=== PATIENT | male | born 1970 | race Caucasian/White ===

== ENCOUNTER → 2016-11-19 | Outpatient (CLI) | payer MEDICARE, OTHER ==
--- NOTE | 2016-11-19 19:43 | PN ---
46-year-old gentleman who has been followed in the sleep center for treatment of severe obstructive sleep apnea-hypopnea syndrome. I discussed results of the sleep studies with patient in detail. She has extremely severe obstructive sleep apnea. Apnea-hypopnea index 94.9, oxygen desaturation to 61.4%, presently he is on treatment with CPAP at 10 cm of water. I checked his CPAP unit. Usage is 30 out of 30 nights for more than 4 hours, average usage 8.3 hours. Patient feels significantly better after he started to use CPAP equipment during the sleep and during the day. [place] Sleepiness Scale is 6. Patient experiencing sometimes too much water condensating in his nasal mask. Level of the machine is about the same as level of his head during this sleep. MEDICATIONS: 1. ( ). 2. Fluoxetine. 3. Lyrica. 4. Atorvastatin. 5. Loratadine. 6. Duloxetine. 7. Carvedilol. 8. Omeprazole. 9. Aspirin. 10. Humulin. 11. ( ). During physical exam, the patient in no distress. VITAL SIGNS: BP 141/72, HR 104, RR 16. Weight 360. Temperature 97.9. Oxygen saturation at room air 94%. HEENT: PERRLA, EOMI. LUNGS: Clear. HEART: S1, S2 regular. ABDOMEN: Obese, soft, nontender. EXTREMITIES: No edema. IMPRESSION: 1. An extremely severe obstructive sleep apnea-hypopnea syndrome. Apnea-hypopnea index 94.9 with oxygen desaturation to severely low at 61.4%, mostly on control on CPAP with a pressure of 10 cm of water. Patient demonstrated great compliance with treatment, benefiting from treatment. 2. Obesity. 3. No significant periodic limb movements. 4. Hypertension. 5. Diabetes mellitus. 6. Peripheral neuropathy secondary to diabetes. 7. Hyperlipidemia. 8. Seasonal allergies. 9. Anxiety. PLAN: 1. Continue treatment with CPAP every night for the whole night. 2. Patient will change position although CPAP unit comparing to his ( ) done about one feet. 3. Sleeve for the tube, if necessary, we will use ( ) in the future. 4. Consider to change nasal mask to nasal pillows mask. 5. No driving if feeling any sleepiness. 6. Losing weight. Thank you very much for allowing me to participate in the management of your patient.
== END | disposition home or self-care (01) ==
LOC: SLEEP 15:05
PROVIDERS: ATTEND Internal Medicine
DX: G47.33 Obstructive sleep apnea (adult) (pediatric) (principal); E66.9 Obesity, unspecified; I10 Essential (primary) hypertension; E11.9 Type 2 diabetes mellitus without complications; G62.9 Polyneuropathy, unspecified; E78.5 Hyperlipidemia, unspecified; F41.9 Anxiety disorder, unspecified; T78.49XA Other allergy, initial encounter; Z79.4 Long term (current) use of insulin; Z79.82 Long term (current) use of aspirin; Z79.899 Other long term (current) drug therapy

== ENCOUNTER → 2017-11-04 | Outpatient (CLI) | payer MEDICARE, OTHER ==
--- NOTE | 2017-11-04 12:20 | PN ---
PROGRESS NOTE FOLLOW-UP VISIT DATE OF SERVICE: 11/04/2017 A 47-year-old gentleman has been followed in sleep center for treatment of obstructive sleep apnea-hypopnea syndrome. Patient continued to use his CPAP equipment every night for the whole night without significant problems. Previously he had problem with condensation of water in the tube after our recommendations he is fine now, no condensation and he may have a little bit discomfort with his mask. Otherwise, everything works well for him. I checked his CPAP unit. CPAP pressure 10 cm of water. The usage is 100% of the time more than 4 hours. Average usage is 8.7 hours per night. Apnea-hypopnea index only 2.4. No any significant leak from the machine. [place] Sleepiness Scale 11. MEDICATIONS: Fluoxetine, Lyrica, atorvastatin, loratadine, carvedilol, omeprazole, aspirin, Humulin. PHYSICAL EXAM: During physical exam, patient in no distress. VITAL SIGNS: BP 126/67, HR 104, RR 16, height 6 feet and 2 inches, weight 357, BMI 45.8. The patient has lost 3 pounds comparing with the previous visit. Temperature 97.6, oxygen saturation room air 93%. HEENT: PERRLA, EOMI. Extremely low position of soft palate, Mallampati 4. NECK: Supple, no JVD. Thyroid is not palpable. LUNGS: Clear to percussion and to auscultation. Good air exchange. No wheezing or rhonchi. HEART: S1, S2 regular. No murmurs, gallops, or rubs. ABDOMEN: Soft and nontender. Bowel sounds are present. No organomegaly appreciated. EXTREMITIES: Status post amputation of toes on the left forefoot and some sore on the left foot. [employer]ITION[employer]HT[employer]: Awake, alert, and oriented X3. Cranial nerves 2 to 7 intact. There is no fasciculation or atrophy. noted. No focal deficits observed. IMPRESSION: 1. Obstructive sleep apnea-hypopnea syndrome on full control with CPAP at 10 cm of water. Patient demonstrated 100% compliance with treatment benefitting from treatment. 2. Hypertension. 3. Diabetes mellitus. 4. Peripheral neuropathy secondary to diabetes. 5. Status post toe amputation on the left foot. 6. Some sore on the left foot, patient under evaluation for possible surgical treatment. 7. Hyperlipidemia. 8. Seasonal allergy. 9. Anxiety. 10.Obesity. PLAN: 1. Continue treatment with CPAP every night. 2. Losing weight. 3. Sleep hygiene with regular time in bed for 7-1/2 hours. 4. No driving if feeling sleepiness. 5. Prescription for all necessary supplies including mask, tube, filters. We fit patient with the new style of the mask AirFit N 10 standard and patient likes this mask very much. I will send prescription for that. Thank you very much for allowing me to participate in management of your patient. Follow-up visit in one year or earlier if patient has any problems. Sincerely, Herbert Lynn MD, PhD, FAASM Diplomat of [employer] [place] [employer] [place] [employer] Hematology Oncology Consultant of [facility] [place] MMODL / IJN: [id number] /
== END | disposition home or self-care (01) ==
LOC: SLEEP 10:53
PROVIDERS: ATTEND Internal Medicine
DX: G47.33 Obstructive sleep apnea (adult) (pediatric) (principal); E66.9 Obesity, unspecified; F41.9 Anxiety disorder, unspecified; J30.2 Other seasonal allergic rhinitis; E78.5 Hyperlipidemia, unspecified; E11.42 Type 2 diabetes mellitus with diabetic polyneuropathy; I10 Essential (primary) hypertension; Z99.89 Dependence on other enabling machines and devices; Z79.899 Other long term (current) drug therapy; Z79.82 Long term (current) use of aspirin; Z79.4 Long term (current) use of insulin; Z89.422 Acquired absence of other left toe(s)

== ENCOUNTER → 2019-02-15 | Outpatient (CLI) | payer MEDICARE, OTHER ==
[2019-02-15 13:49] VITALS: BP 145/79; PULSE 98; TEMP 98.5; BMI 43.7
--- NOTE | 2019-02-15 14:07 | P.HPBAR ---
Bariatric H&P - History & Physicial H&P Date: 02/15/19 History & Physicial: Visit/CC: consultation for RnY Patient initial contact: Initial weight: 154.63 kg Initial weight in pounds: 340.90 Height: 6 ft 3.75 in Initial BMI: 41.8 Last weight: Current weight: 161.932 kg Current weight in pounds: 357.00 Current BMI: 43.7 [place] body weight (based on NIH guidelines): 90.945 kg Excess body weight loss: The patient is a 48 year-old M who presents for Bariatric Assessment. HPI: He comes in with multiple wound debridements of his foot where he has diabetic foot ulcers. He has partial foot amputations. His blood sugars are now improved from over 9 to less than 7 and is seeing an bark fitter. He is looking into the gastric bypass for weight loss. ABDOMEN: Unremarkable MS: Partial amputation of both feet. Has foot boots ASSESSMENT: 1. Morbid obesity PLAN: 1. Bariatric labs 2. Cardiac risk assessment 3. Completion of Psych and dietary education Past Medical History Past Medical History: Diabetes Mellitus, Deep Vein Thrombosis (DVT), GERD/Reflux, Hypertension, Neurologic Disorder Additional Past Medical History / Comment(s): Type 2 DM, neuropathy in all four extremities which has led to removal of all ten of his toes, DVT hx in left leg, DVT right shoulder secondary to PICC, stress test showed "Mini heart attack", 02/15/19: currently has open wound on right foot being treated by Dr. Luke Garcia [address] [place] [address] History of Any Multi-Drug Resistant Organisms: None Reported, MRSA Year Discovered:: 2011 MDRO Source:: Left foot Past Surgical History: Orthopedic Surgery Additional Past Surgical History / Comment(s): bilateral feet all digits amputated, Staph infection in left thigh secondary to abcess removed surgically , multiple debridments and skin graft surgeries to bilateral feet Past Anesthesia/Blood Transfusion Reactions: No Reported Reaction Additional Past Anesthesia/Blood Transfusion Reaction / Comm: No blood transfusion to date Past Psychological History: Anxiety, Depression Additional Psychological History / Comment(s): Takes prozac, xanax, lyrica, and cymbalta Smoking Status: Former smoker Past Alcohol Use History: Occasional Additional Past Alcohol Use History / Comment(s): quit smoking cigarettes in 2003, Past Drug Use History: Marijuana Additional Drug Use History / Comment(s): 02/15/19: Currently uses marijuana. - Past Family History Father Family Medical History: Congestive Heart Failure (CHF), CVA/TIA Additional Family Medical History / Comment(s): at age 79 Mother Family Medical History: Cancer, COPD Additional Family Medical History / Comment(s): leukemia, at age 80 Surgical - Exam Vital Signs Temp Pulse BP 98.5 F 98 145/79 02/15/19 13:16 02/15/19 13:16 02/15/19 13:16 Bariatric Checklist Checklist: Plan: Checklist: EGD: 1. Hiatal hernia: 2. H. Pylori: HgbA1c: Vitamin D: Smoking: Former smoker Primary care physician referral: Willard Goss) Psychiatry clearance: Cardiology clearance: Sleep study: Diet journal: VTE risk score: VTE risk level: Rehab needs at discharge:
[2019-02-15 16:01] LABS: HCT 38.6 % (39.0-53.0); HGB 12.8 gm/dL (13.0-17.5); MCH 29.9 pg (25.0-35.0); MCHC 33.1 g/dL (31.0-37.0); MCV 90.2 fL (80.0-100.0); Mean Platelet Volume 7.8; Platelet Count 221 k/uL (150-450); RBC 4.28 m/uL (4.30-5.90); RDW 14.4 % (11.5-15.5); WBC 5.8 k/uL (3.8-10.6)
[2019-02-15 16:03] LABS: Partial Thromboplastin Time 24.2 sec (22.0-30.0); Prothrombin Time 10.3 sec (9.0-12.0)
[2019-02-16 00:26] LABS: Iron Saturation 23.2 (15.00-50.00)
[2019-02-16 00:30] LABS: Albumin 4.5 g/dL (3.80-4.90); Albumin/Globulin Ratio 1.45 (1.60-3.17); Calcium 9.7 mg/dL (8.7-10.3); Globulin 3.1 g/dL (1.6-3.3); LDL Cholesterol,Calculated 42.4 mg/dL (0.0-131.0); Magnesium 1.6 mg/dL (1.5-2.4); Phosphorus 2.6 mg/dL (2.4-5.1); Potassium 3.9 mmol/L (3.5-5.5); Total Bilirubin 0.5 mg/dL (0.3-1.2); Total Protein 7.6 g/dL (6.2-8.2); VLDL Calculation 54.6 mg/dL (5.00-40.00)
[2019-02-16 00:51] LABS: Vitamin D 25 Hydroxy 9.8 ng/mL (30.0-100.0)
[2019-02-16 00:57] LABS: Parathyroid Hormone Intact 32.9 pg/mL (14.0-72.0)
[2019-02-16 13:59] LABS: Zinc, Serum 68 ug/dL (60-130)
[2019-02-17 06:24] LABS: Vitamin A 74 ug/dL (38-106)
[2019-02-18 10:36] LABS: Vit B1(Thiamine) 41 ug/L (38-122)
== END ==
LOC: BARWHC3 13:04
PROVIDERS: ATTEND Surgery Plastic and Reconstructive Surgery
DX: E66.01 Morbid (severe) obesity due to excess calories (principal); E11.621 Type 2 diabetes mellitus with foot ulcer; L97.509 Non-pressure chronic ulcer of other part of unspecified foot with unspecified severity; I10 Essential (primary) hypertension; F12.90 Cannabis use, unspecified, uncomplicated; E11.40 Type 2 diabetes mellitus with diabetic neuropathy, unspecified; Z98.890 Other specified postprocedural states; Z87.891 Personal history of nicotine dependence; Z86.718 Personal history of other venous thrombosis and embolism; Z68.41 Body mass index [BMI] 40.0-44.9, adult
CPT/HCPCS: 84255; 84134; 84425; 80061; 80053; 82607; 82728; 82525; 82746; 83540; 83550; 83735; 84100; 84443; 84590; 84630; 85027; 85610; 85730; 82306; 83970; 83036; 93005; 36415; G0463; 99211

== ENCOUNTER → 2019-11-01 | Outpatient (CLI) | payer MEDICARE, OTHER ==
[2019-11-01 13:56] VITALS: BP 155/77; PULSE 99; RESP 16; TEMP 97.9; BMI 45.3
--- NOTE | 2019-11-01 15:54 | P.PN ---
Subjective Progress Note Date: 11/01/19 DATE OF SERVICE: 11/01/2019 CHIEF COMPLAINT: Morbid obesity HISTORY OF PRESENT ILLNESS: Yunier Luciano is a 48-year-old male who comes with lifelong morbid obesity. He comes in with partial foot amputations from complications from his diabetes. He is looking into the gastric bypass for weight loss. As a result of his morbid obesity, he comes in with insulin dependent diabetes type 2, obstructive sleep apnea, coronary artery disease, and multiple DVTs. He comes in with problems related to his morbid obesity. He has chronic foot ulcers. He is pending healing of his foot and sees a entry specialists. At height of 6 feet 3.75 inches, his ideal body weight is 199 pounds. He comes in 364 pounds from 356 pounds, 8 months ago. He has gained 8 pounds in 8 months. His body mass index is up to 44.7 from 43.7. He is 165 pounds overweight. PAST MEDICAL HISTORY: 1. Morbid obesity due to excess calories 2. Body mass index of 44.7 3. Diabetes type 2, insulin dependent 4. Diabetic neuropathy 5. Deep venous thrombosis leg 6. Gastroesophageal reflux disease 7. Hypertensive heart disease 8. Ischemic cardiomyopathy 9. Chronic right foot wound 10. MRSA infection 11. Anxiety 12. Depressive disorder 13. Seasonal allergies 14. Hyperlipidemia 15. Obstructive sleep apnea. PAST SURGICAL HISTORY: 1. Multiple toe amputations 2. Partial right foot amputation 3. PICC line placement, right shoulder 4. Upper endoscopy HOME MEDICATIONS: Home Medications Medication Instructions Recorded Confirmed Aspirin [Adult Low Dose Aspirin EC] 81 mg PO DAILY 05/28/16 02/15/19 Atorvastatin Calcium [Lipitor] 10 mg PO HS 05/28/16 02/15/19 FLUoxetine HCL [PROzac] 20 mg PO DAILY 05/28/16 02/15/19 Pregabalin [Lyrica] 150 mg PO BID 05/28/16 02/15/19 Carvedilol [Coreg] 25 mg PO BID 06/29/16 02/15/19 DULoxetine HCL [Cymbalta] 60 mg PO HS 06/29/16 02/15/19 Omeprazole [PriLOSEC] 20 mg PO AC-BRKFST 06/29/16 02/15/19 Multivitamin [Children's 1 tab PO DAILY 07/22/16 02/15/19 Multivitamins] ALPRAZolam [Xanax] 1 mg PO BID PRN 02/15/19 02/15/19 Exenatide Microspheres [Bydureon 2 mg SQ WEEKLY 02/15/19 02/15/19 Pen] Fenofibrate [Lofibra] 200 mg PO DAILY 02/15/19 02/15/19 Fexofenadine HCl [Latanya Allergy] 180 mg PO DAILY 02/15/19 02/15/19 Fluticasone Nasal [place] [Flonase 1 spray EA NOSTRIL DAILY 02/15/19 02/15/19 Nasal [place]] Glimepiride [Amaryl] 8 mg PO AC-BRKFST 02/15/19 02/15/19 Icosapent Ethyl [Vascepa] 1 gm PO BID 02/15/19 02/15/19 Insulin Aspart (For Pump) [NovoLOG 0.01 unit SQ-PUMP CONTINUOUS 02/15/19 02/15/19 (For Pump)] Olmesartan/Amlodipin/Hcthiazid 1 each PO DAILY 02/15/19 02/15/19 [Tribenzor 40-10-25 mg Tablet] Pioglitazone HCl 45 mg PO DAILY 02/15/19 02/15/19 metFORMIN HCL 1,000 mg PO BID 02/15/19 02/15/19 ALLERGIES: Allergies Allergy/AdvReac Type Severity Reaction Status Date / Time adhesive tape Allergy Rash/Hives Verified 02/15/19 13:31 SOCIAL HISTORY: Past tobacco use. FAMILY HISTORY: No family history of ulcerative colitis disease or Crohn's disease. Family history of morbid obesity including heart disease and diabetes. No lupus in the family. No reports of stomach or esophageal cancer. REVIEW OF ORGAN SYSTEMS: CONSTITUTIONAL: At height of 6 feet 3.75 inches, his ideal body weight is 199 pounds. Highest 364 pounds. His body mass index is 44.7. He is 165 pounds overweight. HEENT: Denies any active troubles with hearing. Has troubles with vision. ENDOCRINE: Has diabetes. No hypothyroidism. CARDIOVASCULAR: Past reports of palpitations, heart attacks, and chest pain. RESPIRATORY: Has daytime somnolence. Has obstructive sleep apnea. GASTROINTESTINAL: Denies any bright red blood per rectum. No diarrhea. No constipation. MUSCULOSKELETAL: Has lower back pain and joint pain. Has osteoarthritis of the knees. History of bilateral lower extremity edema. History of chronic wound infection. Has bilateral partial foot amputations. NEURO: No headaches. No seizure disorders. PSYCH: Has depression. No suicidal ideation. Has anxiety. RHEUMATOLOGIC: No lupus. No rheumatoid arthritis. HEMATOLOGIC: Denies any abnormal bleeding or bruising. Personal history of DVTs. SKIN: No skin cancer. MRSA of the foot. PHYSICAL EXAM: VITAL SIGNS: Height 6 foot 3.75 inches, weight 364 pounds. BMI 44.7 Vital Signs Temp 97.9 F 11/01/19 13:51 Pulse 99 11/01/19 13:51 Resp 16 11/01/19 13:51 BP 155/77 11/01/19 13:51 Pulse Ox GENERAL: Well-developed in no acute distress. HEENT: No scleral icterus. Extraocular movements grossly intact. Hears conversational speech. No nasal drainage. NECK: Supple without lymphadenopathy. CHEST: Nonlabored respirations with equal bilateral excursions. CARDIOVASCULAR: Regular rate and regular rhythm. Distal 2+ pulses. ABDOMEN: Obese, soft, nontender, nondistended. MUSCULOSKELETAL: No clubbing, cyanosis. Venous stasis disease lower extremities. Partial amputation of both feet. Has foot boots. NEURO: No focal or lateralizing signs. Cranial nerves 2 through 12 grossly within normal limits. PSYCH: Appropriate affect. Alert and oriented to person, place and time. SKIN: Good skin turgor. Well perfused. LABS: Vitamin D is low, Hgb A1c of 7%, Hgb low, HDL is low EKG shows normal sinus rhythm ASSESSMENT: 1. Morbid obesity due to excess calories 2. Body mass index of 45.3 3. Diabetes type 2, insulin dependent 4. Diabetic neuropathy 5. Deep venous thrombosis leg 6. Gastroesophageal reflux disease 7. Hypertensive heart disease 8. Ischemic cardiomyopathy 9. Chronic right foot wound 10. MRSA infection 11. Anxiety 12. Depressive disorder 13. Seasonal allergies 14. Hyperlipidemia 15. Obstructive sleep apnea. 16. Vitamin D deficiency 17. Iron deficiency anemia PLAN: 1. He is looking into the gastric bypass, and at baseline is high surgical risk with his severe diabetes type 2, severe diabetic neuropathy with partial foot amputations. 2. Recommend upper scope for risk of diabetic gastroparesis. 3. Will need bariatric labs. 4. He has completed stress test in March 2019. 5. Follow up upon completion of his upper endoscopy. Objective - Vital Signs Vital signs: Vital Signs Temp 97.9 F 11/01/19 13:51 Pulse 99 11/01/19 13:51 Resp 16 11/01/19 13:51 BP 155/77 11/01/19 13:51 Pulse Ox Intake & Output 10/31/19 11/01/19 11/01/19 18:59 06:59 18:59 Weight 165.561 kg
== END | disposition home or self-care (01) ==
LOC: BARWHC3 13:08
PROVIDERS: ATTEND Surgery Plastic and Reconstructive Surgery
DX: E66.01 Morbid (severe) obesity due to excess calories (principal); Z68.42 Body mass index [BMI] 45.0-49.9, adult; E11.9 Type 2 diabetes mellitus without complications; I82.409 Acute embolism and thrombosis of unspecified deep veins of unspecified lower extremity; K21.9 Gastro-esophageal reflux disease without esophagitis; I11.9 Hypertensive heart disease without heart failure; I25.5 Ischemic cardiomyopathy; A49.02 Methicillin resistant Staphylococcus aureus infection, unspecified site; F41.9 Anxiety disorder, unspecified; F32.9 Major depressive disorder, single episode, unspecified; J30.2 Other seasonal allergic rhinitis; E78.5 Hyperlipidemia, unspecified; G47.33 Obstructive sleep apnea (adult) (pediatric); E55.9 Vitamin D deficiency, unspecified; D50.9 Iron deficiency anemia, unspecified; S91.301A Unspecified open wound, right foot, initial encounter; E11.40 Type 2 diabetes mellitus with diabetic neuropathy, unspecified; E11.621 Type 2 diabetes mellitus with foot ulcer; Z87.891 Personal history of nicotine dependence; Z79.84 Long term (current) use of oral hypoglycemic drugs; Z79.4 Long term (current) use of insulin; Z79.82 Long term (current) use of aspirin; Z79.899 Other long term (current) drug therapy; Z91.09 Other allergy status, other than to drugs and biological substances
CPT/HCPCS: 99211

== ENCOUNTER → 2019-11-13 | Outpatient (CLI) | payer MEDICARE, OTHER ==
[2019-11-13 11:12] VITALS: BMI 45.8
== END | disposition home or self-care (01) ==
LOC: BARWHC3 08:34
PROVIDERS: ATTEND Surgery Plastic and Reconstructive Surgery
DX: E66.01 Morbid (severe) obesity due to excess calories (principal); E11.65 Type 2 diabetes mellitus with hyperglycemia; Z68.42 Body mass index [BMI] 45.0-49.9, adult
CPT/HCPCS: 97804

== ENCOUNTER 2019-11-20 06:17 | Day surgery (SDC) | payer MEDICARE, OTHER ==
[2019-11-16 11:33] VITALS: BMI 45.0
--- NOTE | 2019-11-20 03:42 | P.GSHP ---
History of Present Illness H&P Date: 11/20/19 CHIEF COMPLAINT: GERD HISTORY OF PRESENT ILLNESS: The patient is a 49-year-old male who presents reports gastroesophageal reflux disease. Upper endoscopy was offered for further evaluation and management. PAST MEDICAL HISTORY: Please see list. PAST SURGICAL HISTORY: Please see list. MEDICATIONS: Please see list. ALLERGIES: Please see list. SOCIAL HISTORY: No illicit drug use FAMILY HISTORY: No reports of Crohn disease or ulcerative colitis. REVIEW OF ORGAN SYSTEMS: CONSTITUTIONAL: No reports of fevers or chills. GI: Denies any blood in stools or constipation. PHYSICAL EXAM: VITAL SIGNS: Stable GENERAL: Well-developed and pleasant in no acute distress. HEENT: No scleral icterus. Extraocular movements grossly intact. Moist buccal mucosa. NECK: Supple without lymphadenopathy. CHEST: Unlabored respirations. Equal bilateral excursions. CARDIOVASCULAR: Regular rate and rhythm. Distal 2+ pulses. ABDOMEN: Soft, nondistended. MUSCULOSKELETAL: No clubbing, cyanosis, or edema. ASSESSMENT: 1. Gastroesophageal reflux disease PLAN: 1. Recommend proceeding with an upper endoscopy Past Medical History Past Medical History: CVA/TIA, Diabetes Mellitus, Deep Vein Thrombosis (DVT), GERD/Reflux, Hypertension, Neurologic Disorder, Sleep Apnea/CPAP/BIPAP Additional Past Medical History / Comment(s): neuropathy in all four extremities which has led to removal of all ten of his toes, DVT hx in left leg, DVT right shoulder secondary to PICC, stress test showed "Mini heart attack", 02/15/19, states no residual effects, History of Any Multi-Drug Resistant Organisms: MRSA Date of last positivie culture/infection: 2011 MDRO Source:: Left foot Past Surgical History: Orthopedic Surgery Additional Past Surgical History / Comment(s): bilateral feet all digits amputated, Staph infection in left thigh secondary to abcess removed surgically, multiple debridments and skin graft surgeries to bilateral feet, Past Anesthesia/Blood Transfusion Reactions: Previous Problems w/ Anesthesia, Postoperative Nausea & Vomiting (PONV) Additional Past Anesthesia/Blood Transfusion Reaction / Comment(s): had "high fever last surgery 04/2019, [facility]" anesthesia record obtained from then, no mention of temp or malignant hyperthermia, Past Psychological History: Anxiety, Depression Additional Psychological History / Comment(s): Takes prozac, xanax, lyrica, and cymbalta Smoking Status: Former smoker Past Alcohol Use History: Rare Additional Past Alcohol Use History / Comment(s): quit smoking cigarettes in 2003, Past Drug Use History: Marijuana Additional Drug Use History / Comment(s): 02/15/19: Currently uses marijuana. - Past Family History Father Family Medical History: Congestive Heart Failure (CHF), CVA/TIA Additional Family Medical History / Comment(s): at age 79 Mother Family Medical History: Cancer, COPD Additional Family Medical History / Comment(s): leukemia, at age 80 Medications and Allergies Home Medications Medication Instructions Recorded Confirmed Type Aspirin [Adult Low Dose Aspirin EC] 81 mg PO DAILY 05/28/16 11/16/19 History Atorvastatin Calcium [Lipitor] 10 mg PO HS 05/28/16 11/16/19 History FLUoxetine HCL [PROzac] 20 mg PO DAILY 05/28/16 11/16/19 History Pregabalin [Lyrica] 150 mg PO BID 05/28/16 11/16/19 History DULoxetine HCL [Cymbalta] 60 mg PO HS 06/29/16 11/16/19 History Omeprazole [PriLOSEC] 20 mg PO -KFST 06/29/16 11/16/19 History Multivitamin [Children's 1 tab PO DAILY 07/22/16 11/16/19 History Multivitamins] ALPRAZolam [Xanax] 1 mg PO BID PRN 02/15/19 11/16/19 History Exenatide Microspheres [Bydureon 2 mg SQ SEARS 02/15/19 11/16/19 History Pen] Fenofibrate [Lofibra] 200 mg PO DAILY 02/15/19 11/16/19 History Fluticasone Nasal [place] [Flonase 1 spray EA NOSTRIL DAILY 02/15/19 11/16/19 History Nasal [place]] Glimepiride [Amaryl] 8 mg PO -BRKFST 02/15/19 11/16/19 History Icosapent Ethyl [Vascepa] 1 gm PO BID 02/15/19 11/16/19 History Insulin Aspart (For Pump) [NovoLOG 0.01 unit SQ-PUMP CONTINUOUS 02/15/19 11/16/19 History (For Pump)] Olmesartan/Amlodipin/Hcthiazid 1 each PO DAILY 02/15/19 11/16/19 History [Tribenzor 40-10-25 mg Tablet] Pioglitazone HCl 45 mg PO DAILY 02/15/19 11/16/19 History metFORMIN HCL 1,000 mg PO BID 02/15/19 11/16/19 History Carvedilol [Coreg] 25 mg PO BID 11/16/19 11/16/19 History Cholecalciferol [Vitamin D3 (25 5,000 unit PO BID 11/16/19 11/16/19 History Mcg = 1000 Iu)] Ferrous Sulfate [Feosol] 325 mg PO DAILY 11/16/19 11/16/19 History Allergies Allergy/AdvReac Type Severity Reaction Status Date / Time adhesive tape Allergy Rash/Hives Verified 11/16/19 11:34
[~2019-11-20 06:17] MED LIST: LACTATED RINGERS 1,000 ML IV SCH; LIDOCAINE 1% 20 ML VIAL (10MG/ML) FOR IV START INTRADERMA PRN
[2019-11-20 07:18] VITALS: TEMP 97.8
[2019-11-20 07:19] LABS: Glucose,Whole Blood 109 mg/dL (75-99)
[2019-11-20] MEDS ORDERED: KETAMINE 10 MG/ML 20 ML VIAL ONE (07:25)
[2019-11-20] MEDS ORDERED: LIDOCAINE 1% INJ 10MG/ML (20 ML MDV) ONE (07:25)
[2019-11-20] MEDS ORDERED: PROPOFOL 10 MG/ML 20 ML VIAL IV ONE (07:25)
--- NOTE | 2019-11-20 07:37 | P.PCN ---
Date of Procedure: 11/20/19 Description of Procedure: PREOPERATIVE DIAGNOSIS: Gastroesophageal reflux disease. Morbid obesity. POSTOPERATIVE DIAGNOSIS: Morbid obesity. Gastritis. Gastroesophageal reflux disease. Gastroparesis secondary to diabetes with moderate retained food OPERATION: Esophagogastroduodenoscopy with biopsies along gastric cardia SURGEON: Elizabeth Kolb MD ANESTHESIA: MAC. INDICATIONS: The patient is a 47-year-old female who presents with a history of reflux disease. Benefits and risks of the procedure were described. Informed consent was obtained. DESCRIPTION: The patient was brought into the endoscopy suite and laid in the left lateral decubitus position. An Olympus gastroscope was passed along the posterior oropharynx down to the distal esophagus where the squamocolumnar junction was encountered at 40 cm from the incisors. The stomach was entered and moderate retained food was identified obscuring view of the pylorus. Additional findings are listed below. Biopsies with cold forceps were obtained of the gastric cardia. Retroflexion of the scope confirmed Hill grade 1 lower esophageal kaushal ve. The squamocolumnar junction demonstrated LA grade A erosive esophagitis. The stomach was desufflated. The patient tolerated the procedure well. FINDINGS: Squamocolumnar junction 50 cm from the incisors. Diaphragmatic hiatus at 50 cm. Hill grade 1 lower esophageal valve. LA grade A erosive esophagitis. Chronic gastritis Moderate retained food consistent with gastroparesis RECOMMENDATIONS: Upper endoscopy as needed. Recommend Reglan for gastroparesis Recommend gastric bypass for severe gastroparesis Plan - Discharge Summary Discharge Rx Participant: No New Discharge Prescriptions: No Action Pregabalin [Lyrica] 150 mg PO BID FLUoxetine HCL [PROzac] 20 mg PO DAILY Atorvastatin Calcium [Lipitor] 10 mg PO HS Aspirin [Adult Low Dose Aspirin EC] 81 mg PO DAILY Omeprazole [PriLOSEC] 20 mg PO AC-BRKFST DULoxetine HCL [Cymbalta] 60 mg PO HS Multivitamin [Children's Multivitamins] 1 tab PO DAILY Icosapent Ethyl [Vascepa] 1 gm PO BID Fluticasone Nasal [place] [Flonase Nasal [place]] 1 spray EA NOSTRIL DAILY Olmesartan/Amlodipin/Hcthiazid [Tribenzor 40-10-25 mg Tablet] 1 each PO DAILY Exenatide Microspheres [Bydureon Pen] 2 mg SQ SEARS Insulin Aspart (For Pump) [NovoLOG (For Pump)] 0.01 unit SQ-PUMP CONTINUOUS ALPRAZolam [Xanax] 1 mg PO BID PRN PRN Reason: Anxiety Pioglitazone HCl 45 mg PO DAILY Fenofibrate [Lofibra] 200 mg PO DAILY metFORMIN HCL 1,000 mg PO BID Glimepiride [Amaryl] 8 mg PO -[facility] Ferrous Sulfate [Feosol] 325 mg PO DAILY Cholecalciferol [Vitamin D3 (25 Mcg = 1000 Iu)] 5,000 unit PO BID Carvedilol [Coreg] 25 mg PO BID Discharge Medication List Aspirin [Adult Low Dose Aspirin EC] 81 mg PO DAILY 05/28/16 [History] Atorvastatin Calcium [Lipitor] 10 mg PO HS 05/28/16 [History] FLUoxetine HCL [PROzac] 20 mg PO DAILY 05/28/16 [History] Pregabalin [Lyrica] 150 mg PO BID 05/28/16 [History] DULoxetine HCL [Cymbalta] 60 mg PO HS 06/29/16 [History] Omeprazole [PriLOSEC] 20 mg PO -[facility] 06/29/16 [History] Multivitamin [Children's Multivitamins] 1 tab PO DAILY 07/22/16 [History] ALPRAZolam [Xanax] 1 mg PO BID PRN 02/15/19 [History] Exenatide Microspheres [Bydureon Pen] 2 mg SQ SEARS 02/15/19 [History] Fenofibrate [Lofibra] 200 mg PO DAILY 02/15/19 [History] Fluticasone Nasal [place] [Flonase Nasal [place]] 1 spray EA NOSTRIL DAILY 02/15/19 [History] Glimepiride [Amaryl] 8 mg PO -KT 02/15/19 [History] Icosapent Ethyl [Vascepa] 1 gm PO BID 02/15/19 [History] Insulin Aspart (For Pump) [NovoLOG (For Pump)] 0.01 unit SQ-PUMP CONTINUOUS 02/15/19 [History] Olmesartan/Amlodipin/Hcthiazid [Tribenzor 40-10-25 mg Tablet] 1 each PO DAILY 02/15/19 [History] Pioglitazone HCl 45 mg PO DAILY 02/15/19 [History] metFORMIN HCL 1,000 mg PO BID 02/15/19 [History] Carvedilol [Coreg] 25 mg PO BID 11/16/19 [History] Cholecalciferol [Vitamin D3 (25 Mcg = 1000 Iu)] 5,000 unit PO BID 11/16/19 [History] Ferrous Sulfate [Feosol] 325 mg PO DAILY 11/16/19 [History] Follow [facility]ment(s[facility] [facility] [place] [place] [facility] [place] Patient Instructions/Handouts: Diabetic Gastroparesis (DC), Gastroparesis (DC) Discharge Disposition: HOME SELF-CARE
[2019-11-20 07:41] VITALS: RESP 16
[2019-11-20 07:55] VITALS: BP 123/72; PULSE 85
== END 2019-11-20 08:08 | disposition home or self-care (01) ==
LOC: ORWHC2ENDO 06:17
PROVIDERS: ATTEND Surgery Plastic and Reconstructive Surgery
DX: K21.0 Gastro-esophageal reflux disease with esophagitis (principal); K22.10 Ulcer of esophagus without bleeding; K29.50 Unspecified chronic gastritis without bleeding; I10 Essential (primary) hypertension; E66.01 Morbid (severe) obesity due to excess calories; E11.43 Type 2 diabetes mellitus with diabetic autonomic (poly)neuropathy; K31.84 Gastroparesis; E11.42 Type 2 diabetes mellitus with diabetic polyneuropathy; F41.9 Anxiety disorder, unspecified; F32.9 Major depressive disorder, single episode, unspecified; G47.33 Obstructive sleep apnea (adult) (pediatric); Z86.73 Personal history of transient ischemic attack (TIA), and cerebral infarction without residual deficits; Z86.718 Personal history of other venous thrombosis and embolism; Z99.89 Dependence on other enabling machines and devices; Z98.890 Other specified postprocedural states; Z86.14 Personal history of Methicillin resistant Staphylococcus aureus infection; Z79.899 Other long term (current) drug therapy; Z87.891 Personal history of nicotine dependence; Z79.82 Long term (current) use of aspirin; Z79.4 Long term (current) use of insulin; Z79.51 Long term (current) use of inhaled steroids; Z91.048 Other nonmedicinal substance allergy status; Z68.42 Body mass index [BMI] 45.0-49.9, adult
CPT/HCPCS: 88305; 43239; J2001; J2704

== ENCOUNTER → 2019-12-06 | Outpatient (CLI) | payer MEDICARE, OTHER ==
[2019-12-06 14:55] VITALS: BP 160/75; PULSE 93; RESP 16; TEMP 97.6; BMI 46.0
--- NOTE | 2019-12-06 15:15 | P.PN ---
Subjective Progress Note Date: 12/06/19 HPI: He reports gastroparesis. He has history of blood clots in the arm and legs. No PE. He has history of sores along his feet. LAB: PLAN: 1. Consent 2. May need PE/DVT prophylaxis. 3. Diet of liquid for 2 days 4. Will need blood sugar monitor post op 5. Home health care. Objective - Vital Signs Vital signs: Vital Signs Temp 97.6 F 12/06/19 14:52 Pulse 93 12/06/19 14:52 Resp 16 12/06/19 14:52 BP 160/75 12/06/19 14:52 Pulse Ox Intake & Output 12/05/19 12/06/19 12/06/19 18:59 06:59 18:59 Weight 168.283 kg
== END ==
LOC: BARWHC3 14:20
PROVIDERS: ATTEND Surgery Plastic and Reconstructive Surgery
DX: K31.84 Gastroparesis (principal); Z86.79 Personal history of other diseases of the circulatory system; Z87.39 Personal history of other diseases of the musculoskeletal system and connective tissue
CPT/HCPCS: 99211

== ENCOUNTER → 2019-12-27 | Outpatient (CLI) | payer MEDICARE, OTHER ==
--- NOTE | 2019-12-27 16:13 | PN ---
PROGRESS NOTE DATE OF SERVICE: 12/27/2019 49-year-old gentleman who has [facility] for treatment of obstructive sleep apnea-hypopnea syndrome. The patient successfully continues to use his CPAP equipment every night for the whole night trying to lose weight. His weight is down 20 pounds since previous visit. I checked his CPAP unit. CPAP pressure is 8 cm of water. Usage is every night for more than 4 hours with average usage 10.2 hours per night. Masks fit 100%. Apnea-hypopnea index reading from the machine 3.5, which is in normal range. [place] Sleepiness Scale today is 3, which is normal. MEDICATIONS: NovoLog, fluticasone metformin, glimepiride, , Tribenzor, fenofibrate, atorvastatin, Lipitor, , duloxetine, carvedilol, Omeprazole . PHYSICAL EXAM: Patient in no distress. BP 127/65, HR 86, RR 16, height 6 feet 3-1/2 inches, weight 348.8 pounds, body mass index 42.9, temperature 98.2. Oxygen saturation at room air 92%. Oropharynx: Extremely low soft palate, Mallampati 4. NECK: Supple, no JVD. Thyroid is not palpable. LUNGS: Clear to percussion and to auscultation. Good air exchange. No wheezing or rhonchi. HEART: S1, S2 regular. No murmurs, gallops, or rubs. ABDOMEN: Obese. Soft and nontender. Bowel sounds are present. No organomegaly appreciated. EXTREMITIES: No clubbing or cyanosis. OPTICAL COATING TECHNICIAN: Awake, alert, and oriented X3. Cranial nerves 2 to 7 intact. There is no fasciculation or atrophy. noted. No focal deficits observed. IMPRESSION: 1. Obstructive sleep apnea-hypopnea syndrome. Patient demonstrated 100% compliance with treatment benefitting from treatment, normal respiration on CPAP. 2. Hypertension. 3. Obesity. 4. Diabetes mellitus. 5. History of peripheral neuropathy secondary to diabetes. 6. Status post left foot toe amputation. 7. Hyperlipidemia. 8. Seasonal allergy. 9. History of anxiety. PLAN: 1. Patient will continue to use CPAP equipment every night for the whole night. 2. Losing weight. 3. Sleep hygiene with regular time in bed for at least 7.5 to 8 hours. 4. No driving if feeling sleepiness. 5. I will maintain all necessary CPAP prescriptions including tube, nasal mask and filters. Thank you very much for allowing me to participate in the management of your patient. Sincerely, Herbert Lynn MD, PhD, FAASM Diplomat of [place] Investor of [facility] MMODL / АЛЕКСАНДРN: [id number] /
== END | disposition home or self-care (01) ==
LOC: SLEEP 13:20
PROVIDERS: ATTEND Internal Medicine
DX: G47.33 Obstructive sleep apnea (adult) (pediatric) (principal); I10 Essential (primary) hypertension; E66.9 Obesity, unspecified; E11.9 Type 2 diabetes mellitus without complications; E78.5 Hyperlipidemia, unspecified; J30.2 Other seasonal allergic rhinitis; Z86.59 Personal history of other mental and behavioral disorders; Z86.69 Personal history of other diseases of the nervous system and sense organs; Z89.422 Acquired absence of other left toe(s); Z68.41 Body mass index [BMI] 40.0-44.9, adult; Z79.84 Long term (current) use of oral hypoglycemic drugs; Z79.899 Other long term (current) drug therapy

== ENCOUNTER → 2019-12-28 | Outpatient (CLI) | payer MEDICARE, OTHER ==
[2019-12-28 17:23] LABS: Partial Thromboplastin Time 25.2 sec (22.0-30.0)
[2019-12-28 17:24] LABS: Basophils % (A) 0 %; Eosinophils # (A) 0.2 k/uL (0-0.7); Eosinophils % (A) 3 %; HCT 39.5 % (39.0-53.0); HGB 12.9 gm/dL (13.0-17.5); Lymphocytes # (A) 1.6 k/uL (1.0-4.8); Lymphocytes % (A) 21 %; MCH 30.2 pg (25.0-35.0); MCHC 32.6 g/dL (31.0-37.0); MCV 92.6 fL (80.0-100.0); Mean Platelet Volume 7.9; Monocytes # (A) 0.4 k/uL (0-1.0); Monocytes % (A) 6 %; Neutrophils # (A) 4.9 k/uL (1.3-7.7); Neutrophils % (A) 68 %; Platelet Count 229 k/uL (150-450); RBC 4.27 m/uL (4.30-5.90); RDW 13.2 % (11.5-15.5); WBC 7.3 k/uL (3.8-10.6)
[2019-12-28 17:37] LABS: Albumin 4.8 g/dL (3.5-5.0); Calcium 10.2 mg/dL (8.4-10.2); Potassium 4.3 mmol/L (3.5-5.1); Total Bilirubin 0.7 mg/dL (0.2-1.3); Total Protein 8.1 g/dL (6.3-8.2)
== END | disposition home or self-care (01) ==
LOC: LABWHC1 16:12
PROVIDERS: ATTEND Surgery Plastic and Reconstructive Surgery
DX: Z01.818 Encounter for other preprocedural examination (principal); E11.9 Type 2 diabetes mellitus without complications
CPT/HCPCS: 36415; 80053; 85025; 85610; 85730

== ENCOUNTER 2020-01-01 05:34 | Inpatient (IN) | payer MEDICARE, OTHER ==
[2020-01-01] MEDS ORDERED: ceFAZolin 3 GM in SODIUM CHLORIDE 0.9% 100 ML IVPB ONE (06:00)
[2020-01-01] MEDS ORDERED: HYDROmorphone 0.5 MG/0.5 ML SYRINGE IVP PRN (06:00)
[2020-01-01] MEDS ORDERED: LIDOCAINE 1% (10MG/ML) FOR IV START INTRADERMA PRN (06:00)
[2020-01-01] MEDS ORDERED: MIDAZOLAM 2 MG/2 ML VIAL IV PRN (06:00)
[2020-01-01] MEDS ORDERED: fentaNYL (PF) 50 MCG/ML 2 ML AMP IVP PRN (06:00)
[2020-01-01] MEDS ORDERED: DEXAMETHASONE SOD PHOSPHATE 10 MG/ML 1 ML VIAL IV ONE (06:00)
[2020-01-01 06:25] LABS: Glucose,Whole Blood 100 mg/dL (75-99)
[2020-01-01] MEDS ORDERED: PANTOPRAZOLE 40 MG/10 ML VIAL IV STA (06:26)
[2020-01-01] MEDS ORDERED: CHLORHEXIDINE GLUCONATE 15 ML CUP MUCOUS MEM ONE (06:26)
[2020-01-01] MEDS ORDERED: ENOXAPARIN 40 MG/0.4 ML SYRINGE SQ STA (06:26)
[2020-01-01] MEDS ORDERED: LACTATED RINGERS 1,000 ML IV ONE ×2 (06:32→09:20)
[2020-01-01] MEDS ORDERED: ONDANSETRON 4 MG/2 ML VIAL IVP ONE (06:32)
--- NOTE | 2020-01-01 06:32 | P.GSHP ---
History of Present Illness H&P Date: 01/01/20 DATE OF SERVICE: 01/01/2020 CHIEF COMPLAINT: Morbid obesity HISTORY OF PRESENT ILLNESS: Yunier Luciano is a 49-year-old male who comes with lifelong morbid obesity. He comes in with multiple wound debridements of his foot where he has diabetic foot ulcers. He has partial foot amputations. His b lood sugars are now improved with hemoglobin A1c from 9 to less than 7 and he is seeing an cutter operator brick. He is looking into the gastric bypass for weight loss. As a result of his morbid obesity, he comes in with multiple complications from his morbid obesity including insulin dependent diabetes type 2, obstructive sleep apnea, coronary artery disease, and multiple DVTs. At height of 6 feet 3.75 inches, his ideal body weight is 199 pounds. His weight was 356 pounds. His body mass index is 43.7. He is 157 pounds overweight. PAST MEDICAL HISTORY: 1. Morbid obesity due to excess calories 2. Body mass index of 43.7, initial 3. Diabetes type 2, insulin dependent 4. Diabetic neuropathy 5. Deep venous thrombosis leg 6. Gastroesophageal reflux disease 7. Hypertensive heart disease 8. Ischemic cardiomyopathy 9. Chronic right foot wound 10. MRSA infection 11. Anxiety 12. Depressive disorder 13. Seasonal allergies 14. Hyperlipidemia 15. Obstructive sleep apnea. PAST SURGICAL HISTORY: 1. Multiple toe amputations 2. Partial right foot amputation 3. PICC line placement, right shoulder HOME MEDICATIONS: Home Medications Medication Instructions Recorded Confirmed Aspirin [Adult Low Dose Aspirin EC] 81 mg PO DAILY 05/28/16 02/15/19 Atorvastatin Calcium [Lipitor] 10 mg PO HS 05/28/16 02/15/19 FLUoxetine HCL [PROzac] 20 mg PO DAILY 05/28/16 02/15/19 Pregabalin [Lyrica] 150 mg PO BID 05/28/16 02/15/19 Carvedilol [Coreg] 25 mg PO BID 06/29/16 02/15/19 DULoxetine HCL [Cymbalta] 60 mg PO HS 06/29/16 02/15/19 Omeprazole [PriLOSEC] 20 mg PO AC-BRKFST 06/29/16 02/15/19 Multivitamin [Children's 1 tab PO DAILY 07/22/16 02/15/19 Multivitamins] ALPRAZolam [Xanax] 1 mg PO BID PRN 02/15/19 02/15/19 Exenatide Microspheres [Bydureon 2 mg SQ WEEKLY 02/15/19 02/15/19 Pen] Fenofibrate [Lofibra] 200 mg PO DAILY 02/15/19 02/15/19 Fexofenadine HCl [Latanya Allergy] 180 mg PO DAILY 02/15/19 02/15/19 Fluticasone Nasal [place] [Flonase 1 spray EA NOSTRIL DAILY 02/15/19 02/15/19 Nasal [place]] Glimepiride [Amaryl] 8 mg PO AC-BRKFST 02/15/19 02/15/19 Icosapent Ethyl [Vascepa] 1 gm PO BID 02/15/19 02/15/19 Insulin Aspart (For Pump) [NovoLOG 0.01 unit SQ-PUMP CONTINUOUS 02/15/19 02/15/19 (For Pump)] Olmesartan/Amlodipin/Hcthiazid 1 each PO DAILY 02/15/19 02/15/19 [Tribenzor 40-10-25 mg Tablet] Pioglitazone HCl 45 mg PO DAILY 02/15/19 02/15/19 metFORMIN HCL 1,000 mg PO BID 02/15/19 02/15/19 ALLERGIES: Allergies Allergy/AdvReac Type Severity Reaction Status Date / Time adhesive tape Allergy Rash/Hives Verified 02/15/19 13:31 SOCIAL HISTORY: Past tobacco use. FAMILY HISTORY: No family history of ulcerative colitis disease or Crohn's disease. Family history of morbid obesity including heart disease and diabetes. No lupus in the family. No reports of stomach or esophageal cancer. REVIEW OF ORGAN SYSTEMS: CONSTITUTIONAL: At height of 6 feet 3.75 inches, his ideal body weight is 199 po unds. He comes in 356 pounds. His body mass index is 43.7. He is 157 pounds overweight. HEENT: Denies any active troubles with hearing. Has troubles with vision. ENDOCRINE: Has diabetes. No hypothyroidism. CARDIOVASCULAR: Past reports of palpitations, heart attacks, and chest pain. RESPIRATORY: Has daytime somnolence. Has obstructive sleep apnea. GASTROINTESTINAL: Denies any bright red blood per rectum. No diarrhea. No constipation. MUSCULOSKELETAL: Has lower back pain and joint pain. Has osteoarthritis of the knees. History of bilateral lower extremity edema. History of chronic wound infection. NEURO: No headaches. No seizure disorders. PSYCH: Has depression. No suicidal ideation. Has anxiety. RHEUMATOLOGIC: No lupus. No rheumatoid arthritis. HEMATOLOGIC: Denies any abnormal bleeding or bruising. Personal history of DVTs. SKIN: No skin cancer. MRSA of the foot. PHYSICAL EXAM: VITAL SIGNS: Height 6 foot 3.75 inches, weight 356 pounds. BMI 43.7 GENERAL: Well-developed in no acute distress. HEENT: No scleral icterus. Extraocular movements grossly intact. Hears conversational speech. No nasal drainage. NECK: Supple without lymphadenopathy. CHEST: Nonlabored respirations with equal bilateral excursions. CARDIOVASCULAR: Regular rate and regular rhythm. Distal 2+ pulses. ABDOMEN: Obese, soft, nontender, nondistended. MUSCULOSKELETAL: No clubbing, cyanosis. Venous stasis disease lower extremities. Partial amputation of both feet. Has foot boots. Wheel chair bound. NEURO: No focal or lateralizing signs. Cranial nerves 2 through 12 grossly within normal limits. PSYCH: Appropriate affect. Alert and oriented to person, place and time. SKIN: Good skin turgor. Well perfused. ASSESSMENT: 1. Morbid obesity due to excess calories 2. Body mass index of 43.7, initial 3. Diabetes type 2, insulin dependent 4. Diabetic neuropathy 5. Deep venous thrombosis leg 6. Gastroesophageal reflux disease 7. Hypertensive heart disease 8. Ischemic cardiomyopathy 9. Chronic right foot wound 10. MRSA infection 11. Anxiety 12. Depressive disorder 13. Seasonal allergies 14. Hyperlipidemia 15. Obstructive sleep apnea. 16. Gastroparesis PLAN: 1. Bariatric options between a sleeve, band and a Silke-en-Y gastric bypass were reviewed in detail. The patient elected for a gastric bypass. Robotic assisted approach described. 2. The [place] [facility] Data was also reviewed with benefits and risks as described. 3. An 8 page second-generation bariatric consent form was reviewed in detail including potential of bleeding, infection, leaks, adequate weight loss, nutritional deficiencies which the patient demonstrated understanding of the risks. 4. A 2 week high-protein low caloric 800 kcal diet described to address hepatomegaly. 5. Preoperative labs including complete metabolic panel and CBC with type and screen recommended. 6. DVT prophylaxis per [place] bariat[facility] surgery collaborative. 7. Antibiotic prophylaxis. 8. Inpatient hospitalization anticipated for more than 2 nights. 9. All questions and concerns were addressed with the patient. Past Medical History Past Medical History: CVA/TIA, Diabetes Mellitus, Deep Vein Thrombosis (DVT), GERD/Reflux, Hypertension, Neurologic Disorder, Sleep Apnea/CPAP/BIPAP Additional Past Medical History / Comment(s): STATES OPEN WOULD ON LEFT FOOT, STATE DR. WEBER IS AWARE. Neuropathy in all four extremities which has led to removal of all ten of his toes, DVT hx in left leg, DVT right shoulder secondary to PICC, stress test showed "Mini heart attack", 02/15/19, states no residual effects, History of Any Multi-Drug Resistant Organisms: MRSA Date of last positivie culture/infection: 2011 MDRO Source:: Left foot Past Surgical History: Orthopedic Surgery Additional Past Surgical History / Comment(s): 12/18/19 EGD. Bilateral feet all digits amputated. Staph infection in left thigh secondary to abcess removed surgically, multiple debridments and skin graft surgeries to bilateral feet, Past Anesthesia/Blood Transfusion Reactions: Previous Problems w/ Anesthesia, Postoperative Nausea & Vomiting (PONV) Additional Past Anesthesia/Blood Transfusion Reaction / Comment(s): had "high fever last surgery 04/2019, [facility]" anesthesia record obtained from then, no mention of temp or malignant hyperthermia. Past Psychological History: Anxiety, Depression Additional Psychological History / Comment(s): Takes prozac, xanax, lyrica, and cymbalta Smoking Status: Former smoker Past Alcohol Use History: Rare Additional Past Alcohol Use History / Comment(s): quit smoking cigarettes in 2003, Past Drug Use History: Marijuana Additional Drug Use History / Comment(s): 02/15/19: Currently uses marijuana. - Past Family History Father Family Medical History: Congestive Heart Failure (CHF), CVA/TIA Additional Family Medical History / Comment(s): at age 79 Mother Family Medical History: Cancer, COPD Additional Family Medical History / Comment(s): leukemia, at age 80 Medications and Allergies Home Medications Medication Instructions Recorded Confirmed Type Aspirin [Adult Low Dose Aspirin EC] 81 mg PO DAILY 05/28/16 12/28/19 History Atorvastatin Calcium [Lipitor] 10 mg PO HS 05/28/16 12/28/19 History FLUoxetine HCL [PROzac] 20 mg PO QAM 05/28/16 12/28/19 History Pregabalin [Lyrica] 150 mg PO BID 05/28/16 12/28/19 History DULoxetine HCL [Cymbalta] 60 mg PO HS 06/29/16 12/28/19 History Omeprazole [[facility]SEC] [facility]/29[facility] 12/28/19 History Multivitamin [Children's 1 tab PO DAILY 07/22/16 12/28/19 History Multivitamins] ALPRAZolam [Xanax] 1 mg PO BID PRN 02/15/19 12/28/19 History Exenatide Microspheres [Bydureon 2 mg SQ SEARS 02/15/19 12/28/19 History Pen] Fenofibrate [Lofibra] 200 mg PO QAM 02/15/19 12/28/19 History Fluticasone Nasal [place] [Flonase 1 spray EA NOSTRIL BID PRN 02/15/19 12/28/19 History Nasal [place]] Glimepiride [Amaryl] 8 mg PO [facility] 02/15/19 12/28/19 History Icosapent Ethyl [Vascepa] 2 gm PO BID 02/15/19 12/28/19 History Insulin Aspart (For Pump) [NovoLOG 0.01 unit SQ-PUMP CONTINUOUS 02/15/19 12/28/19 History (For Pump)] Olmesartan/Amlodipin/Hcthiazid 1 each PO QAM 02/15/19 12/28/19 History [Tribenzor 40-10-25 mg Tablet] Pioglitazone HCl 45 mg PO QAM 02/15/19 12/28/19 History metFORMIN HCL 1,000 mg PO BID 02/15/19 12/28/19 History Cholecalciferol [Vitamin D3 (25 5,000 unit PO BID 11/16/19 12/28/19 History Mcg = 1000 Iu)] Ferrous Sulfate [Feosol] 325 mg PO DAILY 11/16/19 12/28/19 History Carvedilol 50 mg PO BID 12/28/19 12/28/19 History Collagenase [Santyl] 1 applic TOPICAL DAILY 12/28/19 12/28/19 History Allergies Allergy/AdvReac Type Severity Reaction Status Date / Time adhesive tape Allergy Rash/Hives Verified 12/28/19 12:43 Surgical - Exam Vital Signs Temp Pulse Resp BP Pulse Ox 97.5 F L 95 18 106/55 95 01/01/20 06:14 01/01/20 06:14 01/01/20 06:14 01/01/20 06:14 01/01/20 06:14 Results - Labs Abnormal Lab Results - Last 24 Hours (Table) 01/01/20 Range/Units 06:22 POC Glucose (mg/dL) 100 H (75-99) mg/dL
[2020-01-01] MEDS ORDERED: VECURONIUM 10 MG VIAL IV ONE (07:38)
[2020-01-01] MEDS ORDERED: KETAMINE 10 MG/ML 20 ML VIAL ONE (07:38)
[2020-01-01] MEDS ORDERED: MIDAZOLAM 2 MG/2 ML VIAL ONE (07:38)
[2020-01-01] MEDS ORDERED: PHENYLEPHRINE-0.9% NACL SYG 1 MG/10 ML SYRINGE ONE (07:38)
[2020-01-01] MEDS ORDERED: GLYCOPYRROLATE 0.2 MG/ML 2 ML VIAL ONE (07:38)
[2020-01-01] MEDS ORDERED: ePHEDrine SULFATE/0.9% NACL/PF 50 MG/5 ML SYRINGE IV ONE (07:38)
[2020-01-01] MEDS ORDERED: fentaNYL (PF) 50 MCG/ML 2 ML AMP ONE (07:38)
[2020-01-01] MEDS ORDERED: NEOSTIGMINE 1 MG/ML 10 ML VIAL ONE (07:38)
[2020-01-01] MEDS ORDERED: PROPOFOL 10 MG/ML 20 ML VIAL IV ONE (07:38)
[2020-01-01] MEDS ORDERED: SUCCINYLCHOLINE CHLORIDE VIAL 200 MG/10 ML VIAL IV ONE (07:38)
[2020-01-01] MEDS ORDERED: LIDOCAINE 1% INJ 10MG/ML (20 ML MDV) ONE (07:38)
[2020-01-01] MEDS ORDERED: LIDOCAINE 1%-EPI 1:100,000 20 ML VIAL SQ ONE (08:32)
[2020-01-01 11:41] LABS: Glucose,Whole Blood 184 mg/dL (75-99)
[2020-01-01] MEDS ORDERED: HYDROmorphone 1 MG/ML 1 ML SYRINGE IVP PRN (12:03)
[2020-01-01] MEDS ORDERED: diphenhydrAMINE 50 MG/ML 1 ML VIAL IVP PRN (12:03)
[2020-01-01] MEDS ORDERED: NALOXONE 0.4 MG/ML 1 ML VIAL IV PRN (12:03)
[2020-01-01] MEDS ORDERED: FLUTICASONE 50MCG/SPRAY NASAL 16GM EA NOSTRIL PRN (12:06)
--- NOTE | 2020-01-01 12:24 | P.OP ---
Date of Procedure: 01/01/20 Description of Procedure: SURGEON: LUDA WEBER MD PREOPERATIVE DIAGNOSES: 1. Morbid obesity due to excess calories 2. Body mass index of 43.7, initial 3. Diabetes type 2, insulin dependent 4. Diabetic neuropathy 5. Deep venous thrombosis leg 6. Gastroesophageal reflux disease 7. Hypertensive heart disease 8. Ischemic cardiomyopathy 9. Chronic right foot wound 10. MRSA infection 11. Anxiety 12. Depressive disorder 13. Seasonal allergies 14. Hyperlipidemia 15. Obstructive sleep apnea. 16. Gastroparesis POSTOPERATIVE DIAGNOSES: 1. Morbid obesity due to excess calories 2. Body mass index of 43.7, initial 3. Diabetes type 2, insulin dependent 4. Diabetic neuropathy 5. Deep venous thrombosis leg 6. Gastroesophageal reflux disease 7. Hypertensive heart disease 8. Ischemic cardiomyopathy 9. Chronic right foot wound 10. MRSA infection 11. Anxiety 12. Depressive disorder 13. Seasonal allergies 14. Hyperlipidemia 15. Obstructive sleep apnea. 16. Gastroparesis OPERATION: 1. Robotic assisted da Venkata Xi laparoscopic William-en-Y gastric bypass, 100 cm antecolic antegastric William limb, with 25 mm EEA. 2. Intraoperative esophagogastrojejunoscopy. ANESTHESIA: GETA and local ESTIMATED BLOOD LOSS: 5 mL SPECIMENS REMOVED: None. COMPLICATIONS: NONE. INDICATIONS: Yunier Luciano is a 49-year-old male who comes with lifelong morbid obesity. He comes in with multiple wound debridements of his foot where he has diabetic foot ulcers. He has partial foot amputations. His blood sugars are now improved with hemoglobin A1c from 9 to less than 7 and he is seeing an master technician. He is looking into the gastric bypass for weight loss. As a result of his morbid obesity, he comes in with multiple complications from his morbid obesity including insulin dependent diabetes type 2, obstructive sleep apnea, coronary artery disease, and multiple DVTs. At height of 6 feet 3.75 inches, his ideal body weight is 199 pounds. His weight was 356 pounds. His body mass index is 43.7. He is 157 pounds overweight. DESCRIPTION: The patient was brought into the operating room theater. He was placed supine. He had received Lovenox subcutaneously for DVT prophylaxis. Additionally he Peridex oral solution as an oral decontaminant was placed per anesthesia. After general induction, the abdomen was prepped and draped in standard sterile fashion. Ioban draping was placed along the abdomen. A robotic da Venkata Xi system was prepped and primed. The xiphoid to umbilicus was measured of 21 cm. Incisions were proposed at 15 cm from the xiphoid. Proposed port sites were marked with indelible marker along the anterior axillary line bilaterally, mid clavicular line bilaterally with each port marked 10 cm from each other. The robotic stapler port was marked for the right midclavicular line including along the left midclavicular line. A protuberance along the mid abdomen at the epigastrium was identified suspicious for ventral hernia. As a result, a 5 mm 0 laparoscopic trocar entry was performed along the left upper quadrant. The abdomen was insufflated to 15 mmHg pressure, which he tolerated well. Diagnostic laparoscopy demonstrated no injury to bowel, viscera, or mesentery. The liver was large consistent with hepatomegaly and fatty liver disease. Diagnostic laparoscopy confirmed a moderately dilated stomach. No hernias were identified. I went to the head of the bed to suction the entire stomach and deflate the stomach. The 5 mm trocar remained intact. An 8 mm camera port was placed left lateral to the umbilicus at the epigastrium, 15 cm distal to the xiphoid. Next, 12-mm robot stapler port was placed along the right mid abdomen. An 12 mm port was placed along the left upper quadrant. An 8 mm port was placed on the left lateral abdominal wall under direct visualization Please note that the ports were placed 18 to 20 cm away from the target anatomy of the stomach. Care was taken to check that each robotic arm was safely away from collision with the bed or the patient. At the epigastrium, a medium sized Zev liver retractor was placed under direct visualization with the Iron Pouncing Lathe Operator placed under the right shoulder of the patient. The patient was repositioned in reverse Trendelenburg position at 20-degrees af ter lowering the bed. The robot was docked over the patient. Using grasper for arm 3, a grasper for arm 1, including vessel sealer for arm 4, the robotic system was docked and primed as described. Instruments were interchanged by the drilling assistant including endoscissors, the needle bulk driver, and stapler. I had sat at the console. Next, the transverse mesocolon was reflected into the upper abdomen after dividing the mesentery and preparing for the jejunojejunostomy portion of the case. The ligament of Treitz was identified and measured 60 cm antegrade and marked using 3-0 Silk. The jejunum was divided at the 60 cm point using 60-mm blue loads above the suture measurement. The biliopancreatic limb was held in place. The William limb was measured 100 cm in an antegrade fashion to avoid tension along the proposed gastrojejunal anastomosis. At 100 cm along the anti-mesenteric border of the William limb, a jejunojejunostomy was proposed whereby enterotomies were created along the biliopancreatic limb including the William limb using a Bovie cautery. A stay suture of 3-0 Slik was placed to align and create the anastomosis. The enterotomies along the anti-mesenteric borders were created followed by unidirectional fire from the patient's right side using 60 mm blue load Smart technology robotic stapler. The jejunojejunostomy was found to be hemostatic. The enterotomy was closed after horizontal mattress stitch of 3-0 silk used to elevate the enterotomy followed by closure with the robotic stapler blue load. The jejunal limb was temporarily tacked along the left upper quadrant. Attention was now brought to the creation of the gastrojejunostomy. Along the lesser curvature of the stomach between the second and third veins, dissection was made along the retrogastric space to allow first firing of the robotic staple. Blue loads of 60 mm staplers were used to divide the stomach to create the gastric pouch. The patient was then prepared for placement of a Orvil. The patient was Mallampati 2. A 25-mm Orvil was selected for placement by the nurse glass vial filler. The Orvil tubing was placed posterior to the staple line of the gastric pouch and brought out through the left inferior lateral port. I re-scrubbed into the case. The robotic arms were temporarily undocked. The Orvil was then carefully and successfully navigated with the help of the nurse glass vial filler into the gastric pouch. The sutures were identified and divided. The tubing was from the 25 mm anvil. As the Orvil had been placed, the blind jejunal limb was brought proximally into the upper abdomen. No torsion was found upon the William limb. No tension was identified as the limb was brought along the upper abdomen. The blind jejunal limb was previously opened using endo-scissors with cautery. The 25-mm EEA stapler was brought through the left anterior lateral port site from the left side. The EEA stapler was brought through the open jejunal limb and its needle was deployed at the antimesenteric border where the anvil were mated for approximately 1 minute upon firing. The stapler was removed after irrigating the shaft of the instrument with warm normal saline. Donuts were found to be intact and on both sides. The da Venkata Xi robot arms were then re-docked. I sat at the console. The open jejunal limb defect was closed using 60 mm blue loads after releasing any tension from the blind jejunal limb. Care was taken to avoid any long blind limb to avoid candycane syndrome. Reinforcement sutures were placed along the gastrojejunal anastomosis and placed along the 9:00 and 3 o'clock position using 3-0 Polysorb. The Engle and jejunojejunostomy mesenteric defects were obliterated by her intra-abdominal fat. I then went to the head of the bed to perform the esophagogastrojejunoscopy and a leak test. An Olympus gastroscope was passed along the posterior oropharynx which was unremarkable for any injury to the vocal cords. The scope was passed down to the proximal portion of the pouch, whereby no active bleeding was encountered. Excellent visualization of the gastrojejunostomy anastomosis, including the William limb was encountered with endoscopic image obtained. The anastomosis was found to be patent. The gastrointestinal tract was desufflated. No evidence of intraoperative leak was encountered as the gastric pouch and anastomosis were submerged under normal saline solution. The robot was then undocked. I then went back to the bedside of the patient, whereby with coordinated effort of the drilling assistant, irrigation was aspirated from the upper abdominal cavity. Tisseel was placed circumferentially over the anastomosis of the gastrojejunostomy. The fascial defect of the EEA stapler was closed using Moo Elam and 0 Vicryl. All instruments and pneumoperitoneum were evacuated from the abdominal cavity. The port correlating with the EEA stapler device was cleansed with normal saline solution and hydrogen peroxide. The rest of incisions were reapproximated using 4-0 Monocryl in an interrupted subcuticular fashion. Local anesthetic was infiltrated along the skin for postop analgesia. Liquid glue was applied to the skin. OptiFoam dressing was placed along the EEA stapler site. At the end of the procedure, needle, sponge and instrument count had been verified correct by the surgical asst. He had tolerated the procedure well and was extubated and taken to the postanesthesia unit in stable condition. Intraoperative findings were described to the patient's family who were very pleased with the level of care. Total console time 96 minutes Operative Findings: 1. Biliopancreatic limb 60 cm 2. Bypass performed using 100 cm william limb secondary to avoid increased tension at 150 cm. 3. Huerta defect and jejunojejunostomy defect obliterated by moderate intra- abdominal fat. 4. Leak test negative with gastrojejunal anastomosis patent and hemostatic. 5. Robotic staplers total of 10 combined 60-mm blue, 60-mm green to gastric pouch 6. Reinforcement sutures were placed along the gastrojejunal anastomosis 7. Fatty liver disease with hepatomegaly
[2020-01-01 14:16] LABS: Glucose,Whole Blood 222 mg/dL (75-99)
[2020-01-01] MEDS ORDERED: SODIUM CHLORIDE 0.9% 1,000 ML IV ONE (14:19)
[2020-01-01] MEDS ORDERED: INSULIN ASPART (NovoLOG) 100 UNIT/ML VIAL SQ ONE (14:27)
[2020-01-01] MEDS ORDERED: ceFAZolin 3 GM in SODIUM CHLORIDE 0.9% 100 ML IVPB SCH (16:00)
[2020-01-01] MEDS: LACTATED RINGERS 1,000 ML IV SCH (16:10)
[2020-01-01] MEDS: ALBUTEROL NEBULIZED 2.5 MG/3 ML INHALATION SCH ×2 (16:40→20:06)
[2020-01-01] MEDS: CARVEDILOL 12.5 MG TAB PO SCH (17:41)
[2020-01-01] MEDS: 0.9% NACL WITH KCL 20 MEQ/L 1,000 ML IV SCH ×2 (17:43→19:39)
[2020-01-01 18:02] LABS: Glucose,Whole Blood 203 mg/dL (75-99)
[2020-01-01] MEDS: INSULIN ASPART (NovoLOG) 100 UNIT/ML VIAL SQ SCH (18:18)
[2020-01-01] MEDS: ACETAMINOPHEN IV (For NPO) 1,000 MG in EMPTY BAG 1 BAG IVPB SCH (18:18)
[2020-01-01] MEDS: HYOSCYAMINE ORAL DROPS 1.875 MG/15 ML BOTTLE PO SCH (18:20)
[2020-01-01] MEDS: SIMETHICONE 40 MG/0.6 ML DROPS 2,000 MG/30 ML BOTTLE PO SCH (18:20)
[2020-01-01] MEDS: ONDANSETRON 4 MG/2 ML VIAL IVP SCH (18:20)
[2020-01-01] MEDS: PREGABALIN 75 MG CAP PO SCH (20:50)
[2020-01-01 23:58] LABS: Glucose,Whole Blood 166 mg/dL (75-99)
[2020-01-02] MEDS: INSULIN ASPART (NovoLOG) 100 UNIT/ML VIAL SQ SCH ×3 (00:24→12:02)
[2020-01-02] MEDS: SIMETHICONE 40 MG/0.6 ML DROPS 2,000 MG/30 ML BOTTLE PO SCH ×3 (00:25→11:24)
[2020-01-02] MEDS: HYOSCYAMINE ORAL DROPS 1.875 MG/15 ML BOTTLE PO SCH ×3 (00:25→11:23)
[2020-01-02] MEDS: ONDANSETRON 4 MG/2 ML VIAL IVP SCH ×3 (00:25→11:24)
[2020-01-02] MEDS: ACETAMINOPHEN IV (For NPO) 1,000 MG in EMPTY BAG 1 BAG IVPB SCH ×3 (01:16→12:02)
[2020-01-02] MEDS: 0.9% NACL WITH KCL 20 MEQ/L 1,000 ML IV SCH (01:28)
[2020-01-02] MEDS: LACTATED RINGERS 1,000 ML IV SCH (05:06)
[2020-01-02 05:58] LABS: Glucose,Whole Blood 137 mg/dL (75-99)
[2020-01-02] MEDS ORDERED: ENOXAPARIN 40 MG/0.4 ML SYRINGE SQ SCH ×2 (06:00→09:00)
[2020-01-02 07:43] LABS: Basophils % (A) 0 %; Eosinophils % (A) 0 %; HCT 32.7 % (39.0-53.0); HGB 10.9 gm/dL (13.0-17.5); Lymphocytes # (A) 0.7 k/uL (1.0-4.8); Lymphocytes % (A) 10 %; MCH 31.4 pg (25.0-35.0); MCHC 33.4 g/dL (31.0-37.0); Monocytes # (A) 0.6 k/uL (0-1.0); Monocytes % (A) 7 %; Neutrophils # (A) 6.3 k/uL (1.3-7.7); Neutrophils % (A) 80 %; Platelet Count 181 k/uL (150-450); RBC 3.48 m/uL (4.30-5.90); RDW 13.3 % (11.5-15.5); WBC 7.8 k/uL (3.8-10.6)
[2020-01-02 07:52] LABS: Calcium 8.5 mg/dL (8.4-10.2); Magnesium 1.9 mg/dL (1.6-2.3); Phosphorus 3.5 mg/dL (2.5-4.5)
[2020-01-02] MEDS ORDERED: 1: MVI, ADULT NO.4 WITH VIT K 10 ML, THIAMINE 100 MG, FOLIC ACID 1 MG, POTASSIUM CHLORID IV SCH ×6 (08:00)
[2020-01-02] MEDS: ALBUTEROL NEBULIZED 2.5 MG/3 ML INHALATION SCH ×2 (08:01→12:12)
[2020-01-02] MEDS: PREGABALIN 75 MG CAP PO SCH (08:43)
[2020-01-02] MEDS: CARVEDILOL 12.5 MG TAB PO SCH (08:44)
[2020-01-02] MEDS ORDERED: COLLAGENASE 250 UNIT/GM OINTMENT 30 GM TUBE TOPICAL SCH (09:00)
[2020-01-02] MEDS ORDERED: LOSARTAN 50 MG TAB PO SCH (09:00)
[2020-01-02] MEDS ORDERED: amLODIPine 10 MG TAB PO SCH (09:00)
[2020-01-02] MEDS ORDERED: PANTOPRAZOLE 40 MG/10 ML VIAL IV SCH (09:00)
[2020-01-02] MEDS ORDERED: HYDROCHLOROTHIAZIDE 25 MG TAB PO SCH (09:00)
[2020-01-02 11:48] VITALS: BMI 41.7
[2020-01-02] MEDS ORDERED: SODIUM CHLORIDE 0.9% 2,000 ML IV STA (11:48)
[2020-01-02 12:00] LABS: Glucose,Whole Blood 149 mg/dL (75-99)
[2020-01-02] MEDS ORDERED: SODIUM FERRIC GLUCONAT-SUCROSE 125 MG in SODIUM CHLORIDE 0.9% 100 ML IVPB ONE (12:00)
--- NOTE | 2020-01-02 12:28 | P.DS ---
<Vi Palma - Last Filed: 01/02/20 12:26> Providers Expected date of discharge: 01/02/20 Hospital Course: 49-year-old male who underwent robotic-assisted laparoscopic Silke-en-Y gastric bypass with Dr. Kolb. Patient is doing well postoperatively without any immediate complications. He is tolerating clear liquid diet without nausea or vomiting. Patient is controlled on oral medications. Vital signs stable. Patient is stable for discharge home today. Please see EMR for further hospital course details. Discharge Diagnosis: 1. Morbid obesity due to excess calories 2. Body mass index of 43.7, initial 3. Diabetes type 2, insulin dependent 4. Diabetic neuropathy 5. Deep venous thrombosis leg 6. Gastroesophageal reflux disease 7. Hypertensive heart disease 8. Ischemic cardiomyopathy 9. Chronic right foot wound 10. MRSA infection 11. Anxiety 12. Depressive disorder 13. Seasonal allergies 14. Hyperlipidemia 15. Obstructive sleep apnea. 16. Gastroparesis Nurse practitioner note has been reviewed by physician. Signing provider agrees with the documented findings, assessment, and plan of care. Patient Condition at Discharge: Good Plan - Discharge Summary Discharge Rx Participant: Yes New Discharge Prescriptions: New Bisacodyl [Dulcolax] 5 mg PO DAILY PRN #10 tablet. PRN Reason: Constipation Simethicone 40 mg/0.6 ml Drops [Mylicon Drops] 40 mg PO PCHS PRN #30 ml PRN Reason: Gas Omeprazole [PriLOSEC] 40 mg PO DAILY #30 capsule. Ondansetron Odt [Zofran Odt] 4 mg PO Q8HR PRN #9 tab PRN Reason: Nausea Acetaminophen Oral Susp [Tylenol] 650 mg PO Q4H PRN #500 ml PRN Reason: Pain Continue Pregabalin [Lyrica] 150 mg PO BID FLUoxetine HCL [PROzac] 20 mg PO QAM DULoxetine HCL [Cymbalta] 60 mg PO HS Fluticasone Nasal [place] [Flonase Nasal [place]] 1 spray EA NOSTRIL BID PRN PRN Reason: Nasal Congestion Olmesartan/Amlodipin/Hcthiazid [Tribenzor 40-10-25 mg Tablet] 1 each PO QAM Exenatide Microspheres [Bydureon Pen] 2 mg SQ SEARS Insulin Aspart (For Pump) [NovoLOG (For Pump)] 0.01 unit SQ-PUMP CONTINUOUS ALPRAZolam [Xanax] 1 mg PO BID PRN PRN Reason: Anxiety Carvedilol 50 mg PO BID Collagenase [Santyl] 1 applic TOPICAL DAILY Discontinued Atorvastatin Calcium [Lipitor] 10 mg PO HS Aspirin [Adult Low Dose Aspirin EC] 81 mg PO DAILY Omeprazole [PriLOSEC] 20 mg PO AC-BRKFST Multivitamin [Children's Multivitamins] 1 tab PO DAILY Icosapent Ethyl [Vascepa] 2 gm PO BID Pioglitazone HCl 45 mg PO QAM Fenofibrate [Lofibra] 200 mg PO QAM metFORMIN HCL 1,000 mg PO BID Glimepiride [Amaryl] 8 mg PO AC-BRKFST Ferrous Sulfate [Feosol] 325 mg PO DAILY Cholecalciferol [Vitamin D3 (25 Mcg = 1000 Iu)] 5,000 unit PO BID Discharge Medication List FLUoxetine HCL [PROzac] 20 mg PO QAM 05/28/16 [History] Pregabalin [Lyrica] 150 mg PO BID 05/28/16 [History] DULoxetine HCL [Cymbalta] 60 mg PO HS 06/29/16 [History] ALPRAZolam [Xanax] 1 mg PO BID PRN 02/15/19 [History] Exenatide Microspheres [Bydureon Pen] 2 mg SQ SEARS 02/15/19 [History] Fluticasone Nasal [place] [Flonase Nasal [place]] 1 spray EA NOSTRIL BID PRN 02/15/19 [History] Insulin Aspart (For Pump) [NovoLOG (For Pump)] 0.01 unit SQ-PUMP CONTINUOUS 02/15/19 [History] Olmesartan/Amlodipin/Hcthiazid [Tribenzor 40-10-25 mg Tablet] 1 each PO QAM 02/15/19 [History] Carvedilol 50 mg PO BID 12/28/19 [History] Collagenase [Santyl] 1 applic TOPICAL DAILY 12/28/19 [History] Acetaminophen Oral Susp [Tylenol] 650 mg PO Q4H PRN #500 ml 01/02/20 [Rx] Bisacodyl [Dulcolax] 5 mg PO DAILY PRN #10 tablet. 01/02/20 [Rx] Omeprazole [PriLOSEC] 40 mg PO DAILY #30 capsule. 01/02/20 [Rx] Ondansetron Odt [Zofran Odt] 4 mg PO Q8HR PRN #9 tab 01/02/20 [Rx] Simethicone 40 mg/0.6 ml Drops [Mylicon Drops] 40 mg PO PCHS PRN #30 ml 01/02/20 [Rx] Follow up Appointment(s)/Referral(s): Elizabeth Kolb MD [STAFF PHYSICIAN] - [facility] - As Needed Patient Instructions/Handouts: Silke-en-Y Gastric Bypass (DC) Activity/Diet/Wound Care/Special Instructions: Your follow up with take place via phone over the next few days No lifting over 4 pounds You may shower. No soaking or tub baths Very light activity until you are reevaluated at your follow up appointment with your surgeon Continue diet per bariatric center schedule No straws or carbonated beverages Avoid beverages with greater than 6 g of sugar to avoid dumping syndrome Open or crush all medications greater than the size of a tic tac Telephone Dr Kolb office or Bariatric Center if any concerns Discharge Disposition: HOME SELF-CARE <Elizabeth Kolb - Last Filed: 01/03/20 14:02> Providers Date of admission: 01/01/20 05:34 Attending physician: Elizabeth Kolb Primary care physician: [facility] Course: Patient looking remarkably well following surgery. Patient had been deemed higher risk through preoperative assessment. Medication reconciliation performed including discontinuing long-acting diabetic medications to decrease risk for hypoglycemia. Patient reports having multiple hypoglycemic events prior to surgery. Additionally patient to continue with blood pressure medications. Patient stable for discharge. Telephone follow-ups will be performed by bariatric center.
[2020-01-02 16:01] VITALS: BP 142/73; PULSE 80; RESP 16; TEMP 97.7
[2020-01-03] MEDS ORDERED: BISACODYL 5 MG TABLET.DR PO PRN (08:00)
== END 2020-01-02 16:05 | disposition home or self-care (01) | DRG 621 ==
LOC: 2ORMAIN 05:34 → 4SSUR 14:13
PROVIDERS: ADMIT Surgery Plastic and Reconstructive Surgery; ATTEND Surgery Plastic and Reconstructive Surgery
PROC: 8E0W4CZ Robotic Assisted Procedure of Trunk Region, Percutaneous Endoscopic Approach (ICD-10-PCS; principal; 2020-01-01 07:30)
PROC: 0D164ZA Bypass Stomach to Jejunum, Percutaneous Endoscopic Approach (ICD-10-PCS; principal; 2020-01-01 07:30)
PROC: 0DJ08ZZ Inspection of Upper Intestinal Tract, Via Natural or Artificial Opening Endoscopic (ICD-10-PCS; principal; 2020-01-01 07:30)
DX: E66.01 Morbid (severe) obesity due to excess calories (principal); Z68.41 Body mass index [BMI] 40.0-44.9, adult; T81.89XA Other complications of procedures, not elsewhere classified, initial encounter; E11.621 Type 2 diabetes mellitus with foot ulcer; I11.9 Hypertensive heart disease without heart failure; E11.43 Type 2 diabetes mellitus with diabetic autonomic (poly)neuropathy; K76.0 Fatty (change of) liver, not elsewhere classified; I25.5 Ischemic cardiomyopathy; G47.33 Obstructive sleep apnea (adult) (pediatric); F32.9 Major depressive disorder, single episode, unspecified; F41.9 Anxiety disorder, unspecified; K31.84 Gastroparesis; E78.5 Hyperlipidemia, unspecified; I25.2 Old myocardial infarction; J30.2 Other seasonal allergic rhinitis; I25.10 Atherosclerotic heart disease of native coronary artery without angina pectoris; K21.9 Gastro-esophageal reflux disease without esophagitis; Z89.422 Acquired absence of other left toe(s); Z89.421 Acquired absence of other right toe(s); Z79.82 Long term (current) use of aspirin; Z79.4 Long term (current) use of insulin; Z79.899 Other long term (current) drug therapy; Z96.41 Presence of insulin pump (external) (internal); Z71.3 Dietary counseling and surveillance; Z86.14 Personal history of Methicillin resistant Staphylococcus aureus infection; Z86.718 Personal history of other venous thrombosis and embolism; Z91.048 Other nonmedicinal substance allergy status; Z87.891 Personal history of nicotine dependence; Z86.73 Personal history of transient ischemic attack (TIA), and cerebral infarction without residual deficits; Z99.3 Dependence on wheelchair; Z83.49 Family history of other endocrine, nutritional and metabolic diseases; Z82.49 Family history of ischemic heart disease and other diseases of the circulatory system; Z83.3 Family history of diabetes mellitus; Z80.6 Family history of leukemia; Z82.5 Family history of asthma and other chronic lower respiratory diseases
CPT/HCPCS: 80051; 82310; 82565; 83735; 84100; 84520; 85025; 86850; 86900; 86901; 94640; 94760; 94762

== ENCOUNTER → 2020-01-10 | Outpatient (CLI) | payer MEDICARE, OTHER ==
[2020-01-10 13:52] VITALS: BP 113/71; PULSE 88; RESP 16; TEMP 97.8; BMI 40.6
--- NOTE | 2020-01-10 14:04 | P.PN ---
Subjective Progress Note Date: 01/10/20 Patient seen and evaluated. He is doing very well. Protein intake is over 75 g daily. Blood sugar glucose is 150s. Her reports dizziness with standing up. Medical reconciliation performed with decreasing blood pressure medication from 225 pills twice a day to 125 pills twice a day. Dietary changes to stage III on January 15. Patient to follow up 1 month postop. He is doing extremely well. He is off all oral hypoglycemics. All questions addressed. Objective - Vital Signs Vital signs: Vital Signs Temp 97.8 F 01/10/20 13:50 Pulse 88 01/10/20 13:50 Resp 16 01/10/20 13:50 BP 113/71 01/10/20 13:50 Pulse Ox Intake & Output 01/09/20 01/10/20 01/10/20 18:59 06:59 18:59 Weight 148.325 kg
== END | disposition home or self-care (01) ==
LOC: BARWHC3 13:40
PROVIDERS: ATTEND Surgery Plastic and Reconstructive Surgery
DX: E66.01 Morbid (severe) obesity due to excess calories (principal); E11.65 Type 2 diabetes mellitus with hyperglycemia; R42 Dizziness and giddiness; Z68.41 Body mass index [BMI] 40.0-44.9, adult
CPT/HCPCS: 97803; G0463; 99211

== ENCOUNTER → 2020-01-24 | Outpatient (CLI) | payer MEDICARE, OTHER ==
[2020-01-24 20:55] LABS: Hemoglobin A1C 5.6 % (4.0-6.0)
== END | disposition home or self-care (01) ==
LOC: LABWHC1 10:57
PROVIDERS: ATTEND Thoracic Surgery (Cardiothoracic Vascular Surgery)
DX: E08.621 Diabetes mellitus due to underlying condition with foot ulcer (principal); L97.522 Non-pressure chronic ulcer of other part of left foot with fat layer exposed; Z89.432 Acquired absence of left foot; Z89.431 Acquired absence of right foot
CPT/HCPCS: 36415; 83036; 84134

== ENCOUNTER → 2020-01-31 | Outpatient (CLI) | payer MEDICARE, OTHER ==
[2020-01-31 12:01] VITALS: BMI 38.7
[2020-01-31 12:24] VITALS: BP 105/67; PULSE 87; TEMP 97.6
[2020-01-31 12:35] LABS: HCT 36.2 % (39.0-53.0); MCH 30.6 pg (25.0-35.0); MCHC 33.2 g/dL (31.0-37.0); MCV 92.1 fL (80.0-100.0); Mean Platelet Volume 9.1; Platelet Count 159 k/uL (150-450); RBC 3.93 m/uL (4.30-5.90); RDW 13.7 % (11.5-15.5); WBC 6.9 k/uL (3.8-10.6)
[2020-01-31 12:46] LABS: Partial Thromboplastin Time 25.1 sec (22.0-30.0)
--- NOTE | 2020-01-31 15:14 | P.PN ---
Subjective Progress Note Date: 01/31/20 DATE OF SERVICE: 01/31/2020 CHIEF COMPLAINT: Status post gastric bypass HISTORY OF PRESENT ILLNESS: Yunier Luciano is a 49-year-old male status post gastric bypass, 01/01/20. He is 1 month out. His weight loss is over 40 pounds in 1 month. Blood sugars are well controlled. He reports no problems with abdominal pain otherwise. He reports some trouble with swallowing dry chicken. 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 At height of 6 feet 3.25 inches, his ideal body weight is 199 pounds. Highest weight 370 pounds, BMI 46.0. Today, he comes in 311 pounds from 326 pounds, 3 weeks ago. He has lost 15 pounds in 3 weeks. His body mass index is down to 38.7. Lifetime weight loss 59 pounds. Percent excess weight loss 34 %. He is 112 pounds overweight. PHYSICAL EXAM: VITAL SIGNS: Height 6 foot 3.75 inches, weight 326 pounds. BMI 40.6 Vital Signs Temp 97.6 F 01/31/20 12:21 Pulse 87 01/31/20 12:21 Resp BP 105/67 01/31/20 12:21 Pulse Ox Intake & Output 01/31/20 02/01/20 02/01/20 18:59 06:59 18:59 Weight 141.521 kg GENERAL: Well-developed in no acute distress. HEENT: No scleral icterus. Extraocular movements grossly intact. Hears conversational speech. No nasal drainage. NECK: Supple without lymphadenopathy. CHEST: Nonlabored respirations with equal bilateral excursions. CARDIOVASCULAR: Regular rate and regular rhythm. Distal 2+ pulses. ABDOMEN: Incisions are granulated. No infection. MUSCULOSKELETAL: No clubbing, cyanosis. Has bilateral midfoot amputations. NEURO: No focal or lateralizing signs. Cranial nerves 2 through 12 grossly within normal limits. PSYCH: Appropriate affect. Alert and oriented to person, place and time. SKIN: Good skin turgor. Well perfused. ASSESSMENT: 1. Morbid obesity due to excess calories 2. Body mass index of 46.0 to 38.7 3. Diabetes type 2, insulin dependent 4. Diabetic neuropathy 5. Deep venous thrombosis leg 6. Gastroesophageal reflux disease 7. Hypertensive heart disease 8. Ischemic cardiomyopathy 9. Chronic right foot wound 10. MRSA infection 11. Anxiety 12. Depressive disorder 13. Seasonal allergies 14. Hyperlipidemia 15. Obstructive sleep apnea. 16. Vitamin D deficiency 17. Iron deficiency anemia 18. Gastroparesis 19. Status post gastric bypass 20. Orthostatic hypotension 21. Chronic bilateral PLAN: 1. Recommend bariatric labs 2. Recommend follow-up in 3 months postop. 3. Overall doing well. Objective - Vital Signs Vital signs: Vital Signs Temp 97.6 F 01/31/20 12:21 Pulse 87 01/31/20 12:21 Resp BP 105/67 01/31/20 12:21 Pulse Ox Intake & Output 01/30/20 01/31/20 01/31/20 18:59 06:59 18:59 Weight 141.521 kg - Labs CBC & Chem 7: 01/31/20 12:09 01/31/20 12:09 Labs: Abnormal Lab Results - Last 24 Hours (Table) 01/31/20 Range/Units 12:09 RBC 3.93 L (4.30-5.90) m/uL Hgb 12.0 L (13.0-17.5) gm/dL Hct 36.2 L (39.0-53.0) %
[2020-01-31 18:40] LABS: Ferritin 175.6 ng/mL (22.0-322.0)
[2020-01-31 18:42] LABS: Folate, Serum 9.2 ng/mL
[2020-01-31 20:03] LABS: % Iron Saturation 23.05 (15.00-50.00); African American GFR (CKD) 82.4 (60.0-200.0); Albumin 4.2 g/dL (3.80-4.90); Albumin/Globulin Ratio 1.56 (1.60-3.17); Anion Gap 8.7 mmol/L (4.00-12.00); BUN/Creat Ratio 28.33 Ratio (12.00-20.00); Calcium 9.3 mg/dL (8.7-10.3); Carbon Dioxide 24.3 mmol/L (21.6-31.8); Chol/HDL Ratio 4.97; Globulin 2.7 g/dL (1.6-3.3); LDL Cholesterol,Calculated 79.4 mg/dL (0.0-131.0); Magnesium 1.7 mg/dL (1.5-2.4); Non-African American GFR(CKD) 71.1 (60.0-200.0); Phosphorus 3.5 mg/dL (2.4-5.1); Potassium 4.2 mmol/L (3.5-5.5); Total Bilirubin 0.8 mg/dL (0.3-1.2); Total Protein 6.9 g/dL (6.2-8.2); VLDL Calculation 35.6 mg/dL (5.00-40.00)
[2020-02-01 13:32] LABS: Zinc, Serum 59 ug/dL (60-130)
[2020-02-02 08:27] LABS: Vit B1(Thiamine) 58 ug/L (38-122)
[2020-02-02 12:02] LABS: Vitamin A 69 ug/dL (38-106)
== END | disposition home or self-care (01) ==
LOC: BARWHC3 10:57
PROVIDERS: ATTEND Surgery Plastic and Reconstructive Surgery
DX: Z48.815 Encounter for surgical aftercare following surgery on the digestive system (principal); E66.01 Morbid (severe) obesity due to excess calories; I82.409 Acute embolism and thrombosis of unspecified deep veins of unspecified lower extremity; K21.9 Gastro-esophageal reflux disease without esophagitis; I11.9 Hypertensive heart disease without heart failure; I25.5 Ischemic cardiomyopathy; S91.301A Unspecified open wound, right foot, initial encounter; A49.02 Methicillin resistant Staphylococcus aureus infection, unspecified site; F41.8 Other specified anxiety disorders; J30.2 Other seasonal allergic rhinitis; E78.5 Hyperlipidemia, unspecified; G47.33 Obstructive sleep apnea (adult) (pediatric); E55.9 Vitamin D deficiency, unspecified; D50.9 Iron deficiency anemia, unspecified; E11.43 Type 2 diabetes mellitus with diabetic autonomic (poly)neuropathy; I95.1 Orthostatic hypotension; K31.84 Gastroparesis; Z68.38 Body mass index [BMI] 38.0-38.9, adult; Z98.84 Bariatric surgery status; Z79.4 Long term (current) use of insulin; E21.1 Secondary hyperparathyroidism, not elsewhere classified; K90.9 Intestinal malabsorption, unspecified; K74.1 Hepatic sclerosis; N19 Unspecified kidney failure; K50.90 Crohn's disease, unspecified, without complications
CPT/HCPCS: 84255; 84134; 84425; 80061; 80053; 82607; 82728; 82525; 82746; 83540; 83550; 83735; 84100; 84443; 84590; 84630; 85027; 85610; 85730; 82306; 83970; 97803; 36415; G0463; 99211

== ENCOUNTER → 2020-04-03 | Outpatient (CLI) | payer MEDICARE, OTHER ==
[2020-04-03 13:03] VITALS: BP 115/74; PULSE 75; TEMP 98.1; BMI 40.1
--- NOTE | 2020-04-03 14:04 | P.PN ---
Subjective Progress Note Date: 04/03/20 DATE OF SERVICE: 04/03/2020 CHIEF COMPLAINT: Status post gastric bypass HISTORY OF PRESENT ILLNESS: Yunier Luciano is a 49-year-old male status post gastric bypass, 01/01/20. He is 3 months out. He has lost 70 pounds in 4 months. Hgb A1c now 6.2. He is s/p gastric bypass. No moderate dysphagia. No ga stroesophageal reflux disease. He is going to the wound care center at [facility]. He has chronic wound of the left foot. No abdominal pain. He has completed his labs. He is trying to get under 300 pounds. He denies any low blood sugars and he is adjusting his blood sugar machine/insulin pump. His protein amount intake is under 75 grams daily but should be 90 grams. At height of 6 feet 3.25 inches, his ideal body weight is 199 pounds. Highest weight 370 pounds, BMI 46.0. Today, he comes in 301 pounds from 311 pounds from 326 pounds, 3 months ago. He has lost 10 pounds in 3 months. His body mass index is down to 37.5. Lifetime weight loss 69 pounds. Percent excess weight loss 40 %. He is 102 pounds overweight. PHYSICAL EXAM: VITAL SIGNS: Height 6 foot 3.25 inches, weight 301 pounds. BMI 37.5 Vital Signs Temp 98.1 F 04/03/20 13:02 Pulse 75 04/03/20 13:02 Resp BP 115/74 04/03/20 13:02 Pulse Ox GENERAL: Well-developed in no acute distress. HEENT: No scleral icterus. Extraocular movements grossly intact. Hears conversational speech. No nasal drainage. NECK: Supple without lymphadenopathy. CHEST: Nonlabored respirations with equal bilateral excursions. CARDIOVASCULAR: Regular rate and regular rhythm. Distal 2+ pulses. ABDOMEN: No abdominal wall hernia. No infection. MUSCULOSKELETAL: No clubbing, cyanosis. NEURO: No focal or lateralizing signs. Cranial nerves 2 through 12 grossly within normal limits. PSYCH: Appropriate affect. Alert and oriented to person, place and time. SKIN: Good skin turgor. Well perfused. LABS: Reviewed. AST and ALT elevated. Triglycerides elevated. Zinc is low. Hgb low 12.0 ASSESSMENT: 1. Morbid obesity due to excess calories 2. Body mass index of 46.0 to 37.5 3. Diabetes type 2, insulin dependent 4. Diabetic neuropathy 5. Deep venous thrombosis leg 6. Gastroesophageal reflux disease 7. Hypertensive heart disease 8. Ischemic cardiomyopathy 9. Chronic right foot wound 10. MRSA infection 11. Anxiety 12. Depressive disorder 13. Seasonal allergies 14. Hyperlipidemia 15. Obstructive sleep apnea. 16. Vitamin D deficiency 17. Iron deficiency anemia 18. Gastroparesis 19. Status post gastric bypass 20. Orthostatic hypotension 21. Chronic bilateral PLAN: 1. Recommend bariatric labs, 3 months outt 2. Increase protein intake over 90 grams daily. Objective - Vital Signs Vital signs: Vital Signs Temp 98.1 F 04/03/20 13:02 Pulse 75 04/03/20 13:02 Resp BP 115/74 04/03/20 13:02 Pulse Ox Intake & Output 04/02/20 04/03/20 04/03/20 18:59 06:59 18:59 Weight 136.985 kg - Labs CBC & Chem 7: 04/03/20 14:41 04/03/20 14:41
[2020-04-03 14:58] LABS: HCT 39.1 % (39.0-53.0); HGB 12.4 gm/dL (13.0-17.5); MCH 29.5 pg (25.0-35.0); MCHC 31.8 g/dL (31.0-37.0); Mean Platelet Volume 8.2; Platelet Count 178 k/uL (150-450); RBC 4.21 m/uL (4.30-5.90); RDW 14.6 % (11.5-15.5); WBC 8.6 k/uL (3.8-10.6)
[2020-04-03 15:08] LABS: Partial Thromboplastin Time 25.6 sec (22.0-30.0)
[2020-04-04 00:40] LABS: Ferritin 127.8 ng/mL (22.0-322.0)
[2020-04-04 00:52] LABS: % Iron Saturation 16.13 (15.00-50.00); African American GFR (CKD) 116.6 (60.0-200.0); Albumin 4.1 g/dL (3.80-4.90); Albumin/Globulin Ratio 1.58 (1.60-3.17); Anion Gap 6.4 mmol/L (4.00-12.00); BUN/Creat Ratio 17.78 Ratio (12.00-20.00); Calcium 9.2 mg/dL (8.7-10.3); Carbon Dioxide 32.6 mmol/L (21.6-31.8); Chol/HDL Ratio 5.26; Folate, Serum 17.1 ng/mL; Globulin 2.6 g/dL (1.6-3.3); Magnesium 1.9 mg/dL (1.5-2.4); Non-African American GFR(CKD) 100.6 (60.0-200.0); Phosphorus 3.7 mg/dL (2.4-5.1); Potassium 3.1 mmol/L (3.5-5.5); Total Bilirubin 0.7 mg/dL (0.3-1.2); Total Protein 6.7 g/dL (6.2-8.2)
[2020-04-04 09:25] LABS: Hemoglobin A1C 4.8 % (4.0-6.0)
[2020-04-05 08:11] LABS: Vit B1(Thiamine) 63 ug/L (38-122)
[2020-04-05 08:15] LABS: Vitamin A 38 ug/dL (38-106)
[2020-04-05 11:54] LABS: Zinc, Serum 67 ug/dL (60-130)
[2020-04-06 02:36] LABS: Selenium 117 mcg/L (63-160)
== END | disposition home or self-care (01) ==
LOC: BARWHC3 12:20
PROVIDERS: ATTEND Surgery Plastic and Reconstructive Surgery
DX: E66.01 Morbid (severe) obesity due to excess calories (principal); E11.65 Type 2 diabetes mellitus with hyperglycemia; Z48.815 Encounter for surgical aftercare following surgery on the digestive system; Z98.84 Bariatric surgery status; E11.43 Type 2 diabetes mellitus with diabetic autonomic (poly)neuropathy; K21.9 Gastro-esophageal reflux disease without esophagitis; I11.9 Hypertensive heart disease without heart failure; E55.9 Vitamin D deficiency, unspecified; F32.9 Major depressive disorder, single episode, unspecified; F41.9 Anxiety disorder, unspecified; D50.9 Iron deficiency anemia, unspecified; G47.33 Obstructive sleep apnea (adult) (pediatric); K31.84 Gastroparesis; I25.5 Ischemic cardiomyopathy; I82.409 Acute embolism and thrombosis of unspecified deep veins of unspecified lower extremity; J30.2 Other seasonal allergic rhinitis; I95.1 Orthostatic hypotension; A49.02 Methicillin resistant Staphylococcus aureus infection, unspecified site
CPT/HCPCS: 84255; 84134; 84425; 80061; 80053; 82607; 82728; 82525; 82746; 83540; 83550; 83735; 84100; 84443; 84590; 84630; 85027; 85610; 85730; 82306; 83970; 83036; 97803; 36415; G0463; 99211

== ENCOUNTER → 2020-05-29 | Outpatient (CLI) | payer MEDICARE, OTHER ==
--- NOTE | 2020-05-29 10:58 | US ---
EXAMINATION TYPE: US gallbladder DATE OF EXAM: 05/29/2020 COMPARISON: NONE CLINICAL HISTORY: 49-year-old male R94.5 Abnormal Liver function test. TECHNIQUE: Multiple sonographic images of the right upper quadrant are obtained. FINDINGS: EXAM MEASUREMENTS: Liver Length: 21.9 cm Gallbladder Wall: 0.2 cm CBD: 0.8 cm Right Kidney: 13.9 x 6.0 x 6.2 cm Pancreas: Pancreas body and tail is obscured by overlying bowel gas Liver: Enlarged with slightly coarsened echotexture. No focal lesion seen. Gallbladder: Sludge visualized within. No abnormal distention, wall thickening, or pericholecystic f luid. Evidence for sonographic Diggs's sign: No CBD: Dilated. Right Kidney: No hydronephrosis. IMPRESSION: 1. Prominent gallbladder sludge. No ancillary findings of acute cholecystitis at this time. 2. Bile duct dilated at 8 mm. Correlate with alkaline phosphatase and bilirubin levels to exclude alicia iary obstruction. ERCP or MRCP if clinically indicated. 3. Hepatomegaly at 21.9 cm.
== END | disposition home or self-care (01) ==
LOC: RADUSWWP 08:44
PROVIDERS: ATTEND Surgery Plastic and Reconstructive Surgery
DX: R16.0 Hepatomegaly, not elsewhere classified (principal); K82.8 Other specified diseases of gallbladder; K83.8 Other specified diseases of biliary tract
CPT/HCPCS: 76705

== ENCOUNTER → 2020-06-27 | Outpatient (CLI) | payer MEDICARE, OTHER ==
--- NOTE | 2020-06-27 18:31 | SFUN ---
SLEEP CENTER FOLLOW UP NOTE DATE OF SERVICE: 06/27/2020 This patient is a 49-year-old gentleman who has been followed in Sleep Center for treatment of obstructive sleep apnea-hypopnea syndrome. The patient continues to use his CPAP equipment every night for the whole night. No snoring with the machine. [place] Sleepiness Scale today is 4. I checked his CPAP unit. Range of the pressure is 8 to 10 cm of water. Average pressure 9.2 cm of water. Usage 30/30 nights for more than 4 hours. Average usage 8.3 hours per night. Mask fit 100%. Periodic breathing is 0%. Apnea-hypopnea index reading 2.6 per hour, which is normal range. MEDICATIONS: Carvedilol, Cymbalta, exenatide ER, ferrous sulfate, fluoxetine, fluticasone, insulin pump, regular insulin, omeprazole, olmesartan, amlodipine, hydrochlorothiazide, pregabalin, Xanax, zinc, calcium, vitamin D. PHYSICAL EXAMINATION: GENERAL: A pleasant patient in no distress. VITAL SIGNS: BP 122/71, HR 88, RR 15, height 6 feet 3-1/2 inches, weight 281 pounds, which is about 70 pounds less than during the last visit. Oxygen saturation at room air 96%. Temperature 97.7. HEENT: PERRLA, EOMI. Evaluation of oropharynx showed tongue protrudes midline. Extremely low position of soft palate. Mallampati IV. NECK: Supple. No JVD. Thyroid is not palpable. LUNGS: Clear to percussion and to auscultation. Good air exchange. No wheezing or rhonchi. HEART: S1, S2 regular. No murmurs, gallops or rubs. ABDOMEN: Soft and nontender. Bowel sounds are present. No organomegaly. EXTREMITIES: Status post left toe amputation. REMOTE SENSING RESEARCH SCIENTIST: Awake, alert, and oriented X3. Cranial nerves 2 to 7 intact. There is no fasciculation or atrophy. noted. No focal deficits observed. IMPRESSION: 1. Obstructive sleep apnea-hypopnea syndrome. Patient demonstrated great compliance with treatment, benefitting from treatment. 2. Hypertension. 3. Obesity. 4. Diabetes mellitus. 5. Peripheral neuropathy secondary to diabetes. 6. Status post two amputation on left foot. 7. Hyperlipidemia. 8. Seasonal allergies. 9. History of anxiety. PLAN: 1. Patient will continue to use PAP equipment every night for the whole night. 2. Sleep hygiene with regular time in bed for at least 7-1/2 to 8 hours. 3. Precautions related to driving. No driving if feeling sleepiness. 4. I will maintain all necessary prescription for PAP supplies including mask, tube, filters. 5. Watching weight. 6. No driving if feeling sleepiness. 7. Follow-up visit in 6 months or earlier if patient has any problems. Thank you very much for allowing me to participate in the management of your patient. Sincerely, Herbert Lynn MD, PhD, FAASM Diplomat of [place] [employer] [employer] Teacher of [facility] [place] MMODL / IJN: [id number] /
== END | disposition home or self-care (01) ==
LOC: SLEEP 13:36
PROVIDERS: ATTEND Internal Medicine
DX: G47.33 Obstructive sleep apnea (adult) (pediatric) (principal); I10 Essential (primary) hypertension; E66.9 Obesity, unspecified; E11.9 Type 2 diabetes mellitus without complications; E78.5 Hyperlipidemia, unspecified; E11.42 Type 2 diabetes mellitus with diabetic polyneuropathy; J30.2 Other seasonal allergic rhinitis; Z89.422 Acquired absence of other left toe(s); Z99.89 Dependence on other enabling machines and devices

== ENCOUNTER → 2020-07-24 | Outpatient (CLI) | payer MEDICARE, OTHER ==
[2020-07-24 22:46] LABS: Hemoglobin A1C 4.9 % (4.0-6.0)
[2020-07-25 01:09] LABS: Urine Creatinine 53.6 mg/dL
[2020-07-25 02:52] LABS: African American GFR (CKD) 122.4 (60.0-200.0); Albumin 3.9 g/dL (3.80-4.90); Albumin/Globulin Ratio 1.39 (1.60-3.17); Anion Gap 8.7 mmol/L (4.00-12.00); BUN/Creat Ratio 13.75 Ratio (12.00-20.00); Calcium 9.2 mg/dL (8.7-10.3); Carbon Dioxide 30.3 mmol/L (21.6-31.8); Chol/HDL Ratio 5.39; Globulin 2.8 g/dL (1.6-3.3); Non-African American GFR(CKD) 105.6 (60.0-200.0); Potassium 3.9 mmol/L (3.5-5.5); Total Bilirubin 0.6 mg/dL (0.2-1.2); Total Protein 6.7 g/dL (6.2-8.2)
== END | disposition home or self-care (01) ==
LOC: LABWHC1 09:30
PROVIDERS: ATTEND Internal Medicine Endocrinology, Diabetes & Metabolism
DX: E11.65 Type 2 diabetes mellitus with hyperglycemia (principal)
CPT/HCPCS: 36415; 80053; 80061; 82043; 82570; 83036; 84443

== ENCOUNTER → 2020-09-25 | Outpatient (CLI) | payer MEDICARE, OTHER ==
[2020-09-25 13:12] VITALS: BP 153/89; PULSE 77; RESP 18; TEMP 98.2
--- NOTE | 2020-09-25 14:22 | P.PN ---
Subjective Progress Note Date: 09/25/20 DATE OF SERVICE: 09/25/2020 CHIEF COMPLAINT: Status post gastric bypass HISTORY OF PRESENT ILLNESS: Yunier Luciano is a 49-year-old male status post gastric bypass, 01/01/20. He is 9 months out. He has lost more weight. He is off insulin. He has chronic wound of the left foot. He is being seen in the wound care. He is pending blood work. His blood pressure medications are now reduced. He is taking less of his BP meds. He denies troubles with textured foods. No reports of nausea or vomiting. He denies abdominal pain. No reports of constipation. He presents for management of his gastric bypass. At height of 6 feet 3.25 inches, his ideal body weight is 199 pounds. Highest weight 370 pounds, BMI 47.3. Today, he comes in 267 pounds from 280 pounds, 3 months ago. He has lost 13 pounds in 3 months. His body mass index is down to 33.3. Lifetime weight loss 103 pounds. Lifetime percent excess weight loss is 60 %. He is 68 pounds overweight. PHYSICAL EXAM: VITAL SIGNS: Height 6 foot 3.25 inches, weight 267 pounds. BMI 32.6 Vital Signs Temp 98.2 F 09/25/20 13:07 Pulse 77 09/25/20 13:07 Resp 18 09/25/20 13:07 BP 153/89 09/25/20 13:07 Pulse Ox GENERAL: Well-developed in no acute distress. HEENT: No scleral icterus. Extraocular movements grossly intact. Hears conversational speech. No nasal drainage. NECK: Supple without lymphadenopathy. CHEST: Nonlabored respirations with equal bilateral excursions. CARDIOVASCULAR: Regular rate and regular rhythm. Distal 2+ pulses. ABDOMEN: No abdominal wall hernia. No infection. MUSCULOSKELETAL: No clubbing, cyanosis. as Hfoot amputation partial of the left foot. NEURO: No focal or lateralizing signs. Cranial nerves 2 through 12 grossly within normal limits. PSYCH: Appropriate affect. Alert and oriented to person, place and time. SKIN: Good skin turgor. Well perfused. ASSESSMENT: 1. Morbid obesity due to excess calories 2. Body mass index of 46.0 to 32.6 3. Diabetes type 2, insulin dependent 4. Diabetic neuropathy 5. Deep venous thrombosis leg 6. Gastroesophageal reflux disease 7. Hypertensive heart disease 8. Ischemic cardiomyopathy 9. Chronic right foot wound 10. MRSA infection 11. Anxiety 12. Depressive disorder 13. Seasonal allergies 14. Hyperlipidemia 15. Obstructive sleep apnea. 16. Vitamin D deficiency 17. Iron deficiency anemia 18. Gastroparesis 19. Status post gastric bypass 20. Orthostatic hypotension PLAN: 1. Recommend bariatric labs 2. Follow up in wound care center from chronic wound. Objective - Vital Signs Vital signs: Vital Signs Temp 98.2 F 09/25/20 13:07 Pulse 77 09/25/20 13:07 Resp 18 09/25/20 13:07 BP 153/89 09/25/20 13:07 Pulse Ox Intake & Output 09/24/20 09/25/20 09/25/20 18:59 06:59 18:59 Weight 121.563 kg
[2020-09-25 14:29] VITALS: BMI 32.5
== END | disposition home or self-care (01) ==
LOC: BARWHC3 12:51
PROVIDERS: ATTEND Surgery Plastic and Reconstructive Surgery
DX: E66.01 Morbid (severe) obesity due to excess calories (principal); E11.9 Type 2 diabetes mellitus without complications; E11.43 Type 2 diabetes mellitus with diabetic autonomic (poly)neuropathy; I82.409 Acute embolism and thrombosis of unspecified deep veins of unspecified lower extremity; K21.9 Gastro-esophageal reflux disease without esophagitis; I11.9 Hypertensive heart disease without heart failure; I25.5 Ischemic cardiomyopathy; A49.02 Methicillin resistant Staphylococcus aureus infection, unspecified site; F41.9 Anxiety disorder, unspecified; F32.9 Major depressive disorder, single episode, unspecified; E78.5 Hyperlipidemia, unspecified; G47.33 Obstructive sleep apnea (adult) (pediatric); E55.9 Vitamin D deficiency, unspecified; D50.9 Iron deficiency anemia, unspecified; Z79.4 Long term (current) use of insulin; Z68.32 Body mass index [BMI] 32.0-32.9, adult; J30.2 Other seasonal allergic rhinitis; K31.84 Gastroparesis; I95.1 Orthostatic hypotension
CPT/HCPCS: 97803; G0463; 99211

== ENCOUNTER → 2020-12-11 | Outpatient (CLI) | payer MEDICARE, OTHER ==
[2020-12-11 14:33] LABS: INR 0.96 (0.90-1.11); Partial Thromboplastin Time 29.2 sec (23.5-31.0); Prothrombin Time 10.5 sec (9.9-11.9)
[2020-12-11 18:32] LABS: HGB 13.8 g/dL (13.0-17.0); MCH 32.7 pg (27.0-32.0); MCHC 32.1 g/dL (32.0-37.0); MCV 101.9 fL (80.0-97.0); Mean Platelet Volume 11.4 fL (9.5-12.2); Platelet Count 143 X 10*3/uL (140-440); RBC 4.22 X 10*6/uL (4.40-5.60); RDW 12.7 % (11.5-14.5); WBC 4.18 X 10*3/uL (4.50-10.00)
[2020-12-11 20:38] LABS: % Iron Saturation 34.47 (15.00-50.00); ALT 33 U/L (10-49); AST 32 U/L (14-35); African American GFR (CKD) 115.8 (60.0-200.0); Albumin/Globulin Ratio 1.29 (1.60-3.17); Alkaline Phosphatase 135 U/L (41-126); BUN/Creat Ratio 18.89 Ratio (12.00-20.00); Calcium 9.6 mg/dL (8.7-10.3); Carbon Dioxide 30.2 mmol/L (21.6-31.8); Chloride 106 mmol/L (96-109); Chol/HDL Ratio 4.17; Cholesterol 200 mg/dL (0-200); Globulin 2.8 g/dL (1.6-3.3); Glucose 111 mg/dL (70-110); Iron 101 ug/dL (65-175); LDL Cholesterol,Calculated 120.4 mg/dL (0.0-131.0); Magnesium 1.7 mg/dL (1.5-2.4); Non-African American GFR(CKD) 99.9 (60.0-200.0); Phosphorus 3.4 mg/dL (2.4-5.1); Sodium 143 mmol/L (135-145); Total Bilirubin 0.6 mg/dL (0.3-1.2); Total Iron Binding Capacity 293 ug/dL (228-460); Total Protein 6.4 g/dL (6.2-8.2)
[2020-12-11 20:49] LABS: Ferritin 159.2 ng/mL (22.0-322.0)
[2020-12-11 21:01] LABS: Folate, Serum >24.0 ng/mL
[2020-12-11 21:07] LABS: Hemoglobin A1C 4.6 % (4.0-6.0)
[2020-12-12 15:46] LABS: Zinc, Serum 87 ug/dL (60-130)
== END | disposition home or self-care (01) ==
LOC: LABWHC1 09:18
PROVIDERS: ATTEND Surgery Plastic and Reconstructive Surgery
DX: E89.1 Postprocedural hypoinsulinemia (principal); D50.8 Other iron deficiency anemias; K90.89 Other intestinal malabsorption; E55.9 Vitamin D deficiency, unspecified; K74.1 Hepatic sclerosis; N19 Unspecified kidney failure; K50.90 Crohn's disease, unspecified, without complications
CPT/HCPCS: 36415; 80053; 80061; 82306; 82525; 82607; 82728; 82746; 83036; 83540; 83550; 83735; 83970; 84100; 84134; 84255; 84425; 84443; 84590; 84630; 85027; 85610; 85730

== ENCOUNTER → 2021-01-08 | Outpatient (CLI) | payer MEDICARE, OTHER ==
[2021-01-08 13:32] VITALS: BP 150/91; PULSE 78; RESP 16; TEMP 98.1; BMI 34.4
--- NOTE | 2021-01-08 14:18 | P.PN ---
Subjective Progress Note Date: 01/08/21 He comes in with 10 pound weight gain. He reports almost 100 pounds. He had COVID and had lost taste and smell. Overall, doing well. Completely off insulin. He takes Actos and once per week shot. He reports Dr. Sparks coming off diabetic medications. Recent labs reviewed. Recommend discontinue blood sugar me dications. Follow up in 3 months. He is 1 year out. Objective - Vital Signs Vital signs: Vital Signs Temp 98.1 F 01/08/21 13:30 Pulse 78 01/08/21 13:30 Resp 16 01/08/21 13:30 BP 150/91 01/08/21 13:30 Pulse Ox Intake & Output 01/07/21 01/08/21 01/08/21 18:59 06:59 18:59 Weight 126.099 kg
== END ==
LOC: BARWHC3 12:50
PROVIDERS: ATTEND Surgery Plastic and Reconstructive Surgery
DX: E66.01 Morbid (severe) obesity due to excess calories (principal); Z68.42 Body mass index [BMI] 45.0-49.9, adult
CPT/HCPCS: 97803; G0463; 99211

== ENCOUNTER → 2021-01-22 | Outpatient (CLI) | payer MEDICARE, OTHER ==
--- NOTE | 2021-01-22 15:07 | SFUN ---
SLEEP CENTER FOLLOW UP NOTE DATE OF SERVICE: 01/22/2021 This is a 50-year-old gentleman who has been followed in Sleep Center for treatment of obstructive sleep apnea-hypopnea syndrome. The patient successfully continues to use his CPAP equipment. He continued to lose some weight after bariatric surgery last year and feels better. His blood sugar improved. His medication was changed to only oral medications for blood sugar and possibly to be decreased dose and possibly may be stopped in the future. [place] Sleepiness Scale today is only 2, which is perfect. His wound on his leg is better now. I checked CPAP unit. The patient used it 100% of the time. Average usage 8.1 hours per night. Mask fit 100%. It is an automatic PAP regimen with range of the pressure 8- 10, average pressure 9.4. Apnea-hypopnea index 6.1, which is absolutely normal. MEDICATIONS: Alprazolam 1 mg once a day, carvedilol 25 mg twice a day, duloxetine 60 mg once a day, fluoxetine 20 mg once a day, pioglitazone 45 mg once a day, pregabalin 150 mg 2 tablets a day, omeprazole 40 mg once a day, iron supplement. PHYSICAL EXAMINATION: GENERAL: Patient in no distress. VITAL SIGNS: BP 152/92, HR 91, RR 12, height 6 feet 4 inches, weight 276.4, temperature 97.9 oxygen saturation at room air 96%. HEENT: PERRLA, EOMI. Oropharynx extremely low position of soft palate. Mallampati 4. NECK: Supple, no JVD. Thyroid is not palpable. LUNGS: Clear to percussion and to auscultation. Good air exchange. No wheezing or rhonchi. HEART: S1, S2 regular. No murmurs, gallops, or rubs. ABDOMEN: Soft and nontender. Bowel sounds are present. No organomegaly appreciated. EXTREMITIES: Cover on left foot. CHECK SERVICES CLERK: Awake, alert, and oriented X3. Cranial nerves 2 to 7 intact. There is no fasciculation or atrophy. noted. No focal deficits observed. IMPRESSION: 1. Obstructive sleep apnea-hypopnea syndrome. Patient demonstrated 100% compliance with treatment, benefitting from treatment. 2. Mild obesity, body mass index 33.5. After bariatric surgery, patient lost significant amount of weight about 75 pounds. 3. Hypertension. 4. Diabetes mellitus. Significant improvements after losing weight. 5. History of peripheral neuropathy secondary to diabetes. 6. Status post 2 amputation on the left foot. 7. Hyperlipidemia. 8. Seasonal allergy. 9. History of anxiety. PLAN: 1. Patient will continue to use PAP equipment every night for the whole night. 2. Sleep hygiene with regular time in bed for at least 7-1/2 to 8 hours. 3. Precautions related to driving. No driving if feeling sleepiness. 4. I will maintain all necessary prescription for PAP supplies including mask, tube, filters. 5. Watching weight. 6. Follow-up visit in 6 months or earlier if patient has any problems. Thank you very much for allowing me to participate in management of your patient. Sincerely, Herbert Lynn MD, PhD, FAASM Diplomat of [place] [employer] [employer] [place] [facility] [place] [email or web address] / [id number]: [id number] /
== END ==
LOC: SLEEP 11:07
PROVIDERS: ATTEND Internal Medicine
DX: G47.33 Obstructive sleep apnea (adult) (pediatric) (principal); E66.9 Obesity, unspecified; Z68.33 Body mass index [BMI] 33.0-33.9, adult; I10 Essential (primary) hypertension; E78.5 Hyperlipidemia, unspecified; J30.2 Other seasonal allergic rhinitis; F41.9 Anxiety disorder, unspecified; Z99.89 Dependence on other enabling machines and devices; Z86.69 Personal history of other diseases of the nervous system and sense organs; Z47.81 Encounter for orthopedic aftercare following surgical amputation

== ENCOUNTER → 2021-03-12 | Outpatient (CLI) | payer MEDICARE, OTHER ==
[2021-03-12 19:08] LABS: Hemoglobin A1C 4.4 % (4.0-6.0)
[2021-03-12 22:37] LABS: African American GFR (CKD) 115.8 (60.0-200.0); Albumin 3.9 g/dL (3.80-4.90); Albumin/Globulin Ratio 1.44 (1.60-3.17); BUN/Creat Ratio 23.33 Ratio (12.00-20.00); Calcium 8.7 mg/dL (8.7-10.3); Chol/HDL Ratio 3.91; Globulin 2.7 g/dL (1.6-3.3); Non-African American GFR(CKD) 99.9 (60.0-200.0); Potassium 4.2 mmol/L (3.5-5.5); Total Bilirubin 0.7 mg/dL (0.2-1.2); Total Protein 6.6 g/dL (6.2-8.2)
[2021-03-13 17:51] LABS: Urine Creatinine 67.8 mg/dL
== END ==
LOC: LABWHC1 08:55
PROVIDERS: ATTEND Internal Medicine Endocrinology, Diabetes & Metabolism
DX: E11.65 Type 2 diabetes mellitus with hyperglycemia (principal)
CPT/HCPCS: 36415; 80053; 80061; 82043; 82570; 83036; 84443

== ENCOUNTER → 2021-05-07 | Outpatient (CLI) | payer MEDICARE, OTHER ==
[2021-05-07 13:18] VITALS: BP 136/80; PULSE 78; RESP 18; TEMP 98.2; BMI 34.0
--- NOTE | 2021-05-07 13:33 | P.PN ---
Subjective Progress Note Date: 05/07/21 He has kept his weight down. He reports some very mild dysphagia in the morning and by lunch time. He has a left boot. He is 268 pounds at home. He is off insulin. He is off much of his diabetic medications. He has re-located to live with his sister. He has occasional hypoglycemic events. Objective - Vital Signs Vital signs: Vital Signs Temp 98.2 F 05/07/21 13:14 Pulse 78 05/07/21 13:14 Resp 18 05/07/21 13:14 BP 136/80 05/07/21 13:14 Pulse Ox Intake & Output 05/06/21 05/07/21 05/07/21 18:59 06:59 18:59 Weight 124.284 kg
== END | disposition home or self-care (01) ==
LOC: BARWHC3 12:53
PROVIDERS: ATTEND Surgery Plastic and Reconstructive Surgery
DX: E66.01 Morbid (severe) obesity due to excess calories (principal)
CPT/HCPCS: 99211

== ENCOUNTER 2021-06-11 11:23 | Inpatient (IN) | payer MEDICARE, OTHER ==
[2021-06-11] MEDS ORDERED: MORPHINE SULFATE 2 MG/ML SYRINGE IVP ONE (11:55)
--- NOTE | 2021-06-11 12:36 | ED ---
General Adult HPI - General Chief complaint: Recheck/Abnormal Lab/Rx Stated complaint: Diabetic Infeection R Foot Time Seen by Provider: 06/11/21 11:33 Source: patient Mode of arrival: wheelchair Limitations: no limitations - History of Present Illness Initial comments: Patient is a 50-year-old male with history of diabetes, presenting to the emergency department from the wound center for a worsening right foot infection. Patient was sent down by Dr. Persaud. Lower worsening pain, redness and swelling to the right foot. He is unable to bear a lot of weight on this foot. Over the past few days he's also been feeling feverish, chills and fatigue. He states he's been trying to eat but his appetite has been lower. He has not been on antibiotics recently. He's had history of all of his toes amputated on both feet. He's been seen in the wound clinic weekly for over a few years now. He states recently he developed a new wound on the top of his right foot, this is the one that is worsening. His chronic wound on the plantar surface of his right foot seems to be stable. He denies any chest pain or shortness of breath, no nausea or vomiting. He is no further complaints. His vitals are stable upon arrival. - Related Data Home Medications Medication Instructions Recorded Confirmed FLUoxetine HCL [PROzac] 20 mg PO DAILY 05/28/16 06/11/21 Pregabalin [Lyrica] 150 mg PO BID 05/28/16 06/11/21 DULoxetine HCL [Cymbalta] 60 mg PO HS 06/29/16 06/11/21 ALPRAZolam [Xanax] 1 mg PO HS 02/15/19 06/11/21 Exenatide Microspheres [Bydureon 2 mg SQ SEARS 02/15/19 06/11/21 Pen] Fluticasone Nasal [place] [Flonase 1 spray EA NOSTRIL BID PRN 02/15/19 06/11/21 Nasal [place]] Olmesartan/Amlodipin/Hcthiazid 0.5 tab PO DAILY 02/15/19 06/11/21 [Tribenzor 40-10-25 mg Tablet] carvediloL 25 mg PO BID 12/28/19 06/11/21 Ergocalciferol [Vitamin D2 (1250 50,000 unit PO SEARS 12/20/20 06/11/21 Mcg = 48694 Iu)] ALPRAZolam [Xanax] 1 mg PO DAILY PRN 06/11/21 06/11/21 Calcium Citrate 250 mg PO TID 06/11/21 06/11/21 Ferrous Sulfate [Feosol] 325 mg PO DAILY 06/11/21 06/11/21 Multivitamin [Multivitamins Adult 1 tab PO DAILY 06/11/21 06/11/21 Gummies] Vascepa 1gm 1 gm PO BID 06/11/21 06/11/21 Zinc 50 mg PO DAILY 06/11/21 06/11/21 Previous Rx's Medication Instructions Recorded Omeprazole [PriLOSEC] 40 mg PO DAILY #30 capsule. 01/02/20 Allergies Allergy/AdvReac Type Severity Reaction Status Date / Time adhesive tape Allergy Rash/Hives Verified 06/11/21 13:02 Review of Systems ROS Statement: Those systems with pertinent positive or pertinent negative responses have been documented in the HPI. ROS Other: All systems not noted in ROS Statement are negative. Past Medical History Past Medical History: CVA/TIA, Diabetes Mellitus, Deep Vein Thrombosis (DVT), GERD/Reflux, Hypertension, Neurologic Disorder, Sleep Apnea/CPAP/BIPAP Additional Past Medical History / Comment(s): STATES OPEN WOULD ON LEFT FOOT, STATE DR. WEBER IS AWARE. 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 Bilateral feet all digits amputated. Staph infection in left thigh secondary to abcess removed surgically, multiple debridments and skin graft surgeries to bilateral feet, gastric bypass 01-01-20 Past Anesthesia/Blood Transfusion Reactions: Previous Problems w/ Anesthesia, Postoperative Nausea & Vomiting (PONV) Additional Past Anesthesia/Blood Transfusion Reaction / Comment(s): had "high fever last surgery 04/2019, [facility]" anesthesia record obtained from then, no mention of temp or malignant hyperthermia. Past Psychological History: Anxiety, Depression Smoking Status: Former smoker Past Alcohol Use History: Rare Past Drug Use History: Marijuana - Past Family History Father Family Medical History: Congestive Heart Failure (CHF), CVA/TIA Additional Family Medical History / Comment(s): at age 79 Mother Family Medical History: Cancer, COPD Additional Family Medical History / Comment(s): leukemia, at age 80 General Exam - General Exam Comments Initial Comments: GENERAL: Patient is well-developed and well-nourished. Patient is nontoxic and in no acute distress. HEAD: Atraumatic, normocephalic. EYES: Pupils equal round and reactive to light, extraocular movements intact, sclera anicteric, conjunctiva are normal. Eyelids were unremarkable. ENT: Moist mucous membranes. NECK: Normal range of motion, supple without lymphadenopathy or JVD. LUNGS: Unlabored respirations. Breath sounds clear to auscultation bilaterally and equal. No wheezes rales or rhonchi. HEART: Regular rate and rhythm without murmurs, rubs or gallops. ABDOMEN: Soft, nontender, normoactive bowel sounds. No guarding, no rebound. No masses appreciated. : Deferred MUSCULOSKELETAL: Patient has history of amputation of all 10 toes on both feet. He has a chronic wound on the plantar surface of his right foot, new wound on the dorsal aspect. He does have full pain-free ankle range of motion. He has swelling worsening on the right lower leg compared to left. He is neurovascular intact bilateral lower extremities. No clubbing or cyanosis. NEUROLOGICAL: Patient is alert and oriented x 3. Motor and sensory are also intact. Normal speech. PSYCH: Normal mood, normal affect. SKIN: Warm, Dry, normal turgor. Patient has stable 0.5 cm diabetic ulcer on the plantar surfaces right foot, there is no erythema or mild drainage. He has a worsening wound and new wound on the dorsal aspect of his right foot, approximately 1 cm in diameter with active drainage, odor and surrounding and spreading erythema. Patient also has what looks like petechiae on his right lower leg with increase in swelling. Limitations: no limitations Course Vital Signs 06/11/21 11:24 Temperature 98.0 F Pulse Rate 81 Respiratory 18 Rate Blood Pressure 115/73 O2 Sat by Pulse 98 Oximetry Medical Decision Making - Medical Decision Making Patient is a 50-year-old male with history of diabetes, presenting with wors ening wound on his right foot and right lower leg cellulitis. He was sent down from wound care. He has been having some night sweats, chills and fatigue. His vitals are stable today. Labs show a normal white count, CRP is 6.1. Patient will be admitted for IV antibiotics, consult to ID and vascular. Dr. Espinoza is accepting. Case discussed with Dr. Hernandez. - Lab Data Result diagrams: 06/11/21 12:42 06/11/21 12:42 Lab Results 06/11/21 06/11/21 06/11/21 Range/Units 12:42 12:42 12:42 WBC 7.3 (3.8-10.6) k/uL RBC 3.80 L (4.30-5.90) m/uL Hgb 12.6 L (13.0-17.5) gm/dL Hct 37.2 L (39.0-53.0) % MCV 98.0 (80.0-100.0) fL MCH 33.3 (25.0-35.0) pg MCHC 34.0 (31.0-37.0) g/dL RDW 13.2 (11.5-15.5) % Plt Count 292 (150-450) k/uL MPV 7.5 Neutrophils % 73 % Lymphocytes % 14 % Monocytes % 7 % Eosinophils % 2 % Basophils % 1 % Neutrophils # 5.3 (1.3-7.7) k/uL Lymphocytes # 1.0 (1.0-4.8) k/uL Monocytes # 0.5 (0-1.0) k/uL Eosinophils # 0.1 (0-0.7) k/uL Basophils # 0.1 (0-0.2) k/uL Poikilocytosis Slight Sodium 139 (137-145) mmol/L Potassium 3.5 (3.5-5.1) mmol/L Chloride 103 (98-107) mmol/L Carbon Dioxide 29 (22-30) mmol/L Anion Gap 7 mmol/L BUN 16 (9-20) mg/dL Creatinine 0.78 (0.66-1.25) mg/dL Est GFR (CKD-EPI)AfAm >90 (>60 ml/min/1.73 sqM) Est GFR (CKD-EPI)NonAf >90 (>60 ml/min/1.73 sqM) Glucose 111 H (74-99) mg/dL Plasma Lactic Acid Charan 0.8 (0.7-2.0) mmol/L Calcium 8.8 (8.4-10.2) mg/dL Total Bilirubin 0.6 (0.2-1.3) mg/dL AST 33 (17-59) U/L ALT 36 (4-49) U/L Alkaline Phosphatase 171 H (38-126) U/L C-Reactive Protein 6.1 H (<1.0) mg/dL Total Protein 6.7 (6.3-8.2) g/dL Albumin 3.3 L (3.5-5.0) g/dL Disposition Clinical Impression: Wound of right foot, Cellulitis of right lower leg Disposition: ADMITTED IP TO THIS [facility] Condition: Stable Referrals: Willard Vila MD [Primary Care Provider] - 1-2 days Decision Date: 06/11/21 Decision Time: 14:05
[2021-06-11 13:02] LABS: Basophils # (A) 0.1 k/uL (0-0.2); Basophils % (A) 1 %; Eosinophils # (A) 0.1 k/uL (0-0.7); Eosinophils % (A) 2 %; HCT 37.2 % (39.0-53.0); HGB 12.6 gm/dL (13.0-17.5); Lymphocytes % (A) 14 %; MCH 33.3 pg (25.0-35.0); Mean Platelet Volume 7.5; Monocytes # (A) 0.5 k/uL (0-1.0); Monocytes % (A) 7 %; Neutrophils # (A) 5.3 k/uL (1.3-7.7); Neutrophils % (A) 73 %; Platelet Count 292 k/uL (150-450); Poikilocytosis Slight; RDW 13.2 % (11.5-15.5); WBC 7.3 k/uL (3.8-10.6)
[2021-06-11 13:13] LABS: ALT 36 U/L (4-49); AST 33 U/L (17-59); African American GFR (CKD) >90 (>60 ml/min/1.73 sqM); Albumin 3.3 g/dL (3.5-5.0); Alkaline Phosphatase 171 U/L (38-126); Anion Gap 7 mmol/L; Blood Urea Nitrogen 16 mg/dL (9-20); Calcium 8.8 mg/dL (8.4-10.2); Carbon Dioxide 29 mmol/L (22-30); Chloride 103 mmol/L (98-107); Glucose 111 mg/dL (74-99); Non-African American GFR(CKD) >90 (>60 ml/min/1.73 sqM); Potassium 3.5 mmol/L (3.5-5.1); Sodium 139 mmol/L (137-145); Total Bilirubin 0.6 mg/dL (0.2-1.3); Total Protein 6.7 g/dL (6.3-8.2)
[2021-06-11 13:32] LABS: C Reactive Protein 6.1 mg/dL (<1.0)
--- NOTE | 2021-06-11 13:39 | XR ---
Right foot HISTORY: Nonhealing wound 2 views the right foot Transmetatarsal amputation has been performed. Soft tissue calcification and areas of lucency are pre sent. Underlying arthropathy changes are present, there is soft tissue swelling. Plantar calcaneus sp ur is noted. Enthesophyte present at the insertion of Achilles tendon. There are vascular calcificati ons present. IMPRESSION: Correlate for soft tissue infection, possible abscess. Difficult to exclude osteomyelitis .
[2021-06-11] MEDS ORDERED: IBUPROFEN 400 MG TAB PO PRN (13:56)
[2021-06-11] MEDS ORDERED: ACETAMINOPHEN TAB 325 MG TAB PO PRN (13:56)
[2021-06-11] MEDS ORDERED: NALOXONE 0.4 MG/ML 1 ML VIAL IV PRN (13:56)
[2021-06-11] MEDS ORDERED: ONDANSETRON 4 MG/2 ML VIAL IVP PRN (13:56)
[2021-06-11] MEDS ORDERED: cefTRIAXone IN SWFI 1,000 MG/10 ML SYRINGE IVP STA (14:02)
[2021-06-11] MEDS ORDERED: VANCOMYCIN IV PER PHARMACY 1 EACH MISC MISCELLANE PRN (14:02)
[2021-06-11] MEDS ORDERED: VANCOMYCIN 2,500 MG in SODIUM CHLORIDE 0.9% 500 ML 500 ML IVPB ONE (15:00)
[2021-06-11] MEDS ORDERED: ALPRAZolam 1 MG TAB PO PRN (15:15)
[2021-06-11 15:43] LABS: Erythrocyte Sedimentation Rate 94 mm/hr (0-15)
[2021-06-11] MEDS: SODIUM CHLORIDE 0.9% 1,000 ML IV SCH ×2 (16:00→21:30)
[2021-06-11] MEDS: CALCIUM CARBONATE 500 MG CHEWABLE PO SCH ×2 (17:35→20:44)
[2021-06-11] MEDS: carvediloL 12.5 MG TAB PO SCH (17:35)
[2021-06-11] MEDS: HYDROcodone/APAP 5-325MG 1 EACH TAB PO PRN (17:36)
--- NOTE | 2021-06-11 20:31 | P.HPIM ---
History of Present Illness This is a pleasant 50 years old male with past medical history of diabetes mellitus, deep venous thrombosis on Coumadin, his DVT was more than 10 years ago, GERD, hypertension, sleep apnea on CPAP/BiPAP, neuropathy involving all ex tremities, anxiety and depression He was sent from his Dr. Persaud office for diabetic infection, right foot since Wednesday. He is status post bilateral toe amputation Lisa he has 1 inch longitudinal ulcer and the lateral distal foot stump with some purulent discharge and some yellowin the surrounding area with redness, warmth and swelling extending up to the mid to right leg. No much tenderness He denies any other complaints, no chest pain or dyspnea. No change in urine or bowel habits. 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 MAPS was checked and he is on Xanax twice a day Review of Systems CONSTITUTIONAL: No fever, no malaise, no fatigue. HEENT: No recent visual problems or hearing problems. Denied any sore throat. CARDIOVASCULAR: No orthopnea, PND, no palpitations, no syncope. PULMONARY: No shortness of breath, no cough, no hemoptysis. GASTROINTESTINAL: No diarrhea, no nausea, no vomiting, no abdominal pain. Normo active bowel sounds. NEUROLOGICAL: No headaches, no weakness, no numbness. HEMATOLOGICAL: Denies any bleeding or petechiae. GENITOURINARY: Denies any burning micturition, frequency, or urgency. -MUSCULOSKELETAL/RHEUMATOLOGICAL: Denies any joint pain, swelling, or any muscle pain. Except was mentioned above ENDOCRINE: Denies any polyuria or polydipsia. Past Medical History Past Medical History: CVA/TIA, Diabetes Mellitus, Deep Vein Thrombosis (DVT), GERD/Reflux, Hypertension, Neurologic Disorder, Sleep Apnea/CPAP/BIPAP Additional Past Medical History / Comment(s): STATES OPEN WOULD ON LEFT FOOT, STATE DR. WEBER IS AWARE. 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 Bilateral feet all digits amputated. Staph infection in left thigh secondary to abcess removed surgically, multiple debridments and skin graft surgeries to bilateral feet, gastric bypass 01-01-20 Past Anesthesia/Blood Transfusion Reactions: Previous Problems w/ Anesthesia, Postoperative Nausea & Vomiting (PONV) Additional Past Anesthesia/Blood Transfusion Reaction / Comment(s): had "high fever last surgery 04/2019, [facility]" anesthesia record obtained from then, no mention of temp or malignant hyperthermia. Past Psychological History: Anxiety, Depression Smoking Status: Former smoker Past Alcohol Use History: Rare Past Drug Use History: Marijuana - Past Family History Father Family Medical History: Congestive Heart Failure (CHF), CVA/TIA Additional Family Medical History / Comment(s): at age 79 Mother Family Medical History: Cancer, COPD Additional Family Medical History / Comment(s): leukemia, at age 80 Medications and Allergies Home Medications Medication Instructions Recorded Confirmed Type FLUoxetine HCL [PROzac] 20 mg PO DAILY 05/28/16 06/11/21 History Pregabalin [Lyrica] 150 mg PO BID 05/28/16 06/11/21 History DULoxetine HCL [Cymbalta] 60 mg PO HS 06/29/16 06/11/21 History ALPRAZolam [Xanax] 1 mg PO HS 02/15/19 06/11/21 History Exenatide Microspheres [Bydureon 2 mg SQ SEARS 02/15/19 06/11/21 History Pen] Fluticasone Nasal [place] [Flonase 1 spray EA NOSTRIL BID PRN 02/15/19 06/11/21 History Nasal [place]] Olmesartan/Amlodipin/Hcthiazid 0.5 tab PO DAILY 02/15/19 06/11/21 History [Tribenzor 40-10-25 mg Tablet] carvediloL 25 mg PO BID 12/28/19 06/11/21 History Omeprazole [PriLOSEC] 40 mg PO DAILY #30 capsule. 01/02/20 06/11/21 Rx Ergocalciferol [Vitamin D2 (1250 50,000 unit PO SEARS 12/20/20 06/11/21 History Mcg = 47831 Iu)] ALPRAZolam [Xanax] 1 mg PO DAILY PRN 06/11/21 06/11/21 History Calcium Citrate 250 mg PO TID 06/11/21 06/11/21 History Ferrous Sulfate [Feosol] 325 mg PO DAILY 06/11/21 06/11/21 History Multivitamin [Multivitamins Adult 1 tab PO DAILY 06/11/21 06/11/21 History Gummies] Vascepa 1gm 1 gm PO BID 06/11/21 06/11/21 History Zinc 50 mg PO DAILY 06/11/21 06/11/21 History Allergies Allergy/AdvReac Type Severity Reaction Status Date / Time adhesive tape Allergy Rash/Hives Verified 06/11/21 13:02 Physical Exam Vitals: Vital Signs Temp Pulse Resp BP Pulse Ox 06/11/21 11:24 98.0 F 81 18 115/73 98 Intake and Output 06/11/21 06/11/21 06/11/21 06:59 14:59 22:59 Other: Weight 120.202 kg GENERAL: The patient is alert and oriented x3, not in any acute distress. Well developed, well nourished. HEENT: Pupils are round and equally reacting to light. EOMI. No scleral icterus. No conjunctival pallor. Normocephalic, atraumatic. No pharyngeal erythema. No thyromegaly. CARDIOVASCULAR: S1 and S2 present. No murmurs, rubs, or gallops. PULMONARY: Chest is clear to auscultation, no wheezing or crackles. ABDOMEN: Soft, nontender, nondistended, normoactive bowel sounds. No palpable organomegaly. MUSCULOSKELETAL: No joint swelling or deformity. -EXTREMITIES: No cyanosis, clubbing, or pedal edema. Right foot swollen, red and tender NEUROLOGICAL: Gross neurological examination did not reveal any focal deficits. SKIN: No rashes. No petechiae Results CBC & Chem 7: 06/11/21 12:42 06/11/21 12:42 Labs: Abnormal Lab Results - Last 24 Hours (Table) 06/11/21 06/11/21 Range/Units 12:42 12:42 RBC 3.80 L (4.30-5.90) m/uL Hgb 12.6 L (13.0-17.5) gm/dL Hct 37.2 L (39.0-53.0) % Glucose 111 H (74-99) mg/dL Alkaline Phosphatase 171 H (38-126) U/L C-Reactive Protein 6.1 H (<1.0) mg/dL Albumin 3.3 L (3.5-5.0) g/dL Assessment and Plan Assessment: Right diabetic foot infection and cellulitis, rule out osteomyelitis Diabetes mellitus History of deep venous thrombosis , more than 5 years ago History of GERD Hypertension History of bilateral toe amputation. 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 Continue with antibiotics and consult infectious disease team Vascular surgery evaluation Consult Dr. Persaud Continue gentle hydration Check ultrasound of the legs to rule out DVT Labs and medication were reviewed.. Continue same treatment. Continue with symptomatic treatment. Resume home medication. Monitor lytes and vitals. DVT and GI prophylaxis. Further recommendations depends on the clinical course of the patient DVT prophylaxis: Continue with subcutaneous heparin for DVT prophylaxis GI Prophylaxis: Pepcid PT/OT: Prognosis is guarded
[2021-06-11] MEDS: PREGABALIN 75 MG CAP PO SCH (20:44)
[2021-06-11] MEDS: DULoxetine HCL 60 MG CAPSULE.DR PO SCH (20:44)
[2021-06-11] MEDS: HEPARIN SODIUM,PORCINE/PF 5,000 UNIT/0.5 ML SYRINGE SQ SCH (20:46)
[2021-06-11] MEDS: FAMOTIDINE 20 MG/2 ML VIAL IV SCH (20:46)
[2021-06-11 20:50] LABS: Glucose,Whole Blood 99 mg/dL (75-99)
--- NOTE | 2021-06-11 22:15 | US ---
EXAMINATION TYPE: US venous doppler duplex LE DATE OF EXAM: 06/11/2021 8:47 PM COMPARISON: NONE CLINICAL HISTORY: Rule out DVT. R/O DVT. Patient has hx of DVT in right arm and right leg. Patient do es not take blood thinners. SIDE PERFORMED: Bilateral TECHNIQUE: The lower extremity deep venous system is examined utilizing real time linear array sonog bong with graded compression, doppler sonography and color-flow sonography. VESSELS IMAGED: Common Femoral Vein Deep Femoral Vein Greater Saphenous Vein * Femoral Vein Popliteal Vein Small Saphenous Vein * Proximal Calf Veins (* superficial vessels) Right Leg: Popliteal vein appears to compress incompletely. Possible chronic internal echoes along w all. All veins imaged show color flow within. -Hypoechoic area with hyperechoic center and vascularity seen within the right groin: 3.8 x 3.2 x 1.3 cm. Left Leg: Popliteal vein appears to compress incompletely. Possible chronic internal echoes along wa ll. All veins imaged show color flow within. -Hypoechoic area with hyperechoic center and vascularity seen within the left groin: 3.2 x 1.7 x 1.0 cm. IMPRESSION: No evidence of acute deep vein thrombosis. There is incomplete compressibility of the po pliteal vein that could be some limited chronic deep vein thrombosis.
[2021-06-12] MEDS: VANCOMYCIN 2,000 MG in SODIUM CHLORIDE 0.9% 500 ML 500 ML IVPB SCH ×3 (02:34→19:56)
[2021-06-12 06:11] LABS: ALT 29 U/L (4-49); AST 27 U/L (17-59); African American GFR (CKD) >90 (>60 ml/min/1.73 sqM); Albumin 2.8 g/dL (3.5-5.0); Albumin/Globulin Ratio 0.9; Alkaline Phosphatase 139 U/L (38-126); Anion Gap 5 mmol/L; Bilirubin,Unconjugated 0.3 mg/dL (0.0-1.1); Blood Urea Nitrogen 13 mg/dL (9-20); Calcium 8.5 mg/dL (8.4-10.2); Carbon Dioxide 29 mmol/L (22-30); Chloride 105 mmol/L (98-107); Glucose 127 mg/dL (74-99); Magnesium 1.9 mg/dL (1.6-2.3); Non-African American GFR(CKD) >90 (>60 ml/min/1.73 sqM); Potassium 3.2 mmol/L (3.5-5.1); Sodium 139 mmol/L (137-145); Total Bilirubin 0.3 mg/dL (0.2-1.3); Total Protein 5.8 g/dL (6.3-8.2)
[2021-06-12 06:16] LABS: Partial Thromboplastin Time 23.5 sec (22.0-30.0); Prothrombin Time 10.3 sec (9.0-12.0)
[2021-06-12 06:53] LABS: Basophils % (A) 1 %; Eosinophils # (A) 0.2 k/uL (0-0.7); Eosinophils % (A) 3 %; HCT 32.1 % (39.0-53.0); HGB 11.2 gm/dL (13.0-17.5); Lymphocytes # (A) 0.9 k/uL (1.0-4.8); Lymphocytes % (A) 16 %; MCH 33.8 pg (25.0-35.0); MCHC 34.9 g/dL (31.0-37.0); Mean Platelet Volume 7.1; Monocytes # (A) 0.3 k/uL (0-1.0); Monocytes % (A) 6 %; Neutrophils # (A) 3.9 k/uL (1.3-7.7); Neutrophils % (A) 73 %; Platelet Count 266 k/uL (150-450); RBC 3.31 m/uL (4.30-5.90); RDW 12.9 % (11.5-15.5); WBC 5.4 k/uL (3.8-10.6)
[2021-06-12 07:46] LABS: Glucose,Whole Blood 102 mg/dL (75-99)
[2021-06-12] MEDS: FLUoxetine HCL 20 MG CAP PO SCH (07:51)
[2021-06-12] MEDS: carvediloL 12.5 MG TAB PO SCH ×2 (07:51→18:17)
[2021-06-12] MEDS: FAMOTIDINE 20 MG/2 ML VIAL IV SCH ×2 (07:51→19:57)
[2021-06-12] MEDS: CALCIUM CARBONATE 500 MG CHEWABLE PO SCH ×3 (07:51→19:56)
[2021-06-12] MEDS: PREGABALIN 75 MG CAP PO SCH ×2 (07:51→19:57)
[2021-06-12] MEDS: HEPARIN SODIUM,PORCINE/PF 5,000 UNIT/0.5 ML SYRINGE SQ SCH ×2 (07:52→19:56)
[2021-06-12] MEDS: HYDROcodone/APAP 5-325MG 1 EACH TAB PO PRN (12:00)
[2021-06-12 12:13] VITALS: BMI 32.2
[2021-06-12] MEDS ORDERED: Potassium Replacement Protocol 1 EACH MISC MISCELLANE PRN (12:18)
--- NOTE | 2021-06-12 12:21 | P.PN ---
Subjective This is a pleasant 50 years old male with past medical history of diabetes mellitus, deep venous thrombosis on Coumadin, his DVT was more than 10 years ago, GERD, hypertension, sleep apnea on CPAP/BiPAP, neuropathy involving all extremities, anxiety and depression He was sent from his Dr. Persaud office for diabetic infection, right foot since Wednesday. He is status post bilateral toe amputation Lisa he has 1 inch longitudinal ulcer and the lateral distal foot stump with some purulent discharge and some yellowin the surrounding area with redness, warmth and swelling extending up to the mid to right leg. No much tenderness He denies any other complaints, no chest pain or dyspnea. No change in urine or bowel habits. 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 Sparks, he status post bariatric surgery on 12/2019, since then his diabetes is better controlled and his hemoglobin A1c as he states was 4.43 months ago, he uses 1 injection once weekly He denies smoking, alcohol or illicit drugs No depression or suicidal ideation He has sleep apnea and uses CPAP at home and his sister will bring him his machine to the hospital Vital signs stable Labs reviewed showed an unremarkable CBC, BMP and liver enzymes. MAPS was checked and he is on Xanax twice a day 06/12/2021 Patient right leg warmth and swelling is better today. His right foot stump is in a dressing for his distal lateral wound with still purulent discharge. Vitals are stable. Creatinine is normal. Low potassium replaced. The patient is afebrile Ultrasound of the leg is negative for DVT Patient remains on normal saline at 75 mL/h and IV vancomycin Wound culture is pending Objective - Vital Signs Vital signs: Vital Signs Temp 98.4 F 06/12/21 04:46 Pulse 81 06/12/21 04:46 Resp 18 06/12/21 04:46 BP 144/78 06/12/21 04:46 Pulse Ox 95 06/12/21 04:46 Intake & Output 06/11/21 06/12/21 06/12/21 18:59 06:59 18:59 Intake Total 2490 Output Total 1600 Balance 890 Weight 120.202 kg 120.202 kg Intake: Intake, IV Titration 1750 Amount Sodium Chloride 0.9% 1, 750 000 ml @ 75 mls/hr IV . [id number] [facility] Rx#:[id number] Vancomycin 2,000 mg In 500 Sodium Chloride 0.9% 500 ml 500 ml @ 167 mls/hr IVPB Q8H [facility] Rx#: [id number] Vancomycin 2,500 mg In 500 Sodium Chloride 0.9% 500 ml 500 ml @ 167 mls/hr IVPB ONCE ONE Rx#: [id number] Oral 740 Output: Urine 1600 Other: Voiding Method Toilet Urinal # Voids 1 3 1 - Exam GENERAL: The patient is alert and oriented x3, not in any acute distress. Well developed, well nourished. HEENT: Pupils are round and equally reacting to light. EOMI. No scleral icterus. No conjunctival pallor. Normocephalic, atraumatic. No pharyngeal erythema. No thyromegaly. CARDIOVASCULAR: S1 and S2 present. No murmurs, rubs, or gallops. PULMONARY: Chest is clear to auscultation, no wheezing or crackles. ABDOMEN: Soft, nontender, nondistended, normoactive bowel sounds. No palpable organomegaly. MUSCULOSKELETAL: No joint swelling or deformity. -EXTREMITIES: No cyanosis, clubbing, or pedal edema. Right foot swollen, red and tender NEUROLOGICAL: Gross neurological examination did not reveal any focal deficits. SKIN: No rashes. No petechiae - Labs CBC & Chem 7: 06/12/21 05:25 06/12/21 05:25 Labs: Abnormal Lab Results - Last 24 Hours (Table) 06/11/21 06/11/21 06/12/21 Range/Units 12:42 12:42 05:25 RBC 3.80 L (4.30-5.90) m/uL Hgb 12.6 L (13.0-17.5) gm/dL Hct 37.2 L (39.0-53.0) % Lymphocytes # (1.0-4.8) k/uL ESR 94 H (0-15) mm/hr Potassium 3.2 L (3.5-5.1) mmol/L Glucose 111 H 127 H (74-99) mg/dL POC Glucose (mg/dL) (75-99) mg/dL Alkaline Phosphatase 171 H 139 H (38-126) U/L C-Reactive Protein 6.1 H (<1.0) mg/dL Total Protein 5.8 L (6.3-8.2) g/dL Albumin 3.3 L 2.8 L (3.5-5.0) g/dL 06/12/21 06/12/21 Range/Units 05:25 07:43 RBC 3.31 L (4.30-5.90) m/uL Hgb 11.2 L (13.0-17.5) gm/dL Hct 32.1 L (39.0-53.0) % Lymphocytes # 0.9 L (1.0-4.8) k/uL ESR (0-15) mm/hr Potassium (3.5-5.1) mmol/L Glucose (74-99) mg/dL POC Glucose (mg/dL) 102 H (75-99) mg/dL Alkaline Phosphatase (38-126) U/L C-Reactive Protein (<1.0) mg/dL Total Protein (6.3-8.2) g/dL Albumin (3.5-5.0) g/dL Microbiology - Last 24 Hours (Table) 06/11/21 12:42 Gram Stain - Preliminary Foot - Right Wound Culture - Preliminary
[2021-06-12] MEDS: POTASSIUM CHLORIDE ER 20 MEQ TAB.ER PO SCH ×2 (12:55→15:12)
[2021-06-12] MEDS: CEFEPIME 2 GM in SODIUM CHLORIDE 0.9% 100 ML IVPB SCH ×2 (16:04→23:29)
[2021-06-12 16:19] LABS: Hemoglobin A1C 5.1 % (4.0-6.0)
--- NOTE | 2021-06-12 17:02 | CT ---
EXAMINATION TYPE: CT foot RT w con DATE OF EXAM: 06/12/2021 COMPARISON: None HISTORY: RT foot abscess CT DLP: 302.70 mGycm Automated exposure control for dose reduction was used. Contrast-enhanced CT of the right foot was ob tained. CONTRAST: Performed without and with IV Contrast, patient injected with 100 mL of Isovue 300. FINDINGS: There has been amputation of the entire great toe. Amputations of the second third fourth and fifth d igits from the metatarsal neck regions. There is soft tissue edema at the stump site and throughout the right foot. Soft tissue ulcerations n oted at the stump. Difficult to measure abscess surrounds the second ,third, fourth and fifth amputat ed metatarsals. Abscess appears to be multi loculated with largest component measuring 6.3 x 3.3 cm l ocated at the stump and distal amputated metatarsals. There are erosive changes noted to involve the fourth metatarsal at its amputated end compatible with underlying osteomyelitis. There is periosteal reaction noted to involve the second metatarsal at its amputated end. IMPRESSION: EXTENSIVE MULTILOCULATED ABSCESS SURROUNDS AMPUTATED METATARSALS TO 34 AND 5 WITH EROSIVE CHANGES AND PERIOSTEAL REACTION COMPATIBLE WITH UNDERLYING OSTEOMYELITIS. EXTENSIVE SOFT TISSUE EDEMA AND CELLUL ITIS. SOFT TISSUE ULCERATIONS NOTED.
[2021-06-12] MEDS: DULoxetine HCL 60 MG CAPSULE.DR PO SCH (19:57)
[2021-06-12] MEDS: SODIUM CHLORIDE 0.9% 1,000 ML IV SCH (23:29)
[2021-06-13] MEDS: VANCOMYCIN 2,000 MG in SODIUM CHLORIDE 0.9% 500 ML 500 ML IVPB SCH ×4 (03:19→22:01)
[2021-06-13] MEDS: HYDROcodone/APAP 5-325MG 1 EACH TAB PO PRN (03:24)
[2021-06-13 05:39] LABS: Basophils % (A) 1 %; Eosinophils # (A) 0.2 k/uL (0-0.7); Eosinophils % (A) 5 %; HCT 35.1 % (39.0-53.0); HGB 11.8 gm/dL (13.0-17.5); Lymphocytes # (A) 0.9 k/uL (1.0-4.8); Lymphocytes % (A) 24 %; MCH 32.9 pg (25.0-35.0); MCHC 33.6 g/dL (31.0-37.0); MCV 97.7 fL (80.0-100.0); Mean Platelet Volume 7.2; Monocytes # (A) 0.3 k/uL (0-1.0); Monocytes % (A) 8 %; Neutrophils # (A) 2.2 k/uL (1.3-7.7); Neutrophils % (A) 61 %; Platelet Count 280 k/uL (150-450); Poikilocytosis Slight; RBC 3.59 m/uL (4.30-5.90); WBC 3.7 k/uL (3.8-10.6)
--- NOTE | 2021-06-13 06:28 | P.CONS ---
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 Snow at the wound care center patient noticed that last week he started having a some fever and chills and his left foot was getting more swollen and red patient was subsequently referred to his PCP for evaluation of his fever, the patient PCP did check his UA which was negative did not prescribe antibiotics patient noticed to having increasing swelling and redness of his left foot and subsequently did have a spontaneous drainage of the abscess on the dorsum aspect of the left foot patient be complaining of pain to the left foot to be throbbing intensity almost 7-8 out of 10 and no radiation with associated swelling redness and drainage but no foul-smelling patient did have a fever and chills with the same with the patient was sent to the ER for further evaluation on arrival to the ER the patient was afebrile patient did have a normal white count did have elevated sed rate of 94 CRP was elevated enzymes are normal creatinine was normal patient did have a x-rays of the foot which shows correlate for soft tissue infection possible abscess difficult to exclude osteomyelitis, patient did have local cultures obtained he was started on vancomycin infectious disease was consulted for further management of antibiotic therapy Review of system: CONSTITUTIONAL: Positive for weakness along with the fever. EYES: No complaint. ENT: No complaint. RESPIRATORY: No complaint. CARDIOVASCULAR: No complaint. GENITOURINARY: No complaint. GASTROINTESTINAL: No complaint. MUSCULOSKELETAL: As per history of present illness. INTEGUMENTARY: As per history of present illness. PSYCHOLOGIC: No complaint. ENDOCRINE: No complaint. NEUROLOGIC: No complaint. Past medical history : Reviewed, documented below Past surgical history : Reviewed, documented below Social history: Reviewed, documented below Medications: Reviewed, as documented below GENERAL DESCRIPTION: Middle-aged male up in the chair, no distress. No tachypnea or accessory muscle of respiration use. HEENT: Shows Pallor , no scleral icterus. Oral mucous membrane is dry. NECK: Trachea central, no thyromegaly. LUNGS: Unlabored breathing. Clear to auscultation anteriorly. No wheeze or crackle. HEART: S1, S2, regular rate and rhythm. ABDOMEN: Soft, no tenderness , guarding or rigidity EXTREMITIES: Left foot did have extensive swelling and redness with the wound on the dorsal aspect and some drainage SKIN: No rash, no masses palpable. NEUROLOGICAL: The patient is awake, alert, oriented x3, mood and affect normal. LABS AND RADIOLOGY: Reviewed results see below Assessment : Patient presented to hospital with extensive left foot infection in this patient who did have a swelling and redness and concerning for underlying abscess with cultures times so far showing a gram-negative bacilli along with a strep Plan: 1-we will obtain a CT of the left foot to better define underlying pathology 2-vascular surgery evaluation for drainage of the abscess and deep culture 3-vancomycin pharmacy to dose her with a target trough of 15 while watching her kidney function and Vanco trough closely. 4-add cefepime 2 g every 8 hours We will follow on clinical condition and cultures to further adjust medication if needed Past Medical History Past Medical History: CVA/TIA, Diabetes Mellitus, Deep Vein Thrombosis (DVT), GERD/Reflux, Hypertension, Neurologic Disorder, Sleep Apnea/CPAP/BIPAP Additional Past Medical History / Comment(s): STATES OPEN WOULD ON LEFT FOOT, STATE DR. WEBER IS AWARE. 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 Bilateral feet all d igits amputated. Staph infection in left thigh secondary to abcess removed surgically, multiple debridments and skin graft surgeries to bilateral feet, gastric bypass 12-31- Past Anesthesia/Blood Transfusion Reactions: Previous Problems w/ Anesthesia, Postoperative Nausea & Vomiting (PONV) Additional Past Anesthesia/Blood Transfusion Reaction / Comm: had "high fever last surgery 04/2019, [facility]" anesthesia record obtained from anant sanders, no mention of temp or malignant hyperthermia. Past Psychological History: Anxiety, Depression Smoking Status: Former smoker Past Alcohol Use History: Rare Past Drug Use History: Marijuana - Past Family History Father Family Medical History: Congestive Heart Failure (CHF), CVA/TIA Additional Family Medical History / Comment(s): at age 79 Mother Family Medical History: Cancer, COPD Additional Family Medical History / Comment(s): leukemia, at age 80 Medications and Allergies Home Medications Medication Instructions Recorded Confirmed Type FLUoxetine HCL [PROzac] 20 mg PO DAILY 05/28/16 06/11/21 History Pregabalin [Lyrica] 150 mg PO BID 05/28/16 06/11/21 History DULoxetine HCL [Cymbalta] 60 mg PO HS 06/29/16 06/11/21 History ALPRAZolam [Xanax] 1 mg PO HS 02/15/19 06/11/21 History Exenatide Microspheres [Bydureon 2 mg SQ SEARS 02/15/19 06/11/21 History Pen] Fluticasone Nasal Talmo [Flonase 1 spray EA NOSTRIL BID PRN 02/15/19 06/11/21 History Nasal Talmo] Olmesartan/Amlodipin/Hcthiazid 0.5 tab PO DAILY 02/15/19 06/11/21 History [Tribenzor 40-10-25 mg Tablet] carvediloL 25 mg PO BID 12/28/19 06/11/21 History Omeprazole [PriLOSEC] 40 mg PO DAILY #30 capsule. 01/02/20 06/11/21 Rx Ergocalciferol [Vitamin D2 (1250 50,000 unit PO SEARS 12/20/20 06/11/21 History Mcg = 53411 Iu)] ALPRAZolam [Xanax] 1 mg PO DAILY PRN 06/11/21 06/11/21 History Calcium Citrate 250 mg PO TID 06/11/21 06/11/21 History Ferrous Sulfate [Feosol] 325 mg PO DAILY 06/11/21 06/11/21 History Multivitamin [Multivitamins Adult 1 tab PO DAILY 06/11/21 06/11/21 History Gummies] Vascepa 1gm 1 gm PO BID 06/11/21 06/11/21 History Zinc 50 mg PO DAILY 06/11/21 06/11/21 History Allergies Allergy/AdvReac Type Severity Reaction Status Date / Time adhesive tape Allergy Rash/Hives Verified 06/11/21 13:02 Physical Exam Vitals: Vital Signs Temp Pulse Pulse Resp BP BP Pulse Ox 06/12/21 04:46 98.4 F 81 18 144/78 95 06/11/21 19:07 98.3 F 74 18 129/72 95 06/11/21 17:34 98.2 F 82 16 143/69 94 L 06/11/21 11:24 98.0 F 81 18 115/73 98 Intake and Output 06/11/21 06/12/21 06/12/21 22:59 06:59 14:59 Intake Total 2490 Output Total 1600 Balance 890 Intake: Intake, IV Titration 1750 Amount Sodium Chloride 0.9% 1, 750 000 ml @ 75 mls/hr IV . [id number] [facility] Rx#:[id number] Vancomycin 2,000 mg In 500 Sodium Chloride 0.9% 500 ml 500 ml @ 167 mls/hr IVPB Q8H [facility] Rx#: [id number] Vancomycin 2,500 mg In 500 Sodium Chloride 0.9% 500 ml 500 ml @ 167 mls/hr IVPB ONCE ONE Rx#: [id number] Oral 740 Output: Urine 1600 Other: Voiding Method Toilet Urinal # Voids 1 3 Results CBC & Chem 7: 06/13/21 05:13 06/12/21 05:25 Labs: Abnormal Lab Results - Last 24 Hours (Table) 06/11/21 06/11/21 06/12/21 Range/Units 12:42 12:42 05:25 RBC 3.80 L (4.30-5.90) m/uL Hgb 12.6 L (13.0-17.5) gm/dL Hct 37.2 L (39.0-53.0) % Lymphocytes # (1.0-4.8) k/uL ESR 94 H (0-15) mm/hr Potassium 3.2 L (3.5-5.1) mmol/L Glucose 111 H 127 H (74-99) mg/dL POC Glucose (mg/dL) (75-99) mg/dL Alkaline Phosphatase 171 H 139 H (38-126) U/L C-Reactive Protein 6.1 H (<1.0) mg/dL Total Protein 5.8 L (6.3-8.2) g/dL Albumin 3.3 L 2.8 L (3.5-5.0) g/dL 06/12/21 06/12/21 Range/Units 05:25 07:43 RBC 3.31 L (4.30-5.90) m/uL Hgb 11.2 L (13.0-17.5) gm/dL Hct 32.1 L (39.0-53.0) % Lymphocytes # 0.9 L (1.0-4.8) k/uL ESR (0-15) mm/hr Potassium (3.5-5.1) mmol/L Glucose (74-99) mg/dL POC Glucose (mg/dL) 102 H (75-99) mg/dL Alkaline Phosphatase (38-126) U/L C-Reactive Protein (<1.0) mg/dL Total Protein (6.3-8.2) g/dL Albumin (3.5-5.0) g/dL Microbiology - Last 24 Hours (Table) 06/11/21 12:42 Gram Stain - Preliminary Foot - Right Wound Culture - Preliminary
[2021-06-13] MEDS: FLUoxetine HCL 20 MG CAP PO SCH (07:41)
[2021-06-13] MEDS: CALCIUM CARBONATE 500 MG CHEWABLE PO SCH ×3 (07:41→21:49)
[2021-06-13] MEDS: CEFEPIME 2 GM in SODIUM CHLORIDE 0.9% 100 ML IVPB SCH (07:41)
[2021-06-13] MEDS: PREGABALIN 75 MG CAP PO SCH ×2 (07:42→21:49)
[2021-06-13] MEDS: carvediloL 12.5 MG TAB PO SCH ×2 (07:42→18:04)
[2021-06-13] MEDS: HEPARIN SODIUM,PORCINE/PF 5,000 UNIT/0.5 ML SYRINGE SQ SCH ×2 (07:42→21:50)
[2021-06-13] MEDS: FAMOTIDINE 20 MG/2 ML VIAL IV SCH ×2 (07:42→21:50)
[2021-06-13 10:12] LABS: African American GFR (CKD) 128.4 (60.0-200.0); Anion Gap 5.4 mmol/L (4.00-12.00); BUN/Creat Ratio 17.14 Ratio (12.00-20.00); Calcium 8.3 mg/dL (8.7-10.3); Carbon Dioxide 30.6 mmol/L (21.6-31.8); Magnesium 1.8 mg/dL (1.5-2.4); Non-African American GFR(CKD) 110.8 (60.0-200.0); Potassium 3.5 mmol/L (3.5-5.5)
[2021-06-13] MEDS ORDERED: VANCOMYCIN TROUGH DUE 1 EACH MISC MISCELLANE ONE (11:00)
[2021-06-13] MEDS: SODIUM CHLORIDE 0.9% 1,000 ML IV SCH ×2 (16:09→21:50)
--- NOTE | 2021-06-13 17:15 | PN ---
PROGRESS NOTE DATE OF SERVICE: 06/13/2021 REASON FOR FOLLOWUP: Left diabetic foot infection with an abscess. INTERVAL HISTORY: The patient is afebrile. The patient is currently breathing comfortably. Overall pain and discomfort to the left foot have slightly decreased. No chest pain, shortness of breath or cough. No abdominal pain or diarrhea. PHYSICAL EXAMINATION: Blood pressure 151/88 with a pulse of 74, temperature 98.6. He is 97% on room air. GENERAL DESCRIPTION: General description is a middle-aged male up in the chair in no distress. RESPIRATORY SYSTEM: Unlabored breathing. Clear to auscultation anteriorly. HEART: S1, S2. Regular rate and rhythm. ABDOMEN: Soft. No tenderness. Left foot is currently dressed. No drainage on the dressing. LABS: Hemoglobin is 11.8, white count 3.7, BUN of 12, creatinine 0.7. Vancomycin trough is 25. DIAGNOSTIC IMPRESSION AND PLAN: Patient with a left foot diabetic foot infection with underlying abscess. Culture now showing E coli, Strep agalactiae and Staph aureus. Staph aureus sensitivity is pending. CT did show evidence of an abscess. This was discussed with the vascular surgeon, who was not notified of this concern, for surgical drainage. The patient's antibiotic will be adjusted to Unasyn and continue vancomycin. Monitor clinical course closely. MMODL / IJN: [id number] /
--- NOTE | 2021-06-13 17:52 | CONS ---
CONSULTATION This is a 50-year-old pleasant gentleman who has been admitted with a new onset of a wound on his plantar aspect of the right transmetatarsal foot with callus formation noted on the plantar aspect of the foot. The patient came with high fever and chills. The patient has been admitted under the care of Infectious Disease for IV antibiotic. The patient had a left transmetatarsal amputation done in the past at [place]. The patient has been coming to the Wound [facility] at [facility] for local wound care. The patient had a CT scan of the foot which showed osteomyelitis of the right foot. MEDICAL HISTORY: History of diabetes mellitus, history of hypertension, history of sleep apnea. SURGICAL HISTORY: Patient has had bilateral transmetatarsal amputation done in the past. PHYSICAL EXAMINATION: Patient was seen in his room. NECK: Supple. Trachea central. CHEST: Clear. ABDOMEN: Soft. Femorals are palpable. Dorsal pedis is palpable. The patient has a transmetatarsal of the right foot. There was abscess on the plantar aspect of the foot which opened up and also there is a callus on the plantar aspect with some redness noted. Left foot has a small wound on the transmetatarsal stump. PLAN: The patient will need debridement and deep culture. We will arrange for tomorrow in the operating room. The patient should be n.p.o. at midnight and we will arrange for surgery tomorrow. JORDAN / YOEL: [id number] /
[2021-06-13] MEDS: AMPICILLIN-SULBACTAM 3 GM in SODIUM CHLORIDE 0.9% 100 ML IVPB SCH (19:18)
[2021-06-13] MEDS: DULoxetine HCL 60 MG CAPSULE.DR PO SCH (21:49)
[2021-06-13] MEDS: ALPRAZolam 1 MG TAB PO PRN (22:08)
--- NOTE | 2021-06-13 22:53 | P.PN ---
Subjective This is a pleasant 50 years old male with past medical history of diabetes mellitus, deep venous thrombosis on Coumadin, his DVT was more than 10 years ago, GERD, hypertension, sleep apnea on CPAP/BiPAP, neuropathy involving all extremities, anxiety and depression He was sent from his Dr. Persaud office for diabetic infection, right foot since Wednesday. He is status post bilateral toe amputation Lisa he has 1 inch longitudinal ulcer and the lateral distal foot stump with some purulent discharge and some yellowin the surrounding area with redness, warmth and swelling extending up to the mid to right leg. No much tenderness He denies any other complaints, no chest pain or dyspnea. No change in urine or bowel habits. His grape picker is Dr. Sparks, he status post bariatric surgery on 12/2019, since then his diabetes is better controlled and his hemoglobin A1c as he states was 4.43 months ago, he uses 1 injection once weekly He denies smoking, alcohol or illicit drugs No depression or suicidal ideation He has sleep apnea and uses CPAP at home and his sister will bring him his machine to the hospital Vital signs stable Labs reviewed showed an unremarkable CBC, BMP and liver enzymes. MAPS was checked and he is on Xanax twice a day 06/12/2021 Patient right leg warmth and swelling is better today. His right foot stump is in a dressing for his distal lateral wound with still purulent discharge. Vitals are stable. Creatinine is normal. Low potassium replaced. The patient is afebrile Ultrasound of the leg is negative for DVT Patient remains on normal saline at 75 mL/h and IV vancomycin Wound culture is pending 06/13/2021 Patient clinically is improving as his right leg cellulitis is significantly improvement however his infection is more localized to the distal foot stump Hemodynamically stable Wound culture is growing Streptococcus agalactiae, sensitive E. coli and presumptive staph aureus He of the foot with contrast showing extensive multiloculated abscess with underlying osteomyelitis Patient is planned for surgical debridement tomorrow Objective - Vital Signs Vital signs: Vital Signs Temp 98.6 F 06/13/21 11:04 Pulse 74 06/13/21 11:04 Resp 18 06/13/21 11:04 BP 151/88 06/13/21 11:04 Pulse Ox 97 06/13/21 11:04 Intake & Output 06/12/21 06/13/21 06/13/21 18:59 06:59 18:59 Intake Total 500 1200 Output Total 1000 Balance 500 1200 -1000 Weight 120.202 kg Intake: Intake, IV Titration 500 900 Amount Cefepime 2 gm In Sodium 100 Chloride 0.9% 100 ml @ 25 mls/hr IVPB Q8HR [facility] Rx# :[id number] Sodium Chloride 0.9% 1, 300 000 ml @ 75 mls/hr IV . [id number] [facility] Rx#:[id number] Vancomycin 2,000 mg In 500 500 Sodium Chloride 0.9% 500 ml 500 ml @ 167 mls/hr IVPB Q8H [facility] Rx#: [id number] Oral 300 Output: Urine 1000 Other: Voiding Method Toilet Urinal # Voids 1 - Exam GENERAL: The patient is alert and oriented x3, not in any acute distress. Well developed, well nourished. HEENT: Pupils are round and equally reacting to light. EOMI. No scleral icterus. No conjunctival pallor. Normocephalic, atraumatic. No pharyngeal erythema. No thyromegaly. CARDIOVASCULAR: S1 and S2 present. No murmurs, rubs, or gallops. PULMONARY: Chest is clear to auscultation, no wheezing or crackles. ABDOMEN: Soft, nontender, nondistended, normoactive bowel sounds. No palpable organomegaly. MUSCULOSKELETAL: No joint swelling or deformity. -EXTREMITIES: No cyanosis, clubbing, or pedal edema. Right foot swollen, red and tender NEUROLOGICAL: Gross neurological examination did not reveal any focal deficits. SKIN: No rashes. No petechiae - Labs CBC & Chem 7: 06/13/21 05:13 06/13/21 05:13 Labs: Abnormal Lab Results - Last 24 Hours (Table) 06/13/21 06/13/21 Range/Units 05:13 05:13 WBC 3.7 L (3.8-10.6) k/uL RBC 3.59 L (4.30-5.90) m/uL Hgb 11.8 L (13.0-17.5) gm/dL Hct 35.1 L (39.0-53.0) % Lymphocytes # 0.9 L (1.0-4.8) k/uL Calcium 8.3 L (8.7-10.3) mg/dL Microbiology - Last 24 Hours (Table) 06/11/21 12:42 Blood Culture - Preliminary Blood No Growth after 24 hours 06/11/21 12:42 Gram Stain - Preliminary Foot - Right Wound Culture - Preliminary Strep agalactiae - (group b) Gram Neg Bacilli Assessment and Plan Assessment: Right diabetic foot infection and cellulitis, rule out osteomyelitis Diabetes mellitus History of deep venous thrombosis , more than 5 years ago History of GERD Hypertension History of bilateral toe amputation. 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 Continue with antibiotics and consult infectious disease team. Currently is on IV vancomycin Vascular surgery evaluation Continue gentle hydration Labs and medication were reviewed.. Continue same treatment. Continue with symptomatic treatment. Resume home medication. Monitor lytes and vitals. DVT and GI prophylaxis. Further recommendations depends on the clinical course of the patient DVT prophylaxis: Continue with subcutaneous heparin for DVT prophylaxis GI Prophylaxis: Pepcid PT/OT: Prognosis is guarded
[2021-06-14] MEDS: AMPICILLIN-SULBACTAM 3 GM in SODIUM CHLORIDE 0.9% 100 ML IVPB SCH ×5 (01:08→23:54)
[2021-06-14 06:33] LABS: African American GFR (CKD) >90 (>60 ml/min/1.73 sqM); Anion Gap 5 mmol/L; Blood Urea Nitrogen 16 mg/dL (9-20); Calcium 8.7 mg/dL (8.4-10.2); Carbon Dioxide 31 mmol/L (22-30); Chloride 105 mmol/L (98-107); Glucose 106 mg/dL (74-99); Non-African American GFR(CKD) >90 (>60 ml/min/1.73 sqM); Potassium 3.7 mmol/L (3.5-5.1); Sodium 141 mmol/L (137-145)
[2021-06-14] MEDS: VANCOMYCIN 2,000 MG in SODIUM CHLORIDE 0.9% 500 ML 500 ML IVPB SCH ×2 (08:34→15:17)
[2021-06-14] MEDS: carvediloL 12.5 MG TAB PO SCH ×2 (08:34→17:12)
[2021-06-14] MEDS: PREGABALIN 75 MG CAP PO SCH ×2 (08:34→20:21)
[2021-06-14] MEDS: HEPARIN SODIUM,PORCINE/PF 5,000 UNIT/0.5 ML SYRINGE SQ SCH ×2 (08:34→20:21)
[2021-06-14] MEDS: FAMOTIDINE 20 MG/2 ML VIAL IV SCH ×2 (08:34→20:21)
[2021-06-14] MEDS: CALCIUM CARBONATE 500 MG CHEWABLE PO SCH ×3 (08:34→20:21)
[2021-06-14] MEDS: FLUoxetine HCL 20 MG CAP PO SCH (08:34)
[2021-06-14] MEDS ORDERED: MIDAZOLAM 2 MG/2 ML VIAL ONE (11:44)
[2021-06-14] MEDS ORDERED: PROPOFOL 10 MG/ML 20 ML VIAL IV ONE (11:44)
[2021-06-14] MEDS ORDERED: fentaNYL (PF) 50 MCG/ML 2 ML AMP ONE (11:44)
[2021-06-14] MEDS ORDERED: KETAMINE 10 MG/ML 20 ML VIAL ONE (11:44)
[2021-06-14] MEDS ORDERED: LIDOCAINE 1% (PF) 10 MG/ML (30 ML SDV) SQ ONE (11:47)
[2021-06-14] MEDS ORDERED: SODIUM CHLORIDE 0.9% 1,000 ML IV ONE (11:47)
[2021-06-14] MEDS ORDERED: HYDROmorphone 0.5 MG/0.5 ML SYRINGE IVP ONE (12:24)
[2021-06-14 12:29] LABS: Glucose,Whole Blood 117 mg/dL (75-99)
--- NOTE | 2021-06-14 12:41 | OP ---
OPERATIVE REPORT PREOPERATIVE DIAGNOSIS: Infected callus, right foot plantar aspect, with open wound on the dorsal aspect of the foot. Plantar aspect wound callus is 1 x 1 x 2 cm. Dorsum is 2 x 2 x 2 cm. OPERATION: Excision of the infected callus, plantar aspect of the right dorsal aspect of the foot and debridement of the wound on the dorsal aspect of the foot. This patient has a history of transmetatarsal amputation done in the past. The patient had a wound on the plantar aspect of the foot which was infected and there was an open wound on the dorsal aspect of the foot with devitalized tissue. DESCRIPTION OF THE PROCEDURE: Under local IV sedation using 1% lidocaine, the infected callus was excised using a knife down to subcutaneous tissue and plantar fascia. There were some bleeding points which were electrocoagulated. All the devitalized tissue was removed. Then the right foot plantar aspect has an open wound with devitalized tissue. Using a curette we removed all the devitalized tissue. Devitalized tissue was sent for culture and sensitivity. Wound was irrigated with saline. Aquacel Silver rope was applied to the wound. Post wound debridement, wound on the dorsal aspect of the foot was 2 x 2 x 2 cm and Aquacel Silver rope was applied to the wound. PLAN: Continue the IV antibiotic and change the dressing with Aquacel Silver rope every other day. MMODL / IJN: [id number] /
[2021-06-14] MEDS: SODIUM CHLORIDE 0.9% 1,000 ML IV SCH ×2 (13:26→20:22)
[2021-06-14] MEDS ORDERED: VANCOMYCIN TROUGH DUE 1 EACH MISC MISCELLANE ONE (14:00)
--- NOTE | 2021-06-14 16:36 | PN ---
PROGRESS NOTE DATE OF SERVICE: 06/14/2021 REASON FOR FOLLOWUP: Right diabetic foot infection with underlying abscess and osteomyelitis, acute. INTERVAL HISTORY: The patient is afebrile. The patient was taken to OR, status post debridement of the right foot wound. The patient tolerated the procedure. Deep culture has been obtained. Patient denies having any chest pain, shortness of breath or cough. No abdominal pain or diarrhea. PHYSICAL EXAMINATION: Blood pressure 147/74 with a pulse of 74, temperature 97.4. He is 95% on room air. GENERAL DESCRIPTION: General description is a middle-aged male up in the bed in no distress. RESPIRATORY SYSTEM: Unlabored breathing. Clear to auscultation anteriorly. HEART: S1, S2. Regular rate and rhythm. ABDOMEN: Soft. No tenderness. Right foot is currently dressed. No obvious drainage on the dressing. LABS: BUN of 16, creatinine 0.74. Vancomycin trough is elevated. Cultures with E coli and presumptive Staph aureus, more likely MSSA. DIAGNOSTIC IMPRESSION AND PLAN: Patient with right diabetic foot infection with multiple pathogens. Culture is not yet final, though high risk of nephrotoxicity with elevated vancomycin trough. Will discontinue vancomycin and keep the patient on Unasyn. He will need a PICC line for outpatient antibiotic. Continue with supportive care. MMODL / IJN: [id number] /
--- NOTE | 2021-06-14 17:13 | P.PN ---
Subjective This is a pleasant 50 years old male with past medical history of diabetes mellitus, deep venous thrombosis on Coumadin, his DVT was more than 10 years ago, GERD, hypertension, sleep apnea on CPAP/BiPAP, neuropathy involving all extremities, anxiety and depression He was sent from his Dr. Persaud office for diabetic infection, right foot since Wednesday. He is status post bilateral toe amputation Lisa he has 1 inch longitudinal ulcer and the lateral distal foot stump with some purulent discharge and some yellowin the surrounding area with redness, warmth and swelling extending up to the mid to right leg. No much tenderness He denies any other complaints, no chest pain or dyspnea. No change in urine or bowel habits. His hat measurer is Dr. Sparks, he status post bariatric surgery on 12/2019, since then his diabetes is better controlled and his hemoglobin A1c as he states was 4.43 months ago, he uses 1 injection once weekly He denies smoking, alcohol or illicit drugs No depression or suicidal ideation He has sleep apnea and uses CPAP at home and his sister will bring him his machine to the hospital Vital signs stable Labs reviewed showed an unremarkable CBC, BMP and liver enzymes. MAPS was checked and he is on Xanax twice a day 06/12/2021 Patient right leg warmth and swelling is better today. His right foot stump is in a dressing for his distal lateral wound with still purulent discharge. Vitals are stable. Creatinine is normal. Low potassium replaced. The patient is afebrile Ultrasound of the leg is negative for DVT Patient remains on normal saline at 75 mL/h and IV vancomycin Wound culture is pending 06/13/2021 Patient clinically is improving as his right leg cellulitis is significantly improvement however his infection is more localized to the distal foot stump Hemodynamically stable Wound culture is growing Streptococcus agalactiae, sensitive E. coli and presumptive staph aureus He of the foot with contrast showing extensive multiloculated abscess with underlying osteomyelitis Patient is planned for surgical debridement tomorrow 06/14/2021 Patient is status post wound debridement of his right stump. Today is postop day #0. Hemodynamically stable. Labs are stable and creatinine normal. Wound culture is growing multiple organisms including Streptococcus agalactiae, E. coli which is sensitive and presumptive staph aureus . However after debridement vancomycin was stopped and patient was started on Unasyn Patient will need On IV antibiotics upon discharge. Continued on normal saline at 75 mL/h Objective - Vital Signs Vital signs: Vital Signs Temp 97.4 F L 06/14/21 12:16 Pulse 74 06/14/21 12:44 Resp 14 06/14/21 12:44 BP 147/74 06/14/21 12:44 Pulse Ox 95 06/14/21 12:44 Intake & Output 06/13/21 06/14/21 06/14/21 18:59 06:59 18:59 Intake Total 1100 100 100 Output Total 1000 5 Balance 100 100 95 Weight 120.202 kg Intake: IV 100 Intake, IV Titration 1100 Amount Cefepime 2 gm In Sodium 100 Chloride 0.9% 100 ml @ 25 mls/hr IVPB Q8HR [facility] Rx# :[id number] Vancomycin 2,000 mg In 1000 Sodium Chloride 0.9% 500 ml 500 ml @ 167 mls/hr IVPB Q8H LISA Rx#: [id number] Oral 100 Output: Urine 1000 Estimated Blood Loss 5 Other: Voiding Method Toilet Urinal # Voids 2 # Bowel Movements 0 - Exam GENERAL: The patient is alert and oriented x3, not in any acute distress. Well developed, well nourished. HEENT: Pupils are round and equally reacting to light. EOMI. No scleral icterus. No conjunctival pallor. Normocephalic, atraumatic. No pharyngeal erythema. No thyromegaly. CARDIOVASCULAR: S1 and S2 present. No murmurs, rubs, or gallops. PULMONARY: Chest is clear to auscultation, no wheezing or crackles. ABDOMEN: Soft, nontender, nondistended, normoactive bowel sounds. No palpable organomegaly. MUSCULOSKELETAL: No joint swelling or deformity. -EXTREMITIES: No cyanosis, clubbing, or pedal edema. Right foot open wound status post debridement with a dressing is in place NEUROLOGICAL: Gross neurological examination did not reveal any focal deficits. SKIN: No rashes. No petechiae - Labs CBC & Chem 7: 06/13/21 05:13 06/14/21 05:36 Labs: Abnormal Lab Results - Last 24 Hours (Table) 06/14/21 06/14/21 Range/Units 05:36 12:28 Carbon Dioxide 31 H (22-30) mmol/L Glucose 106 H (74-99) mg/dL POC Glucose (mg/dL) 117 H (75-99) mg/dL Microbiology - Last 24 Hours (Table) 06/11/21 12:42 Blood Culture - Preliminary Blood No Growth after 48 hours 06/11/21 12:42 Gram Stain - Preliminary Foot - Right Wound Culture - Preliminary Strep agalactiae - (group b) Escherichia coli Presumptive Staph aureus Assessment and Plan Assessment: Right diabetic foot infection and cellulitis, , possible osteomyelitis, is post-debridement on 06/14 Diabetes mellitus History of deep venous thrombosis , more than 5 years ago History of GERD Hypertension History of bilateral toe amputation. 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 Continue with antibiotics and consult infectious disease team. Change IV vancomycin to Unasyn Continue gentle hydration Labs and medication were reviewed.. Continue same treatment. Continue with symptomatic treatment. Resume home medication. Monitor lytes and vitals. DVT and GI prophylaxis. Further recommendations depends on the clinical course of the patient DVT prophylaxis: Continue with subcutaneous heparin for DVT prophylaxis GI Prophylaxis: Pepcid PT/OT: Prognosis is guarded
[2021-06-14] MEDS: HYDROcodone/APAP 5-325MG 1 EACH TAB PO PRN ×2 (18:18→22:23)
[2021-06-14] MEDS: DULoxetine HCL 60 MG CAPSULE.DR PO SCH (20:21)
[2021-06-14] MEDS: ALPRAZolam 1 MG TAB PO PRN (22:19)
[2021-06-15] MEDS: AMPICILLIN-SULBACTAM 3 GM in SODIUM CHLORIDE 0.9% 100 ML IVPB SCH ×3 (05:38→17:20)
[2021-06-15 06:58] LABS: African American GFR (CKD) >90 (>60 ml/min/1.73 sqM); Anion Gap 3 mmol/L; Blood Urea Nitrogen 15 mg/dL (9-20); Calcium 8.7 mg/dL (8.4-10.2); Carbon Dioxide 35 mmol/L (22-30); Chloride 103 mmol/L (98-107); Glucose 99 mg/dL (74-99); Non-African American GFR(CKD) >90 (>60 ml/min/1.73 sqM); Potassium 3.5 mmol/L (3.5-5.1); Sodium 141 mmol/L (137-145)
[2021-06-15 07:01] LABS: Basophils % (A) 1 %; Eosinophils # (A) 0.2 k/uL (0-0.7); Eosinophils % (A) 4 %; HCT 34.8 % (39.0-53.0); HGB 11.8 gm/dL (13.0-17.5); Lymphocytes # (A) 1.2 k/uL (1.0-4.8); Lymphocytes % (A) 29 %; MCH 32.6 pg (25.0-35.0); MCV 95.9 fL (80.0-100.0); Mean Platelet Volume 6.7; Monocytes # (A) 0.2 k/uL (0-1.0); Monocytes % (A) 6 %; Neutrophils # (A) 2.4 k/uL (1.3-7.7); Neutrophils % (A) 57 %; Platelet Count 329 k/uL (150-450); RBC 3.63 m/uL (4.30-5.90); RDW 12.6 % (11.5-15.5); WBC 4.1 k/uL (3.8-10.6)
[2021-06-15] MEDS: carvediloL 12.5 MG TAB PO SCH ×2 (07:47→17:20)
[2021-06-15] MEDS: PREGABALIN 75 MG CAP PO SCH ×2 (07:47→20:33)
[2021-06-15] MEDS: FLUoxetine HCL 20 MG CAP PO SCH (07:47)
[2021-06-15] MEDS: FAMOTIDINE 20 MG/2 ML VIAL IV SCH ×2 (07:48→20:34)
[2021-06-15] MEDS: HEPARIN SODIUM,PORCINE/PF 5,000 UNIT/0.5 ML SYRINGE SQ SCH ×2 (07:48→20:33)
[2021-06-15] MEDS: CALCIUM CARBONATE 500 MG CHEWABLE PO SCH ×3 (07:48→20:34)
[2021-06-15] MEDS: HYDROcodone/APAP 5-325MG 1 EACH TAB PO PRN ×2 (07:59→17:21)
--- NOTE | 2021-06-15 11:27 | P.PN ---
Subjective This is a pleasant 50 years old male with past medical history of diabetes mellitus, deep venous thrombosis on Coumadin, his DVT was more than 10 years ago, GERD, hypertension, sleep apnea on CPAP/BiPAP, neuropathy involving all extremities, anxiety and depression He was sent from his Dr. Persaud office for diabetic infection, right foot since Wednesday. He is status post bilateral toe amputation Lisa he has 1 inch longitudinal ulcer and the lateral distal foot stump with some purulent discharge and some yellowin the surrounding area with redness, warmth and swelling extending up to the mid to right leg. No much tenderness He denies any other complaints, no chest pain or dyspnea. No change in urine or bowel habits. His dairy products maker is Dr. Sparks, he status post bariatric surgery on 12/2019, since then his diabetes is better controlled and his hemoglobin A1c as he states was 4.43 months ago, he uses 1 injection once weekly He denies smoking, alcohol or illicit drugs No depression or suicidal ideation He has sleep apnea and uses CPAP at home and his sister will bring him his machine to the hospital Vital signs stable Labs reviewed showed an unremarkable CBC, BMP and liver enzymes. MAPS was checked and he is on Xanax twice a day 06/12/2021 Patient right leg warmth and swelling is better today. His right foot stump is in a dressing for his distal lateral wound with still purulent discharge. Vitals are stable. Creatinine is normal. Low potassium replaced. The patient is afebrile Ultrasound of the leg is negative for DVT Patient remains on normal saline at 75 mL/h and IV vancomycin Wound culture is pending 06/13/2021 Patient clinically is improving as his right leg cellulitis is significantly improvement however his infection is more localized to the distal foot stump Hemodynamically stable Wound culture is growing Streptococcus agalactiae, sensitive E. coli and presumptive staph aureus He of the foot with contrast showing extensive multiloculated abscess with underlying osteomyelitis Patient is planned for surgical debridement tomorrow 06/14/2021 Patient is status post wound debridement of his right stump. Today is postop day #0. Hemodynamically stable. Labs are stable and creatinine normal. Wound culture is growing multiple organisms including Streptococcus agalactiae, E. coli which is sensitive and presumptive staph aureus . However after debridement vancomycin was stopped and patient was started on Unasyn Patient will need On IV antibiotics upon discharge. Continued on normal saline at 75 mL/h 06/15/2021 patient is status post debridement of his right foot stump yesterday. Today he is doing well. He is vitals are stable. Labs from today are checked and they looked normal 1 culture is noted and has multiple organisms including the staph aureus which came back as MSSA covered by the Unasyn prescribed by the also he is on normal saline Slightly on the PICC line and IV antibiotics upon discharge Objective - Vital Signs Vital signs: Vital Signs Temp 97.8 F 06/15/21 04:45 Pulse 62 06/15/21 04:45 Resp 16 06/15/21 04:45 BP 164/85 06/15/21 04:45 Pulse Ox 96 06/15/21 04:45 Intake & Output 06/14/21 06/15/21 06/15/21 18:59 06:59 18:59 Intake Total 700 1490 Output Total 5 1200 Balance 695 290 Weight 120.202 kg Intake: IV 100 Intake, IV Titration 600 950 Amount Ampicillin-Sulbactam 3 gm 100 200 In Sodium Chloride 0.9% 100 ml @ 200 mls/hr IVPB Q6HR L[facility] Rx#:[id number] Sodium Chloride 0.9% 1, 750 000 ml @ 75 mls/hr IV . [id number] LISA Rx#:[id number] Vancomycin 2,000 mg In 500 Sodium Chloride 0.9% 500 ml 500 ml @ 167 mls/hr IVPB Q8H LISA Rx#: [id number] Oral 540 Output: Urine 1200 Estimated Blood Loss 5 Other: Voiding Method Toilet Urinal # Voids 4 # Bowel Movements 0 - Exam GENERAL: The patient is alert and oriented x3, not in any acute distress. Well developed, well nourished. HEENT: Pupils are round and equally reacting to light. EOMI. No scleral icterus. No conjunctival pallor. Normocephalic, atraumatic. No pharyngeal erythema. No thyromegaly. CARDIOVASCULAR: S1 and S2 present. No murmurs, rubs, or gallops. PULMONARY: Chest is clear to auscultation, no wheezing or crackles. ABDOMEN: Soft, nontender, nondistended, normoactive bowel sounds. No palpable organomegaly. MUSCULOSKELETAL: No joint swelling or deformity. -EXTREMITIES: No cyanosis, clubbing, or pedal edema. Right foot open wound status post debridement with a dressing is in place NEUROLOGICAL: Gross neurological examination did not reveal any focal deficits. SKIN: No rashes. No petechiae - Labs CBC & Chem 7: 06/15/21 06:05 06/15/21 06:05 Labs: Abnormal Lab Results - Last 24 Hours (Table) 06/14/21 06/15/21 06/15/21 Range/Units 12:28 06:05 06:05 RBC 3.63 L (4.30-5.90) m/uL Hgb 11.8 L (13.0-17.5) gm/dL Hct 34.8 L (39.0-53.0) % Carbon Dioxide 35 H (22-30) mmol/L POC Glucose (mg/dL) 117 H (75-99) mg/dL Microbiology - Last 24 Hours (Table) 06/14/21 12:14 Tissue Culture - Preliminary Foot - Right 06/14/21 12:14 Anaerobic Culture - Preliminary Foot - Right 06/11/21 12:42 Gram Stain - Final Foot - Right Wound Culture - Final Strep agalactiae - (group b) Escherichia coli Staphylococcus aureus 06/11/21 12:42 Blood Culture - Preliminary Blood No Growth after 72 hours Assessment and Plan Assessment: Right diabetic foot infection and cellulitis, , possible osteomyelitis, is post- debridement on 06/14 Diabetes mellitus History of deep venous thrombosis , more than 5 years ago History of GERD Hypertension History of bilateral toe amputation. 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 Continue with antibiotics and consult infectious disease team. Change IV vancomycin to Unasyn Continue gentle hydration Labs and medication were reviewed.. Continue same treatment. Continue with symptomatic treatment. Resume home medication. Monitor lytes and vitals. DVT and GI prophylaxis. Further recommendations depends on the clinical course of the patient DVT prophylaxis: Continue with subcutaneous heparin for DVT prophylaxis GI Prophylaxis: Pepcid PT/OT: Prognosis is guarded
[2021-06-15] MEDS: SODIUM CHLORIDE 0.9% 1,000 ML IV SCH (13:28)
--- NOTE | 2021-06-15 19:04 | PN ---
PROGRESS NOTE DATE OF SERVICE: 06/15/2021 REASON FOR FOLLOWUP: Right diabetic foot infection with underlying osteomyelitis. INTERVAL HISTORY: The patient is afebrile. The patient is breathing comfortably. Denies having any chest pain or shortness of breath or cough. No abdominal pain. Overall pain to the right foot is currently controlled. PHYSICAL EXAMINATION: Blood pressure is 126/77 with a pulse of 69, temperature 98. He is 97% on room air. GENERAL DESCRIPTION: General description is a middle-aged male up in the bed in no distress. RESPIRATORY SYSTEM: Unlabored breathing. Clear to auscultation anteriorly. HEART: S1, S2. Regular rate and rhythm. ABDOMEN: Soft. No tenderness. Right foot is currently dressed. No obvious drainage on the dressing. LABS: Hemoglobin 11.9, white count 4.1, BUN of 15, creatinine 0.78. Culture is predominantly strep, E coli and MSSA. DIAGNOSTIC IMPRESSION AND PLAN: Patient with a right diabetic foot infection with underlying osteomyelitis. He will need a PICC line for outpatient IV antibiotics. Currently on Unasyn. Total duration of antibiotics for at least 6 weeks with close outpatient followup. MMODL / IJN: [id number] /
[2021-06-15] MEDS: DULoxetine HCL 60 MG CAPSULE.DR PO SCH (20:34)
[2021-06-15] MEDS: ALPRAZolam 1 MG TAB PO PRN (21:27)
[2021-06-16] MEDS: AMPICILLIN-SULBACTAM 3 GM in SODIUM CHLORIDE 0.9% 100 ML IVPB SCH ×4 (00:02→16:15)
[2021-06-16] MEDS: SODIUM CHLORIDE 0.9% 1,000 ML IV SCH (02:37)
[2021-06-16 04:46] VITALS: TEMP 98.1
[2021-06-16 05:41] LABS: INR 1.1 (<1.2); Prothrombin Time 11.4 sec (9.0-12.0)
[2021-06-16] MEDS: PREGABALIN 75 MG CAP PO SCH (08:13)
[2021-06-16] MEDS: FAMOTIDINE 20 MG/2 ML VIAL IV SCH (08:13)
[2021-06-16] MEDS: carvediloL 12.5 MG TAB PO SCH (08:13)
[2021-06-16] MEDS: CALCIUM CARBONATE 500 MG CHEWABLE PO SCH ×2 (08:13→16:15)
[2021-06-16] MEDS: HEPARIN SODIUM,PORCINE/PF 5,000 UNIT/0.5 ML SYRINGE SQ SCH (08:14)
[2021-06-16] MEDS: FLUoxetine HCL 20 MG CAP PO SCH (08:14)
[2021-06-16 12:10] VITALS: BP 130/78; PULSE 68; RESP 18
--- NOTE | 2021-06-16 13:32 | P.PN ---
Progress Note - Text 50-year-old gentleman patient has history of transmetatarsal amputation of the right foot. Patient had infected callus on the plantar aspect the foot and there with tunneling noted to the dorsal suspect the foot with oh abscess formation patient had a excision of the callus and wound debridement. Sent the tissue for deep culture patient is an IV antibiotic today we have changed her dressing using Aquacel silver rope no active bleeding noted noted redness noted plan is a patient going home we will follow to the wound clinic on Wednesday to see Dr. Persaud
[2021-06-16] MEDS ORDERED: LIDOCAINE 1% INJ 10MG/ML (20 ML MDV) ONE (14:08)
--- NOTE | 2021-06-16 15:59 | IR ---
EXAMINATION TYPE: IR cvc insert >=5 years DATE OF EXAM: 06/16/2021 COMPARISON: NONE CLINICAL HISTORY: Infection Needs long-term intravenous access for antibiotics. PROCEDURE: Hand hygiene obtained with soap and water and alcohol-based hand rub. After informed consent, the skin overlying the left basilic vein was localized with ultrasound and no henry to be compressible and patent. An ultrasound image was obtained and submitted on the patient's c guillen. The overlying skin was prepped and draped and Lidocaine was used for local anesthesia. A skin rodney was made with a scalpel. Access was gained to the vein under ultrasound guidance with a 21 gau ge needle and a 0.018 inch wire was advanced. Access site was dilated with Peel-Away sheath and cath eter tailored to the appropriate length and advanced such that the distal tip is at the cavoatrial ju nction. Spot image was obtained verifying placement. Catheter was fixed to the skin and a sterile d ressing was placed following hemostasis. Catheter was aspirated and flushed with saline. Patient wa s discharged in stable condition without complication.Maximal barrier technique is utilized. Ultraso und image is documented on the chart. Ultrasound used with sterile technique. Fluoro time and fluoroscopic images submitted to document procedure: 0.9 minutes fluoroscopy time, 15 4 intraoperative images document the procedure IMPRESSION: STATUS POST ULTRASOUND AND FLUOROSCOPIC GUIDED PICC LINE PLACEMENT, READY FOR USE. THIS PROCEDURE WAS PERFORMED BY THE UNDERSIGNED.
--- NOTE | 2021-06-16 17:02 | PN ---
PROGRESS NOTE DATE OF SERVICE: 06/16/2021 REASON FOR FOLLOWUP: Right diabetic foot infection with underlying osteomyelitis. INTERVAL HISTORY: The patient is afebrile. The patient is feeling better, breathing comfortably. No chest pain, shortness of breath or cough. No abdominal pain. Pain to the right foot is currently controlled. PHYSICAL EXAMINATION: Blood pressure 130/70 with a pulse of 68, temperature 98.1. He is 97% on room air. General description is a middle-aged male up in the chair in no distress. Respiratory system: Unlabored breathing, clear to auscultation anteriorly. Heart S1, S2. Regular rate and rhythm. Abdomen soft, no tenderness. Right foot is currently dressed, no drainage on the dressing. LABS: Culture positive for MSSA strep, E. coli. DIAGNOSTIC IMPRESSION AND PLAN: Patient with right diabetic foot infection with underlying osteomyelitis. Culture positive for MSSA, E coli and Strep. He is on Unasyn 3 g q.6h to continue for another 4-6 weeks to finish his course of therapy and close outpatient followup. MMODL / IJN: [id number] /
--- NOTE | 2021-06-16 20:07 | P.DS ---
Providers Date of admission: 06/11/21 14:03 Expected date of discharge: 06/16/21 Attending physician: Raul Todd Consults: 06/11/21 13:57 Consult Physician Urgent Consulting Provider: Geoff Briceno Consult Reason/Comments: Right foot wound, right lower leg cellulitis Do you want consulting provider notified?: Yes 06/11/21 13:58 Consult Physician Urgent Consulting Provider: Chito Gomez Consult Reason/Comments: Right foot wound/ cellulitis Do you want consulting provider notified?: Yes 06/11/21 15:06 Consult Physician Urgent Consulting Provider: Ken Persaud Consult Reason/Comments: fight foot infection Do you want consulting provider notified?: Yes Primary care physician: Willard Julito [facility] Course: Hospital course: This is a pleasant 50 years old male with past medical history of diabetes mellitus, deep venous thrombosis on Coumadin, his DVT was more than 10 years ago, GERD, hypertension, sleep apnea on CPAP/BiPAP, neuropathy involving all extremities, anxiety and depression, follows with Dr. Vila. He was sent from his Dr. Persaud office for diabetic infection, right foot since Wednesday. He is status post bilateral toe amputation . he has 1 inch longitudinal ulcer and the lateral distal foot stump with some purulent discharge and some yellowin the surrounding area with redness, warmth and swelling extending up to the mid to right leg. No much tenderness He denies any other complaints, no chest pain or dyspnea. No change in urine or bowel habits. His mission commander is Dr. Sparks, he status post bariatric surgery on 12/2019, since then his diabetes is better controlled and his hemoglobin A1c as he states was 4.43 months ago, he uses 1 injection once weekly He denies smoking, alcohol or illicit drugs No depression or suicidal ideation He has sleep apnea and uses CPAP at home Vital signs stable 06/12/2021 Patient right leg warmth and swelling is better today. His right foot stump is in a dressing for his distal lateral wound with still purulent discharge. Vitals are stable. Creatinine is normal. Low potassium replaced. The patient is afebrile Ultrasound of the leg is negative for DVT Patient remains on normal saline at 75 mL/h and IV vancomycin Wound culture is pending 06/13/2021 Patient clinically is improving as his right leg cellulitis is significantly improvement however his infection is more localized to the distal foot stump Hemodynamically stable Wound culture is growing Streptococcus agalactiae, sensitive E. coli and presumptive staph aureus He of the foot with contrast showing extensive multiloculated abscess with underlying osteomyelitis Patient is planned for surgical debridement tomorrow 06/14/2021 Patient is status post wound debridement of his right stump. Today is postop day #0. Hemodynamically stable. Labs are stable and creatinine normal. Wound culture is growing multiple organisms including Streptococcus agalactiae, E. coli which is sensitive and presumptive staph aureus . However after debridement vancomycin was stopped and patient was started on Unasyn Patient will need On IV antibiotics upon discharge. Continued on normal saline at 75 mL/h 06/15/2021 patient is status post debridement of his right foot stump yesterday. Today he is doing well. He is vitals are stable. Labs from today are checked and they looked normal 1 culture is noted and has multiple organisms including the staph aureus which came back as MSSA covered by the Unasyn prescribed by the also he is on normal saline Slightly on the PICC line and IV antibiotics upon discharge 06/16/2021: Sitting up in a chair. Comfortable. Oral intake good. Had a bowel movement. Pain control. PICC line place. Cultures positive for MSSA, E. coli, strep. He is on Unasyn 3 g every 6. We will continue to follow the 4-6 weeks per infectious disease. Follow with ID. Care was discussed with the patient. Questions answered. To follow-up and wound care center. Wound dressing as per ID and surgery On examination: 98.1, 68, 18, 1:30/78, 97% room air Lungs: Clear, respiratory rate normal Cardiovascular: first seconds are normal, no edema Psych, AO 3, mood affect normal Extremities: Bilateral toe amputation. Wound on the right foot stump with dressing. Investigations: WBC 4.1 hemoglobin 11.8 platelets 329 potassium 3.5 creatinine 0.78 Wound culture: Multiple organisms Blood cultures negative Assessment plan: -Right foot acute osteomyelitis involving the fourth metatarsal@is amputated and., but phone secondary to diabetes cultures positive for multiple organisms including MSSA, E. coli, strep. 4-6 weeks of Unasyn 3 g every 6 -Right foot stump abscess Status post I&D. IV Unasyn -Diabetes mellitus type 2 -GERD Prilosec 40 mg daily -Essential hypertension Tribenzor 40-10-20 5/2 tablet daily. Coreg 25 mg twice a day -Obstructive sleep apnea uses CPAP -Diabetic peripheral neuropathy Lyrica 1 mg twice a day -Anxiety depression otherwise specified Xanax 1 mg daily at bedtime, Cymbalta 60 mg daily at bedtime Prozac 20 mg daily Patient Condition at Discharge: Stable Plan - Discharge Summary Discharge Rx Participant: No New Discharge Prescriptions: Continue Pregabalin [Lyrica] 150 mg PO BID FLUoxetine HCL [PROzac] 20 mg PO DAILY DULoxetine HCL [Cymbalta] 60 mg PO HS Fluticasone Nasal Diagonal [Flonase Nasal Diagonal] 1 spray EA NOSTRIL BID PRN PRN Reason: Nasal Congestion Olmesartan/Amlodipin/Hcthiazid [Tribenzor 40-10-25 mg Tablet] 0.5 tab PO DAILY Exenatide Microspheres [Bydureon Pen] 2 mg SQ SEARS ALPRAZolam [Xanax] 1 mg PO HS carvediloL 25 mg PO BID Omeprazole [PriLOSEC] 40 mg PO DAILY #30 capsule. Ergocalciferol [Vitamin D2 (1250 Mcg = 09883 Iu)] 50,000 unit PO SEARS Calcium Citrate 250 mg PO TID Multivitamin [Multivitamins Adult Gummies] 1 tab PO DAILY Zinc 50 mg PO DAILY Vascepa 1gm 1 gm PO BID ALPRAZolam [Xanax] 1 mg PO DAILY PRN PRN Reason: Anxiety Ferrous Sulfate [Iron (65 MG Elemental)] 325 mg PO DAILY Discharge Medication List FLUoxetine HCL [PROzac] 20 mg PO DAILY 05/28/16 [History] Pregabalin [Lyrica] 150 mg PO BID 05/28/16 [History] DULoxetine HCL [Cymbalta] 60 mg PO HS 06/29/16 [History] ALPRAZolam [Xanax] 1 mg PO HS 02/15/19 [History] Exenatide Microspheres [Bydureon Pen] 2 mg SQ SEARS 02/15/19 [History] Fluticasone Nasal Diagonal [Flonase Nasal Diagonal] 1 spray EA NOSTRIL BID PRN 02/15/19 [History] Olmesartan/Amlodipin/Hcthiazid [Tribenzor 40-10-25 mg Tablet] 0.5 tab PO DAILY 02/15/19 [History] carvediloL 25 mg PO BID 12/28/19 [History] Omeprazole [PriLOSEC] 40 mg PO DAILY #30 capsule. 01/02/20 [Rx] Ergocalciferol [Vitamin D2 (1250 Mcg = 49574 Iu)] 50,000 unit PO SEARS 12/20/20 [History] ALPRAZolam [Xanax] 1 mg PO DAILY PRN 06/11/21 [History] Calcium Citrate 250 mg PO TID 06/11/21 [History] Ferrous Sulfate [Iron (65 MG Elemental)] 325 mg PO DAILY 06/11/21 [History] Multivitamin [Multivitamins Adult Gummies] 1 tab PO DAILY 06/11/21 [History] Vascepa 1gm 1 gm PO BID 06/11/21 [History] Zinc 50 mg PO DAILY 06/11/21 [History] Follow up Appointment(s)/Referral(s): Willard Vila MD [Primary Care Provider] - 06/17/21 4:00 pm [facility], [NON-STAFF] - 1 Week [facility]fusion [NON-STAFF] - 1 Week Geoff Briceno MD [STAFF PHYSICIAN] - 07/07/21 2:00 pm Patient Instructions/Handouts: Diabetic Foot Ulcers (DC), Peripherally Inserted Central Catheters and Midline Catheters (DC) Activity/Diet/Wound Care/Special Instructions: Patient already has appointment on Wednesday with wound clinic IV antibiotic will be delivered to patient's house tonight Discharge Disposition: HOME WITH HOME HEALTH SERVICES
[2021-06-16] MEDS ORDERED: FAMOTIDINE 20 MG TAB PO SCH (21:00)
== END 2021-06-16 16:57 | disposition home health service (06) | DRG 638 ==
LOC: EC 11:23 → 5NMEDONC 14:03
PROVIDERS: ADMIT Hospitalist; ATTEND Hospitalist
PROC: 02HV33Z Insertion of Infusion Device into Superior Vena Cava, Percutaneous Approach (ICD-10-PCS; 2021-06-11)
PROC: B5181ZA Fluoroscopy of Superior Vena Cava using Low Osmolar Contrast, Guidance (ICD-10-PCS; 2021-06-11)
PROC: B548ZZA Ultrasonography of Superior Vena Cava, Guidance (ICD-10-PCS; 2021-06-11)
PROC: 0HBMXZZ Excision of Right Foot Skin, External Approach (ICD-10-PCS; principal; 2021-06-14 08:08)
DX: E11.628 Type 2 diabetes mellitus with other skin complications (principal); L03.115 Cellulitis of right lower limb; M86.171 Other acute osteomyelitis, right ankle and foot; E11.40 Type 2 diabetes mellitus with diabetic neuropathy, unspecified; I10 Essential (primary) hypertension; B95.61 Methicillin susceptible Staphylococcus aureus infection as the cause of diseases classified elsewhere; F32.9 Major depressive disorder, single episode, unspecified; B95.5 Unspecified streptococcus as the cause of diseases classified elsewhere; E66.9 Obesity, unspecified; F41.9 Anxiety disorder, unspecified; G47.30 Sleep apnea, unspecified; Z20.822 Contact with and (suspected) exposure to COVID-19; I25.2 Old myocardial infarction; Z79.899 Other long term (current) drug therapy; Z86.718 Personal history of other venous thrombosis and embolism; Z86.73 Personal history of transient ischemic attack (TIA), and cerebral infarction without residual deficits; Z87.891 Personal history of nicotine dependence; Z89.431 Acquired absence of right foot; Z98.84 Bariatric surgery status; Z88.8 Allergy status to other drugs, medicaments and biological substances; Z89.422 Acquired absence of other left toe(s); Z89.421 Acquired absence of other right toe(s); Z68.32 Body mass index [BMI] 32.0-32.9, adult; Z86.14 Personal history of Methicillin resistant Staphylococcus aureus infection
CPT/HCPCS: 36415; 36573; 80048; 80053; 80076; 80202; 83036; 83605; 83735; 85025; 85610; 85652; 85730; 86140; 87040; 87070; 87075; 87077; 87186; 87205; 93970; 96374; 96375; 99284

== ENCOUNTER → 2021-07-31 | Outpatient (CLI) | payer MEDICARE, OTHER ==
--- NOTE | 2021-07-31 20:11 | SFUN ---
SLEEP CENTER FOLLOW UP NOTE DATE OF SERVICE: 07/31/2021 This 50-year-old gentleman has been followed in Sleep Center for treatment of obstructive sleep apnea-hypopnea syndrome. The patient continues to use his CPAP equipment every night for the whole night. No snoring with the machine. The patient has a Dream Station 1 CPAP unit from [employer], which has been recalled. He did not receive any paperwork from [employer] about the recall. He has lost 100 pounds since his previous sleep study. I checked his CPAP unit. Range of the pressure is 8 to 10, usage 29/30 nights for more than 4 hours, average 7.6 hours per night. Mask fit 100%. Apnea-hypopnea index only 2.5, which is absolutely perfect. [place] Sleepiness Scale today is 4. MEDICATIONS: 1. Alprazolam 1 mg once a day. 2. Duloxetine 60 mg once a day. 3. Exenatide Microspheres Pen 10 injection every Wednesday. 4. Fluoxetine 20 mg once a day. 5. Ferrous sulfate 325 mg once a day. 6. Fluticasone nasal spray as needed. 7. Amlodipine 0.5 mg once a day. 8. Omeprazole 40 mg once a day. 9. Lyrica 150 mg twice a day. 10.Carvedilol 25 mg twice a day. 11.Additional supplements, including fish oil, ergocalciferol, calcium citrate. PHYSICAL EXAMINATION: GENERAL: Pleasant patient in no distress. VITAL SIGNS: BP 121/76, HR 80, RR 15, height 6 feet 4 inches, weight 271.8, temperature 96.9, oxygen saturation at room air 94%. HEENT: PERRLA, EOMI, evaluation of oropharynx showed tongue protrudes midline. Extremely low position of soft palate; Mallampati IV. NECK: Supple, no JVD. Thyroid is not palpable. LUNGS: Clear to percussion and to auscultation. Good air exchange. No wheezing or rhonchi. HEART: S1, S2 regular. No murmurs, gallops, or rubs. ABDOMEN: Slightly obese. EXTREMITIES: No clubbing or cyanosis. PHOTOVOLTAIC TESTING TECHNICIAN: Awake, alert, and oriented X3. Cranial nerves 2 to 7 intact. There is no fasciculation or atrophy. noted. No focal deficits observed. IMPRESSION: 1. Obstructive sleep apnea-hypopnea syndrome. Patient demonstrated practically 100% compliance with treatment, benefitting from treatment. Normal respiration on CPAP. 2. Mild obesity. After bariatric surgery the patient lost about 75 to 100 pounds of weight. 3. Hypertension. 4. Diabetes mellitus. 5. History of peripheral neuropathy secondary to diabetes. 6. 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 The patient follows with the wound center. 7. Hyperlipidemia. 8. Seasonal allergies. 9. History of anxiety. PLAN: 1. Repeat polysomnogram because the patient lost about 100 pounds of weight and is at present on the [employer] Dream Station 1, treatment which was recalled. 2. Patient will continue to use PAP equipment every night for the whole night. 3. Sleep hygiene with regular time in bed for at least 7-1/2 to 8 hours. 4. Precautions related to driving. No driving if feeling sleepiness. 5. I will maintain all necessary prescription for PAP supplies including mask, tube, filters. 6. Watching weight. 7. Follow-up visit in 6 months or earlier if patient has any problems. Thank you very much for allowing me to participate in the management of your patient. Sincerely, Herbert Lynn MD, PhD, FAASM Diplomat of [place] [employer] Sleep Medicine Board of [place] [employer] Freedom Of Information Officer of [facility] MMODL / АЛЕКСАНДРN: [id number] /
== END | disposition home or self-care (01) ==
LOC: SLEEP 11:35
PROVIDERS: ATTEND Internal Medicine
DX: G47.33 Obstructive sleep apnea (adult) (pediatric) (principal); E66.9 Obesity, unspecified; I10 Essential (primary) hypertension; E11.9 Type 2 diabetes mellitus without complications; E11.42 Type 2 diabetes mellitus with diabetic polyneuropathy; E78.5 Hyperlipidemia, unspecified

== ENCOUNTER → 2022-05-06 | Outpatient (CLI) | payer MEDICARE, OTHER ==
[2022-05-06 13:24] VITALS: BP 157/79; PULSE 96; TEMP 98.2; BMI 31.8
--- NOTE | 2022-05-06 13:45 | P.BASOAP ---
Subjective Progress Note Date: 05/06/22 He has bilateral foot boots. He lost 20 pounds in 1 year. This is his lowest weight. Hgb 4.8. Diabetes type II. Satisfied with results. Lost 100 pounds. Has dysphagia. EGD and colonoscopy for screen. Objective - Vital Signs Vital signs: Vital Signs Temp 98.2 F 05/06/22 13:17 Pulse 96 05/06/22 13:17 Resp BP 157/79 05/06/22 13:17 Pulse Ox FiO2 Intake & Output 05/05/22 05/06/22 05/06/22 18:59 06:59 18:59 Weight 116.573 kg Assessment/Plan Plan: Date: 05/06/22 Initial Weight: 154.63 kg Initial BMI: 42.3 Current Weight: 116.573 kg Current BMI: 31.8 Type of Surgery: Total Volume in Band: Previous Volume: Volume Removed: Volume Added: Band Size:
== END | disposition home or self-care (01) ==
LOC: BARWHC3 12:59
PROVIDERS: ATTEND Surgery Plastic and Reconstructive Surgery
DX: S91.301A Unspecified open wound, right foot, initial encounter (principal); X58.XXXA Exposure to other specified factors, initial encounter
CPT/HCPCS: 99211

== ENCOUNTER → 2022-05-13 | Outpatient (CLI) | payer MEDICARE, OTHER ==
[2022-05-13 12:27] LABS: INR 0.9 (<1.2); Partial Thromboplastin Time 24.5 sec (22.0-30.0)
[2022-05-13 19:02] LABS: HCT 42.5 % (39.6-50.0); HGB 14.4 g/dL (13.0-17.0); MCH 31.7 pg (27.0-32.0); MCHC 33.9 g/dL (32.0-37.0); MCV 93.6 fL (80.0-97.0); Mean Platelet Volume 11.3 fL (9.5-12.2); NRBC Per 100 WBC 0 /100 WBCS (0.0-0.0); Platelet Count 171 X 10*3/uL (140-440); RBC 4.54 X 10*6/uL (4.40-5.60)
[2022-05-13 22:35] LABS: % Iron Saturation 35.89 (15.00-50.00); ALT 33 U/L (10-49); AST 34 U/L (14-35); African American GFR (CKD) 121.2 (60.0-200.0); Albumin 3.8 g/dL (3.8-4.9); Albumin/Globulin Ratio 1.36 (1.60-3.17); Alkaline Phosphatase 156 U/L (41-126); BUN/Creat Ratio 13.38 Ratio (12.00-20.00); Blood Urea Nitrogen 10.6 mg/dL (9.0-27.0); Calcium 9.1 mg/dL (8.7-10.3); Carbon Dioxide 24.3 mmol/L (20.0-27.5); Chloride 104 mmol/L (96-109); Globulin 2.8 g/dL (1.6-3.3); Glucose 104 mg/dL (70-110); Iron 104 ug/dL (65-175); Magnesium 2.1 mg/dL (1.5-2.4); Non-African American GFR(CKD) 104.6 (60.0-200.0); Phosphorus 3.4 mg/dL (2.4-5.1); Potassium 3.5 mmol/L (3.5-5.5); Sodium 143 mmol/L (135-145); Total Iron Binding Capacity 290 ug/dL (228-460); Total Protein 6.5 g/dL (6.2-8.2)
[2022-05-13 22:42] LABS: Chol/HDL Ratio 5.04 Ratio; LDL Cholesterol,Calculated 134.7 mg/dL (0.0-131.0); Prealbumin 24.1 mg/dL (18.0-42.0)
[2022-05-14 16:05] LABS: Zinc, Serum 99 ug/dL (60-130)
[2022-05-15 05:50] LABS: Vitamin A 57 ug/dL (38-106)
== END | disposition home or self-care (01) ==
LOC: LABWHC1 11:40
PROVIDERS: ATTEND Surgery Plastic and Reconstructive Surgery
DX: D50.8 Other iron deficiency anemias (principal); D50.9 Iron deficiency anemia, unspecified; E44.0 Moderate protein-calorie malnutrition; E44.1 Mild protein-calorie malnutrition; E45 Retarded development following protein-calorie malnutrition; E55.9 Vitamin D deficiency, unspecified; K74.1 Hepatic sclerosis; N19 Unspecified kidney failure; T56.894A Toxic effect of other metals, undetermined, initial encounter; E46 Unspecified protein-calorie malnutrition; K50.90 Crohn's disease, unspecified, without complications
CPT/HCPCS: 36415; 80053; 80061; 82306; 82525; 82607; 82728; 82746; 83540; 83550; 83735; 83970; 84100; 84134; 84255; 84425; 84443; 84590; 84630; 85027; 85610; 85730

== ENCOUNTER 2022-06-01 06:37 | Day surgery (SDC) | payer MEDICARE, OTHER ==
[2022-05-28 12:10] VITALS: BMI 31.2
[2022-06-01 06:53] VITALS: RESP 16; TEMP 96.8
[2022-06-01 07:07] LABS: Glucose,Whole Blood 114 mg/dL (70-110)
[2022-06-01] MEDS ORDERED: LACTATED RINGERS 1,000 ML IV ONE (07:09)
[2022-06-01] MEDS ORDERED: LACTATED RINGERS 1,000 ML IV SCH (07:09)
--- NOTE | 2022-06-01 07:31 | P.GSHP ---
History of Present Illness H&P Date: 06/01/22 CHIEF COMPLAINT: GERD and colon screen HISTORY OF PRESENT ILLNESS: The patient is a 51-year-old male who presents with gastroesophageal reflux disease and need for colon screen. Upper and lower endoscopy were offered for further evaluation and management. PAST MEDICAL HISTORY: Please see list. PAST SURGICAL HISTORY: Please see list. MEDICATIONS: Please see list. ALLERGIES: Please see list. SOCIAL HISTORY: No illicit drug use FAMILY HISTORY: No reports of Crohn disease or ulcerative colitis. REVIEW OF ORGAN SYSTEMS: CONSTITUTIONAL: No reports of fevers or chills. GI: Denies any blood in stools or constipation. PHYSICAL EXAM: VITAL SIGNS: Stable GENERAL: Well-developed pleasant in no acute distress. HEENT: No scleral icterus. Extraocular movements grossly intact. Moist buccal mucosa. NECK: Supple without lymphadenopathy. CHEST: Unlabored respirations. Equal bilateral excursions. CARDIOVASCULAR: Regular rate and rhythm. Distal 2+ pulses. ABDOMEN: Soft, nondistended. MUSCULOSKELETAL: No clubbing, cyanosis, or edema. ASSESSMENT: 1. Gastroesophageal reflux disease 2. Colon screen. PLAN: 1. Recommend proceeding with an upper and lower endoscopy Past Medical History Past Medical History: CVA/TIA, Diabetes Mellitus, Deep Vein Thrombosis (DVT), GERD/Reflux, Hypertension, Myocardial Infarction (PA), Neurologic Disorder, Sleep Apnea/CPAP/BIPAP Additional Past Medical History / Comment(s): Casts on both feet due to pressure wounds from toe amputations, follows with Wound Clinic. Neuropathy in all four extremities which led to removal of all ten of his toes. Hx DVT in left leg and in right shoulder secondary to PICC Line. Stress test showed "Mini heart attack", 02/15/19, states no residual effects. CPAP use. Last Myocardial Infarction Date:: 02/15/19 History of Any Multi-Drug Resistant Organisms: MRSA Date of last positivie culture/infection: 02/11/22 MDRO Source:: Left foot Past Surgical History: Bariatric Surgery, Orthopedic Surgery Additional Past Surgical History / Comment(s): EGD. Bilateral feet all digits amputated. Staph infection in left thigh secondary to abcess removed surgically, multiple debridments and skin graft surgeries to bilateral feet, gastric bypass 01-01-20. Past Anesthesia/Blood Transfusion Reactions: Previous Problems w/ Anesthesia, Postoperative Nausea & Vomiting (PONV) Additional Past Anesthesia/Blood Transfusion Reaction / Comment(s): Had "high fever during surgery 04/2019, [facility]." (Documented previous to 05/28/22, unknown by who - anesthesia record obtained from then, no mention of temp or malignant hyperthermia.) Patient states no problems since. Past Psychological History: Anxiety, Depression Smoking Status: Current every day smoker Past Alcohol Use History: Rare Additional Past Alcohol Use History / Comment(s): Had quit smoking in 2003 but recently started smoking again, 1 ppd. Past Drug Use History: Marijuana Additional Drug Use History / Comment(s): Currently uses Marijuana daily. Aware no use 24 hrs prior to procedure. - Past Family History Father Family Medical History: Congestive Heart Failure (CHF), CVA/TIA Additional Family Medical History / Comment(s): at age 79. Mother Family Medical History: Cancer, COPD Additional Family Medical History / Comment(s): Leukemia, at age 80. Medications and Allergies Home Medications Medication Instructions Recorded Confirmed Type FLUoxetine HCL [PROzac] 20 mg PO QAM 05/28/16 06/01/22 History Pregabalin [Lyrica] 150 mg PO BID 05/28/16 06/01/22 History DULoxetine HCL [Cymbalta] 60 mg PO HS 06/29/16 06/01/22 History ALPRAZolam [Xanax] 1 mg PO HS 02/15/19 06/01/22 History Exenatide Microspheres [Bydureon 2 mg SQ SEARS 02/15/19 06/01/22 History Pen] Fluticasone Nasal [place] [Flonase 1 spray EA NOSTRIL BID PRN 02/15/19 06/01/22 History Nasal [place]] Olmesartan/Amlodipin/Hcthiazid 0.5 tab PO DAILY 02/15/19 06/01/22 History [Tribenzor 40-10-25 mg Tablet] carvediloL 25 mg PO BID 12/28/19 06/01/22 History Ergocalciferol [Vitamin D2 (1250 50,000 unit PO SEARS 12/20/20 06/01/22 History Mcg = 62107 Iu)] Ferrous Sulfate [Iron (65 MG 325 mg PO DAILY 06/11/21 06/01/22 History Elemental)] Multivitamin [Multivitamins Adult 1 tab PO DAILY 06/11/21 06/01/22 History Gummies] Vascepa 1gm 1 gm PO BID 06/11/21 06/01/22 History Zinc 50 mg PO DAILY 06/11/21 06/01/22 History Omeprazole [PriLOSEC] 40 mg PO QAM 05/28/22 06/01/22 History icosapent ethyL [Vascepa] 1 gm PO DAILY 05/28/22 06/01/22 History Allergies Allergy/AdvReac Type Severity Reaction Status Date / Time adhesive tape Allergy Rash/Hives Verified 06/01/22 07:09 Surgical - Exam Vital Signs Temp Pulse Resp BP Pulse Ox 96.8 F L 76 16 131/77 98 06/01/22 06:52 06/01/22 06:52 06/01/22 06:52 06/01/22 06:52 06/01/22 06:52 Results - Labs Abnormal Lab Results - Last 24 Hours (Table) 06/01/22 Range/Units 07:05 POC Glucose (mg/dL) 114 H (70-110) mg/dL
[2022-06-01] MEDS ORDERED: PROPOFOL 10 MG/ML 20 ML VIAL IV ONE (07:32)
[2022-06-01] MEDS ORDERED: LIDOCAINE 2% INJ 20 MG/ML (2 ML VIAL) ONE (07:32)
--- NOTE | 2022-06-01 07:49 | P.PCN ---
Date of Procedure: 06/01/22 Description of Procedure: PREOPERATIVE DIAGNOSIS: Dysphagia. Nausea with vomiting. POSTOPERATIVE DIAGNOSIS: Dysphagia. Morbid obesity. Gastrojejunal stricture without chronic ulcer without perforation Gastritis OPERATION: Esophagogastrojejunoscopy with balloon dilatation from 18 to 20 mm. Esophagogastrojejunoscopy with cold forceps biopsy gastric pouch SURGEON: Elizabeth Kolb MD ANESTHESIA: MAC. INDICATIONS: The patient is a 51-year-old fmale who presents with a history of dysphagia, including new-onset nausea and vomiting. Benefits and risks of the procedure were described. Informed consent was obtained. DESCRIPTION: The patient was brought into the endoscopy suite and laid in the left lateral decubitus position. After a timeout was confirmed, the procedure was initiated. An Olympus gastroscope was passed along the posterior oropharynx down to the distal esophagus where the squamocolumnar junction was unremarkable. The gastric pouch was entered. A gastrojejunal stricture of 18 mm was found as the adult gastroscope was 9.5 mm in size. A TVShow Time balloon dilator was placed through the scope. Final insufflation up to 20 mm was performed with a total of 2 minutes. The scope was advanced up to 60 cm from the incisors into the Silke limb. The mucosa of the gastrojejunal anastomosis was intact. No chronic gastrojejunal marginal ulcer was encountered. Moderate gastritis along the gastric pouch was identified with biopsies obtained using cold forceps. No full-thickness injury was encountered. The GI tract was desufflated. The patient tolerated the procedure well. FINDINGS: Squamocolumnar junction unremarkable at 50 cm. Stricture of approximately 18 mm encountered. No chronic gastrojejunal ulceration encountered, at 55 cm Successful balloon dilatation to 15 mm. Gastric pouch 5 cm Moderate gastritis of gastric pouch. Biopsies obtained RECOMMENDATIONS: Upper endoscopy as needed.
[2022-06-01 08:35] VITALS: BP 130/77; PULSE 76
--- NOTE | 2022-06-01 09:30 | P.PCN ---
Date of Procedure: 06/01/22 Description of Procedure: PREOPERATIVE DIAGNOSIS: Personal history of colon polyps Family history malignant colon polyps Colonoscopy screening POSTOPERATIVE DIAGNOSIS: Personal history of colon polyps Family history malignant colon polyps Colonoscopy screening Tubular adenoma hepatic flexure Tubular adenoma transverse colon Sigmoid diverticulosis Internal hemorrhoids, grade 2 OPERATION: Colonoscopy to the ileocecal valve and appendiceal orifice, cecum Colonoscopy with hot snare polypectomy Colonoscopy with cold forceps biopsy SURGEON: Elizabeth Kolb MD. ANESTHESIA: MAC. INDICATIONS: The patient is an 66-year-old male who presents family history of malignant colon polyps and personal history of colon polyps. Last colonoscopy 5 years. Benefits and risks were described and informed consent was obtained. DESCRIPTION OF PROCEDURE: The patient had undergone Sutab prep. The patient had been brought into the operating room and laid in the left lateral decubitus position. After adequate intravenous sedation, the rectum was examined with 2% lidocaine jelly. The prostate was unremarkable. External hemorrhoids were encountered. The rectal tone was within normal limits. No lesions were palpated in the rectal vault. An Olympus colonoscope was advanced until the cecum, ileocecal valve and appendiceal orifice were clearly viewed. The prep was fair. Sigmoid diverticulosis was encountered. Colonic polyps were found and removed. No evidence of focal colitis was found. Retroflexion of the scope demonstrated grade 2 internal hemorrhoids without active bleeding or inflammation. The colon was desufflated. The patient had tolerated the procedure well. Withdrawal time was over 6 minutes. FINDINGS: Aronchick preparation quality scale 1 (1-5) Internal hemorrhoids, grade 3 with recent inflammation and bleeding External hemorrhoids, grade 4. No arteriovenous malformations. Sigmoid diverticulosis Removal of 2 polyps: - Snare polypectomy 20 cm from the anal verge, 5 mm tubulovillous adenoma polyp. - Snare polypectomy 39 cm from the anal verge, 8 mm flat villous adenoma polyp. - Snare polypectomy 50 cm from the anal verge, 12 mm flat villous adenoma polyp. - Cold forceps biopsy at 30 cm from the anal verge, 4 mm polyp. - Cold forceps biopsy at 40 cm from the anal verge, 5 mm polyp. - Cold forceps biopsy at 45 cm from the anal verge, 4 mm polyp. - Cold forceps biopsy at 55 cm from the anal verge, 3 mm polyp. - Cold forceps biopsy at 60 cm from the anal verge, 4 mm polyp. - Cold forceps biopsy at 65 cm from the anal verge, 3 mm polyp. - Cold forceps biopsy at 75 cm from the anal verge, 4 mm polyp. - Cold forceps biopsy at mid transverse colon, 5 mm polyp. - Cold forceps biopsy at proximal transverse colon, 4 mm polyp. No focal colitis. RECOMMENDATIONS: Given severity of tubular adenomas, recommend repeat colonoscopy 1 year. Plan - Discharge Summary Discharge Rx Participant: No New Discharge Prescriptions: Continue Pregabalin [Lyrica] 150 mg PO BID FLUoxetine HCL [PROzac] 20 mg PO QAM DULoxetine HCL [Cymbalta] 60 mg PO HS Fluticasone Nasal Brice [Flonase Nasal Brice] 1 spray EA NOSTRIL BID PRN PRN Reason: Nasal Congestion Olmesartan/Amlodipin/Hcthiazid [Tribenzor 40-10-25 mg Tablet] 0.5 tab PO DAILY Exenatide Microspheres [Bydureon Pen] 2 mg SQ SEARS ALPRAZolam [Xanax] 1 mg PO HS carvediloL 25 mg PO BID Ergocalciferol [Vitamin D2 (1250 Mcg = 50560 Iu)] 50,000 unit PO SEARS Multivitamin [Multivitamins Adult Gummies] 1 tab PO DAILY Zinc 50 mg PO DAILY icosapent ethyL [Vascepa] 1 gm PO DAILY Vascepa 1gm 1 gm PO BID Ferrous Sulfate [Iron (65 MG Elemental)] 325 mg PO DAILY Omeprazole [PriLOSEC] 40 mg PO QAM Discharge Medication List FLUoxetine HCL [PROzac] 20 mg PO QAM 05/28/16 [History] Pregabalin [Lyrica] 150 mg PO BID 05/28/16 [History] DULoxetine HCL [Cymbalta] 60 mg PO HS 06/29/16 [History] ALPRAZolam [Xanax] 1 mg PO HS 02/15/19 [History] Exenatide Microspheres [Bydureon Pen] 2 mg SQ SEARS 02/15/19 [History] Fluticasone Nasal Brice [Flonase Nasal Brice] 1 spray EA NOSTRIL BID PRN 02/15/19 [History] Olmesartan/Amlodipin/Hcthiazid [Tribenzor 40-10-25 mg Tablet] 0.5 tab PO DAILY 02/15/19 [History] carvediloL 25 mg PO BID 12/28/19 [History] Ergocalciferol [Vitamin D2 (1250 Mcg = 28825 Iu)] 50,000 unit PO SEARS 12/20/20 [History] Ferrous Sulfate [Iron (65 MG Elemental)] 325 mg PO DAILY 06/11/21 [History] Multivitamin [Multivitamins Adult Gummies] 1 tab PO DAILY 06/11/21 [History] Vascepa 1gm 1 gm PO BID 06/11/21 [History] Zinc 50 mg PO DAILY 06/11/21 [History] Omeprazole [PriLOSEC] 40 mg PO QAM 05/28/22 [History] icosapent ethyL [Vascepa] 1 gm PO DAILY 05/28/22 [History] Follow [place]ment(s[place] Patient Instructions/Handouts: *Surgery [facility] - (Anesthesia) Endoscopy Discharge Instructions, Colorectal Polyps (GEN), Colonoscopy (DC), Upper Endoscopy (DC), Esophageal Dilation (DC) Activity/Diet/Wound Care/Special Instructions: Repeat colonoscopy in one year, 2022 Discharge Disposition: HOME SELF-CARE
== END 2022-06-01 09:32 | disposition home or self-care (01) ==
LOC: ORWHC2ENDO 06:37
PROVIDERS: ATTEND Surgery Plastic and Reconstructive Surgery
DX: Z12.11 Encounter for screening for malignant neoplasm of colon (principal); D12.3 Benign neoplasm of transverse colon; K63.5 Polyp of colon; K57.30 Diverticulosis of large intestine without perforation or abscess without bleeding; K64.1 Second degree hemorrhoids; K29.50 Unspecified chronic gastritis without bleeding; K91.89 Other postprocedural complications and disorders of digestive system; E66.01 Morbid (severe) obesity due to excess calories; Z68.31 Body mass index [BMI] 31.0-31.9, adult; K21.9 Gastro-esophageal reflux disease without esophagitis; Z86.010 Personal history of colon polyps; Z83.71 Family history of colonic polyps; E11.69 Type 2 diabetes mellitus with other specified complication; E78.5 Hyperlipidemia, unspecified; I10 Essential (primary) hypertension; Z86.718 Personal history of other venous thrombosis and embolism; Z91.09 Other allergy status, other than to drugs and biological substances; Z79.899 Other long term (current) drug therapy; Z98.84 Bariatric surgery status; Z87.891 Personal history of nicotine dependence; Z80.6 Family history of leukemia; Z82.49 Family history of ischemic heart disease and other diseases of the circulatory system; Z82.3 Family history of stroke; Z83.6 Family history of other diseases of the respiratory system
CPT/HCPCS: 88305; 45380; 45385; 43239; 43249; J2704; J2001; C1726

== ENCOUNTER → 2022-07-01 | Outpatient (CLI) | payer MEDICARE, OTHER ==
[2022-07-01 13:14] VITALS: BP 124/80; PULSE 81; TEMP 97.9; BMI 32.3
--- NOTE | 2022-07-01 13:31 | P.BASOAP ---
Subjective Progress Note Date: 07/01/22 He feels better after upper endoscopy. He had lower scope with multiple polyps removed. He reports not liking the pills. He wants liquid prep only. He has a gastric bypass. Pathology reviewed. Repeat scope in 1 year due to high risk polyps and poor prep. His blood sugar is well controlled with Hgb A1c of 4.8%. He is taking probiotics Allign is helping with his gas bloat. Objective - Vital Signs Vital signs: Vital Signs Temp 97.9 F 07/01/22 13:11 Pulse 81 07/01/22 13:11 Resp BP 124/80 07/01/22 13:11 Pulse Ox FiO2 Intake & Output 06/30/22 07/01/22 07/01/22 18:59 06:59 18:59 Weight 118.388 kg Assessment/Plan Plan: Date: 07/01/22 Initial Weight: 154.63 kg Initial BMI: 42.3 Current Weight: 118.388 kg Current BMI: 32.3 Type of Surgery: Total Volume in Band: Previous Volume: Volume Removed: Volume Added: Band Size:
== END | disposition home or self-care (01) ==
LOC: BARWHC3 12:48
PROVIDERS: ATTEND Surgery Plastic and Reconstructive Surgery
DX: Z48.815 Encounter for surgical aftercare following surgery on the digestive system (principal)
CPT/HCPCS: 99211

== ENCOUNTER → 2022-07-08 | Outpatient (CLI) | payer MEDICARE, OTHER ==
--- NOTE | 2022-07-08 13:53 | XR ---
Left foot HISTORY: L 97.522 3 views the left foot Patient is status post transmetatarsal amputation. There is soft tissue swelling present. Arthropathy changes are present. There is vascular calcifications within the soft tissues. Plantar calcaneal spu r is noted. Enthesophyte present at the insertion of Achilles tendon. Bone mineralization is reduced. No evident periostitis to suggest osteomyelitis. Impression: Soft tissue swelling, postop changes, osteopenia and underlying arthropathy.
== END | disposition home or self-care (01) ==
LOC: RADXRMAIN 11:11
PROVIDERS: ATTEND Nurse Practitioner Family
DX: E08.621 Diabetes mellitus due to underlying condition with foot ulcer (principal); L97.522 Non-pressure chronic ulcer of other part of left foot with fat layer exposed; L97.512 Non-pressure chronic ulcer of other part of right foot with fat layer exposed

== ENCOUNTER 2022-11-06 11:53 | Observation (INO) | payer MEDICARE, OTHER ==
--- NOTE | 2022-11-06 12:16 | ED ---
General Adult HPI - General Chief complaint: Wound/Laceration Stated complaint: diabetic wound, lt leg Time Seen by Provider: 11/06/22 12:04 Source: patient, RN notes reviewed Mode of arrival: ambulatory Limitations: no limitations - History of Present Illness Initial comments: Patient is a pleasant 52-year-old male presenting to the emergency department with concern for cellulitis. Patient was at wound center and advised by Dr. Keane to come to emergency department for IV antibiotics. Patient does have a wound on his left foot near area of previous amputation. Patient now has redness extending up his left leg. Patient has some discomfort in this region. Patient did have chills yesterday. Patient does have history of similar symptoms previously on the other leg that did involve an abscess. - Related Data Home Medications Medication Instructions Recorded Confirmed FLUoxetine HCL [PROzac] 20 mg PO QAM 05/28/16 11/06/22 Pregabalin [Lyrica] 150 mg PO BID 05/28/16 11/06/22 DULoxetine HCL [Cymbalta] 60 mg PO HS 06/29/16 11/06/22 ALPRAZolam [Xanax] 1 mg PO BID PRN 02/15/19 11/06/22 Exenatide Microspheres [Bydureon 2 mg SQ SEARS 02/15/19 11/06/22 Pen] Olmesartan/Amlodipin/Hcthiazid 0.5 tab PO DAILY 02/15/19 11/06/22 [Tribenzor 40-10-25 mg Tablet] carvediloL 25 mg PO BID 12/28/19 11/06/22 Ergocalciferol [Vitamin D2 (1250 50,000 unit PO SEARS 12/20/20 11/06/22 Mcg = 14207 Iu)] Ferrous Sulfate [Iron (65 MG 325 mg PO DAILY 06/11/21 11/06/22 Elemental)] Vascepa 1gm 1 gm PO BID 06/11/21 11/06/22 Zinc 50 mg PO DAILY 06/11/21 11/06/22 Omeprazole [PriLOSEC] 40 mg PO QAM 05/28/22 11/06/22 Ascorbic Acid [Vitamin C] 1,000 mg PO DAILY 11/06/22 11/06/22 Allergies Allergy/AdvReac Type Severity Reaction Status Date / Time adhesive tape Allergy Rash/Hives Verified 11/06/22 12:46 Review of Systems ROS Statement: Those systems with pertinent positive or pertinent negative responses have been documented in the HPI. ROS Other: All systems not noted in ROS Statement are negative. Constitutional: Reports: as per HPI, chills Eyes: Denies: eye pain ENT: Denies: ear pain Respiratory: Denies: cough Cardiovascular: Denies: chest pain Endocrine: Denies: fatigue Gastrointestinal: Denies: abdominal pain Genitourinary: Denies: dysuria Musculoskeletal: Denies: back pain Skin: Reports: as per HPI, rash Past Medical History Past Medical History: CVA/TIA, Diabetes Mellitus, Deep Vein Thrombosis (DVT), GERD/Reflux, Hypertension, Neurologic Disorder, Sleep Apnea/CPAP/BIPAP Additional Past Medical History / Comment(s): STATES OPEN WOULD ON LEFT FOOT, STATE DR. WEBER IS AWARE. 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 Bilateral feet all digits amputated. Staph infection in left thigh secondary to abcess removed surgically, multiple debridments and skin graft surgeries to bilateral feet, gastric bypass 01-01-20 Past Anesthesia/Blood Transfusion Reactions: Previous Problems w/ Anesthesia, Postoperative Nausea & Vomiting (PONV) Additional Past Anesthesia/Blood Transfusion Reaction / Comment(s): had "high fever last surgery 04/2019, [facility]" anesthesia record obtained from then, no mention of temp or malignant hyperthermia. Past Psychological History: Anxiety, Depression Smoking Status: Former smoker Past Alcohol Use History: Rare Past Drug Use History: Marijuana - Past Family History Father Family Medical History: Congestive Heart Failure (CHF), CVA/TIA Additional Family Medical History / Comment(s): at age 79. Mother Family Medical History: Cancer, COPD Additional Family Medical History / Comment(s): Leukemia, at age 80. General Exam Limitations: no limitations General appearance: alert, in no apparent distress Head exam: Present: normocephalic Eye exam: Present: normal appearance Neck exam: Present: normal inspection Respiratory exam: Present: normal lung sounds bilaterally Cardiovascular Exam: Present: regular rate, normal rhythm GI/Abdominal exam: Present: soft. Absent: tenderness Extremities exam: Present: other (Left anterior thomas with erythema to that area of the knee. Mild tenderness. Warmth is present. Left foot with previous amputations. There is wound distally approximately 3 x 3 cm, stages 2/3) Neurological exam: Present: alert Psychiatric exam: Present: normal affect, normal mood Skin exam: Present: erythema Course Vital Signs 11/06/22 11:59 Temperature 98.6 F Pulse Rate 83 Respiratory 20 Rate Blood Pressure 117/74 O2 Sat by Pulse 99 Oximetry Medical Decision Making - Medical Decision Making Was pt. sent in by a medical professional or institution (, PA, C D REACTOR OPERATOR, urgent care, hospital, or [facility]...) When possible be specific @ -Patient was sent from [facility], Dr. Keane Did you speak to anyone other than the patient for history (EMS, parent, family, police, friend...)? What history was obtained from this source @ -No Did you review nursing and triage notes (agree or disagree)? Why? @ -I reviewed and agree with nursing and triage notes Were old charts reviewed (outside hosp., previous admission, EMS record, old EKG, old radiological studies, urgent care reports/EKG's, [facility] records)? Report findings @ -No old charts were reviewed Differential Diagnosis (chest pain, altered mental status, abdominal pain women, abdominal pain men, vaginal bleeding, weakness, fever, dyspnea, syncope, headache, dizziness, GI bleed, back pain, seizure, CVA, palpatations, mental health)? @ -Differential Fever: Pneumonia, viral URI, endocarditis, myocarditis, pericarditis, otitis, sinusitis, peritonsillar Abscess, retropharyngeal Abscess, epiglottitis, peritonitis, appendicitis, Veronique cystitis, diverticulitis, hepatitis, colitis, UTI, PID, TOA, pyelonephritis, prostatitis, epididymitis, meningitis, encephalitis, pulmonary embolism, CVA, thyroid storm, pancreatitis, adrenal crisis, cavernous sinus thrombosis, this is not meant to be an all-inclusive list. EKG interpreted by me (3pts min.). @ -As above X-rays interpreted by me (1pt min.). @ -X-ray left foot and left tib-fib shows soft tissue changes CT interpreted by me (1pt min.). @ -None done U/S interpreted by me (1pt. min.). @ -None done What testing was considered but not performed or refused? (CT, X-rays, U/S, labs)? Why? @ -None What meds were considered but not given or refused? Why? @ -Considered IV antibiotics and this will be ordered Did you discuss the management of the patient with other professionals (professionals i.e. , PA, C D REACTOR OPERATOR, lab, RT, psych nurse, rn social services, biology manager, teacher, sailing officer, disability case manager)? Give summary @ -Case was discussed with Dr. Todd, who will admit covering Dr. Vila. He requests consult with Dr. Stone Was smoking cessation discussed for >3mins.? @ -No Was critical care preformed (if so, how long)? @ -No Were there social determinants of health that impacted care today? How? (Homelessness, low income, unemployed, alcoholism, drug addiction, transportation, low edu. Level, literacy, decrease access to med. care, fpc, rehab)? @ -No Was there de-escalation of care discussed even if they declined (Discuss DNR or withdrawal of care, Hospice)? DNR status @ -No What co-morbidities impacted this encounter? (DM, HTN, Smoking, COPD, CAD, Cancer, CVA, ARF, Chemo, Hep., AIDS, mental health diagnosis, sleep apnea, morbid obesity)? @ -Diabetic history with previous amputations Was patient admitted / discharged? Hospital course, mention meds given and route, prescriptions, significant lab abnormalities, going to OR and other pertinent info. @ -Patient reevaluated and updated. Patient will be admitted with infectious disease consult Undiagnosed new problem with uncertain prognosis? @ -No Drug Therapy requiring intensive monitoring for toxicity (Heparin, Nitro, Insulin, Cardizem)? @ -No Were any procedures done? @ -No Diagnosis/symptom? @ -Cellulitis left leg Acute, or Chronic, or Acute on Chronic? @ -Acute Uncomplicated (without systemic symptoms) or Complicated (systemic symptoms)? @ -Uncomplicated Side effects of treatment? @ -No Exacerbation, Progression, or Severe Exacerbation? @ -No Poses a threat to life or bodily function? How? (Chest pain, [place], [place], pneumonia, PE, COPD, DKA, ARF, appy, cholecystitis, CVA, Diverticulitis, Homicidal, Suicidal, threat to staff... and all critical care pts) @ -Potential threat to bodily function with worsening ulcer cellulitis for potential sepsis or potential amputation - Lab Data Result diagrams: 11/06/22 12:39 11/06/22 12:39 Lab Results 11/06/22 11/06/22 11/06/22 Range/Units 12:39 12:39 12:39 WBC 6.0 (3.8-10.6) k/uL RBC 3.99 L (4.30-5.90) m/uL Hgb 13.1 (13.0-17.5) gm/dL Hct 37.1 L (39.0-53.0) % MCV 93.1 (80.0-100.0) fL MCH 32.8 (25.0-35.0) pg MCHC 35.2 (31.0-37.0) g/dL RDW 13.4 (11.5-15.5) % Plt Count 136 L (150-450) k/uL MPV 9.8 Neutrophils % 65 % Lymphocytes % 20 % Monocytes % 9 % Eosinophils % 3 % Basophils % 1 % Neutrophils # 3.9 (1.3-7.7) k/uL Lymphocytes # 1.2 (1.0-4.8) k/uL Monocytes # 0.5 (0-1.0) k/uL Eosinophils # 0.2 (0-0.7) k/uL Basophils # 0.0 (0-0.2) k/uL Hyperchromasia Slight PT 9.9 (9.0-12.0) sec INR 0.9 (<1.2) APTT 26.0 (22.0-30.0) sec Sodium 139 (137-145) mmol/L Potassium 3.3 L (3.5-5.1) mmol/L Chloride 106 (98-107) mmol/L Carbon Dioxide 31 H (22-30) mmol/L Anion Gap 2 mmol/L BUN 13 (9-20) mg/dL Creatinine 0.74 (0.66-1.25) mg/dL Est GFR (CKD-EPI)AfAm >90 (>60 ml/min/1.73 sqM) Est GFR (CKD-EPI)NonAf >90 (>60 ml/min/1.73 sqM) Glucose 126 H (74-99) mg/dL Plasma Lactic Acid Charan (0.7-2.0) mmol/L Calcium 8.4 (8.4-10.2) mg/dL Total Bilirubin 0.7 (0.2-1.3) mg/dL AST 29 (17-59) U/L ALT 24 (4-49) U/L Alkaline Phosphatase 135 H (38-126) U/L Total Protein 7.7 (6.3-8.2) g/dL Albumin 3.8 (3.5-5.0) g/dL 11/06/22 Range/Units 12:39 WBC (3.8-10.6) k/uL RBC (4.30-5.90) m/uL Hgb (13.0-17.5) gm/dL Hct (39.0-53.0) % MCV (80.0-100.0) fL MCH (25.0-35.0) pg MCHC (31.0-37.0) g/dL RDW (11.5-15.5) % Plt Count (150-450) k/uL MPV Neutrophils % % Lymphocytes % % Monocytes % % Eosinophils % % Basophils % % Neutrophils # (1.3-7.7) k/uL Lymphocytes # (1.0-4.8) k/uL Monocytes # (0-1.0) k/uL Eosinophils # (0-0.7) k/uL Basophils # (0-0.2) k/uL Hyperchromasia PT (9.0-12.0) sec INR (<1.2) APTT (22.0-30.0) sec Sodium (137-145) mmol/L Potassium (3.5-5.1) mmol/L Chloride (98-107) mmol/L Carbon Dioxide (22-30) mmol/L Anion Gap mmol/L BUN (9-20) mg/dL Creatinine (0.66-1.25) mg/dL Est GFR (CKD-EPI)AfAm (>60 ml/min/1.73 sqM) Est GFR (CKD-EPI)NonAf (>60 ml/min/1.73 sqM) Glucose (74-99) mg/dL Plasma Lactic Acid Charan 0.9 (0.7-2.0) mmol/L Calcium (8.4-10.2) mg/dL Total Bilirubin (0.2-1.3) mg/dL AST (17-59) U/L ALT (4-49) U/L Alkaline Phosphatase (38-126) U/L Total Protein (6.3-8.2) g/dL Albumin (3.5-5.0) g/dL Disposition Clinical Impression: Cellulitis of left leg, Wound of foot Disposition: ADMITTED IP TO THIS HOSP Is patient prescribed a controlled substance at d/c from ED?: No Referrals: Willard Vila MD [Primary Care Provider] - 1-2 days Time of Disposition: 14:01
[2022-11-06 13:04] LABS: ALT 24 U/L (4-49); AST 29 U/L (17-59); African American GFR (CKD) >90 (>60 ml/min/1.73 sqM); Albumin 3.8 g/dL (3.5-5.0); Alkaline Phosphatase 135 U/L (38-126); Anion Gap 2 mmol/L; Blood Urea Nitrogen 13 mg/dL (9-20); Calcium 8.4 mg/dL (8.4-10.2); Carbon Dioxide 31 mmol/L (22-30); Chloride 106 mmol/L (98-107); Glucose 126 mg/dL (74-99); Non-African American GFR(CKD) >90 (>60 ml/min/1.73 sqM); Potassium 3.3 mmol/L (3.5-5.1); Sodium 139 mmol/L (137-145); Total Bilirubin 0.7 mg/dL (0.2-1.3); Total Protein 7.7 g/dL (6.3-8.2)
[2022-11-06 13:18] LABS: INR 0.9 (<1.2); Prothrombin Time 9.9 sec (9.0-12.0)
--- NOTE | 2022-11-06 13:19 | XR ---
EXAMINATION TYPE: XR tibia fibula LT DATE OF EXAM: 11/06/2022 COMPARISON: NONE HISTORY: Swelling and infection TECHNIQUE: Two views are submitted. FINDINGS: The osseous structures are intact. There is narrowing of the medial compartment the knee joint. Vascu lar calcifications are seen. Large calcaneal spurs. No destructive changes. IMPRESSION: 1. Arthropathy.
--- NOTE | 2022-11-06 13:20 | XR ---
EXAMINATION TYPE: XR foot complete LT DATE OF EXAM: 11/06/2022 COMPARISON: NONE HISTORY: Swelling TECHNIQUE: Three views are submitted. FINDINGS: Diffuse soft tissue swelling with large calcaneal spurs. Previous amputation noted. No overtly destru ctive osseous changes. IMPRESSION: 1. Diffuse soft tissue edema suggestion of ulcerations but no destructive changes seen diagnostic of osteomyelitis. 2. Postsurgical changes.
[2022-11-06 13:34] LABS: Basophils % (A) 1 %; Eosinophils # (A) 0.2 k/uL (0-0.7); Eosinophils % (A) 3 %; HCT 37.1 % (39.0-53.0); HGB 13.1 gm/dL (13.0-17.5); Hyperchromasia Slight; Lymphocytes # (A) 1.2 k/uL (1.0-4.8); Lymphocytes % (A) 20 %; MCH 32.8 pg (25.0-35.0); MCHC 35.2 g/dL (31.0-37.0); MCV 93.1 fL (80.0-100.0); Mean Platelet Volume 9.8; Monocytes # (A) 0.5 k/uL (0-1.0); Monocytes % (A) 9 %; Neutrophils # (A) 3.9 k/uL (1.3-7.7); Neutrophils % (A) 65 %; Platelet Count 136 k/uL (150-450); RBC 3.99 m/uL (4.30-5.90); RDW 13.4 % (11.5-15.5)
[2022-11-06] MEDS ORDERED: NALOXONE 0.4 MG/ML 1 ML VIAL IV PRN (14:02)
[2022-11-06] MEDS ORDERED: HYDROmorphone 0.5 MG/0.5 ML SYRINGE IVP PRN (14:02)
[2022-11-06] MEDS ORDERED: ACETAMINOPHEN TAB 325 MG TAB PO PRN (14:02)
[2022-11-06] MEDS: HYDROmorphone 1 MG/ML 1 ML SYRINGE IVP PRN ×2 (14:16→20:01)
[2022-11-06] MEDS: SODIUM CHLORIDE 0.9% 1,000 ML IV SCH (14:17)
[2022-11-06 17:12] LABS: Glucose,Whole Blood 236 mg/dL (70-110)
[2022-11-06] MEDS ORDERED: DEXTROSE 50% SYRINGE 50 ML IVP PRN ×2 (18:21)
[2022-11-06] MEDS ORDERED: ONDANSETRON 4 MG/2 ML VIAL IVP PRN (18:22)
[2022-11-06] MEDS ORDERED: MELATONIN 3 MG TABLET PO PRN (18:22)
[2022-11-06] MEDS: INSULIN ASPART (NovoLOG) 100 UNIT/ML VIAL SQ SCH (18:34)
[2022-11-06] MEDS: DULoxetine HCL 60 MG CAPSULE.DR PO SCH (20:02)
[2022-11-06] MEDS: FAMOTIDINE 20 MG TAB PO SCH (20:03)
[2022-11-06] MEDS: VASCEPA 1 GM PO SCH (20:03)
[2022-11-06] MEDS: PREGABALIN 75 MG CAP PO SCH (20:03)
[2022-11-06] MEDS: carvediloL 12.5 MG TAB PO SCH (20:03)
[2022-11-06] MEDS ORDERED: VANCOMYCIN IV PER PHARMACY 1 EACH MISC MISCELLANE PRN (20:08)
--- NOTE | 2022-11-06 20:11 | P.HPIM ---
History of Present Illness H&P Date: 11/06/22 Chief Complaint: Left foot wound This is a pleasant 52-year-old patient who follows with Dr. Vila. Chronic stable medical conditions include diabetes, previous DVT, GERD, hypertension, obstructive sleep apnea, peripheral neuropathy with removal of all 10 toes, DVT in the right shoulder secondary to PICC line, obstructive sleep apnea uses CPAP. Has had previous bariatric surgery. Anxiety depression. Patient follows at the wound care center with Dr. harrington. He has noticed that the left foot has been developing wound that healed then when he puts his shoes on 8 breaks down again. On this occasion for last 4-5 days wound at the position of the big toe has been draining for last 4-5 days. Fever or chills. Pain is present. Appetite is fair. No change in bowel habits. Sent in for the same. Review of systems: GEN.: Fever chills, tired EYES: None HEENT: None NECK: None RESPIRATORY: None CARDIOVASCULAR: None GASTROINTESTINAL: None GENITOURINARY: None MUSCULOSKELETAL: As above LYMPHATICS: None HEMATOLOGICAL: None PSYCHIATRY: None NEUROLOGICAL: Peripheral neuropathy Past medical history to include: Diabetes, GERD, hypertension, obstructive sleep apnea uses CPAP, neuropathy of all 4 extremities, bariatric surgery, on 10 over digits amputated. Depression and anxiety. Social history: Quit smoking cigars in 2003. Alcohol rarely. Does use marijuana. Lives with his sister Physical examination: VITAL SIGNS: 98.6, 83, 20, 117/74, 99% room air GENERAL: BMI 32.3, reclining in bed not in distress. EYES: Pupils equal. Conjunctiva normal. HEENT: External appearance of nose and ears normal, oral cavity grossly normal. NECK: JVD not raised; masses not palpable. HEART: First and second heart sounds are normal; no edema. LUNGS: Respiratory rate normal; decreased breath sounds. ABDOMEN: Soft, nontender, liver spleen not palpable, no masses palpable. PSYCH: Alert and oriented x3; mood and affect normal. MUSCULOSKELETAL:No Clubbing/cyanosis;muscles-grossly intact. Area of blotchy redness left lower extremity, between the knee and the ankle. Wound at the site of the left foot big toe. All 10 toes are missing NEUROLOGICAL: [Cranial nerves grossly intact; no facial asymmetry, power and sensation are decreased distally LYMPHATICS: No lymph nodes palpable in the axilla and neck INVESTIGATIONS, reviewed in the clinical context: White count 16 globin 13.1 platelets 136 potassium 3.3 BUN 13 creatinine 0.74 Left foot x-ray diffuse soft tissue edema but no destructive changes seen of osteomyelitis. Tibia-fibula left: Changes of arthropathy Assessment and plan: -Patient is recurrent wound and a previous amputation site of the left big toe that keeps getting worse with getting his boots. Patient also neuropathy in the feet. With fever chills pain and for last for 5 days and draining. Consult vascular, ID. -Diabetes mellitus type 2 bydureon, follow sliding scale insulin -Depression Prozac Cymbalta -Essential hypertension Resume home blood pressure medications -GERD Prilosec -Diabetic peripheral neuropathy Lyrica -Full code Consult ID. Consult vascular. IV vancomycin. Home medications renewed. Follow Accu-Cheks. Care was discussed with the patient. Subcu Lovenox. 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 Bilateral feet all digits amputated. Staph infection in left thigh secondary to abcess removed surgically, multiple debridments and skin graft surgeries to bilateral feet, gastric bypass 01-01-20 Past Anesthesia/Blood Transfusion Reactions: Previous Problems w/ Anesthesia, Postoperative Nausea & Vomiting (PONV) Additional Past Anesthesia/Blood Transfusion Reaction / Comment(s): had "high fever last surgery 04/2019, [facility]" anesthesia record obtained from then, no mention of temp or malignant hyperthermia. Past Psychological History: Anxiety, Depression Additional Psychological History / Comment(s): Takes prozac, xanax, lyrica, and cymbalta Smoking Status: Former smoker Past Alcohol Use History: Rare Additional Past Alcohol Use History / Comment(s): quit smoking cigarettes in 2003, Past Drug Use History: Marijuana Additional Drug Use History / Comment(s): 02/15/19: Currently uses marijuana. - Past Family History Father Family Medical History: Congestive Heart Failure (CHF), CVA/TIA Additional Family Medical History / Comment(s): at age 79. Mother Family Medical History: Cancer, COPD Additional Family Medical History / Comment(s): Leukemia, at age 80. Medications and Allergies Home Medications Medication Instructions Recorded Confirmed Type FLUoxetine HCL [PROzac] 20 mg PO QAM 05/28/16 11/06/22 History Pregabalin [Lyrica] 150 mg PO BID 05/28/16 11/06/22 History DULoxetine HCL [Cymbalta] 60 mg PO HS 06/29/16 11/06/22 History ALPRAZolam [Xanax] 1 mg PO BID PRN 02/15/19 11/06/22 History Exenatide Microspheres [Bydureon 2 mg SQ SEARS 02/15/19 11/06/22 History Pen] Olmesartan/Amlodipin/Hcthiazid 0.5 tab PO DAILY 02/15/19 11/06/22 History [Tribenzor 40-10-25 mg Tablet] carvediloL 25 mg PO BID 12/28/19 11/06/22 History Ergocalciferol [Vitamin D2 (1250 50,000 unit PO SEARS 12/20/20 11/06/22 History Mcg = 09677 Iu)] Ferrous Sulfate [Iron (65 MG 325 mg PO DAILY 06/11/21 11/06/22 History Elemental)] Vascepa 1gm 1 gm PO BID 06/11/21 11/06/22 History Zinc 50 mg PO DAILY 06/11/21 11/06/22 History Omeprazole [PriLOSEC] 40 mg PO QAM 05/28/22 11/06/22 History Ascorbic Acid [Vitamin C] 1,000 mg PO DAILY 11/06/22 11/06/22 History Allergies Allergy/AdvReac Type Severity Reaction Status Date / Time adhesive tape Allergy Rash/Hives Verified 11/06/22 12:46 Physical Exam Vitals: Vital Signs Temp Pulse Pulse Resp BP BP BP 11/06/22 19:04 97.8 F 84 16 182/101 11/06/22 15:00 98.1 F 76 16 146/86 11/06/22 14:02 77 18 140/80 11/06/22 11:59 98.6 F 83 20 117/74 Pulse Ox 11/06/22 19:04 98 11/06/22 15:00 97 11/06/22 14:02 97 11/06/22 11:59 99 Intake and Output 11/06/22 11/06/22 11/06/22 06:59 14:59 22:59 Intake Total 118 Balance 118 Intake: Oral 118 Other: Weight 120.202 kg 120.202 kg Results CBC & Chem 7: 11/06/22 12:39 11/06/22 12:39 Labs: Abnormal Lab Results - Last 24 Hours (Table) 11/06/22 11/06/22 11/06/22 Range/Units 12:39 12:39 17:11 RBC 3.99 L (4.30-5.90) m/uL Hct 37.1 L (39.0-53.0) % Plt Count 136 L (150-450) k/uL Potassium 3.3 L (3.5-5.1) mmol/L Carbon Dioxide 31 H (22-30) mmol/L Glucose 126 H (74-99) mg/dL POC Glucose (mg/dL) 236 H (70-110) mg/dL Alkaline Phosphatase 135 H (38-126) U/L Thrombosis Risk Factor Assmnt - Choose All That Apply Any of the Below Risk Factors Present?: Yes Each Factor Represents 1 point: Age 41-60 years, Obesity (BMI >25) Other Risk Factors: No Thrombosis Risk Factor Assessment Total Risk Factor Score: 2 Thrombosis Risk Factor Assessment Level: Low Risk
[2022-11-06] MEDS ORDERED: VANCOMYCIN 2,000 MG in SODIUM CHLORIDE 0.9% 500 ML 500 ML IVPB STA (20:20)
--- NOTE | 2022-11-06 22:05 | P.CONS ---
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 transmetatarsal amput ation site on the medial aspect currently being treated at [facility] and recently he did have a total contact cast which was removed on 10/28/2022 patient mentioned he subsequently did have follow-up with the air valve mechanic as they were discussing possible tendon lengthening procedure however the patient was noticed to have significant swelling redness to the left lower extremity or the patient has been sent to the ER for further evaluation, patient mentioned his left leg has been getting more swollen and red over the last few days he did have some dull aching pain 3-4 out of 10 and no radiation denies having any blister formation to the lower leg or any drainage she did have a n onhealing wound has mentioned only to the left foot transmetatarsal amputation site with some blood stained drainage, however the symptoms the patient was evaluated by the patient on arrival to the ER the patient was afebrile and no fever has been recorded subsequently patient did have a normal white count kidney function was normal. Liver enzymes are normal patient did have x-ray of the leg and foot with tissue soft tissue swelling but no evidence of any bone destruction patient was started on vancomycin and Zosyn admitted to the hospital infectious disease was consulted for further management of antibiotic therapy Review of Systems Positive point has been mentioned in the HPI rest of the systems are negative Past Medical History Past Medical History: CVA/TIA, Diabetes Mellitus, Deep Vein Thrombosis (DVT), GERD/Reflux, Hypertension, Neurologic Disorder, Sleep Apnea/CPAP/BIPAP Additional Past Medical History / Comment(s): STATES OPEN WOULD ON LEFT FOOT, STATE DR. WEBER IS AWARE. 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 Bilateral feet all digits amputated. Staph infection in left thigh secondary to abcess removed surgically, multiple debridments and skin graft surgeries to bilateral feet, gastric bypass 01-01-20 Past Anesthesia/Blood Transfusion Reactions: Previous Problems w/ Anesthesia, Postoperative Nausea & Vomiting (PONV) Additional Past Anesthesia/Blood Transfusion Reaction / Comm: had "high fever last surgery 04/2019, [facility]" anesthesia record obtained from then, no mention of temp or malignant hyperthermia. Past Psychological History: Anxiety, Depression Smoking Status: Former smoker Past Alcohol Use History: Rare Past Drug Use History: Marijuana - Past Family History Father Family Medical History: Congestive Heart Failure (CHF), CVA/TIA Additional Family Medical History / Comment(s): at age 79. Mother Family Medical History: Cancer, COPD Additional Family Medical History / Comment(s): Leukemia, at age 80. Medications and Allergies Home Medications Medication Instructions Recorded Confirmed Type FLUoxetine HCL [PROzac] 20 mg PO QAM 05/28/16 11/06/22 History Pregabalin [Lyrica] 150 mg PO BID 05/28/16 11/06/22 History DULoxetine HCL [Cymbalta] 60 mg PO HS 06/29/16 11/06/22 History ALPRAZolam [Xanax] 1 mg PO BID PRN 02/15/19 11/06/22 History Exenatide Microspheres [Bydureon 2 mg SQ SEARS 02/15/19 11/06/22 History Pen] Olmesartan/Amlodipin/Hcthiazid 0.5 tab PO DAILY 02/15/19 11/06/22 History [Tribenzor 40-10-25 mg Tablet] carvediloL 25 mg PO BID 12/28/19 11/06/22 History Ergocalciferol [Vitamin D2 (1250 50,000 unit PO SEARS 12/20/20 11/06/22 History Mcg = 31779 Iu)] Ferrous Sulfate [Iron (65 MG 325 mg PO DAILY 06/11/21 11/06/22 History Elemental)] Vascepa 1gm 1 gm PO BID 06/11/21 11/06/22 History Zinc 50 mg PO DAILY 06/11/21 11/06/22 History Omeprazole [PriLOSEC] 40 mg PO QAM 05/28/22 11/06/22 History Ascorbic Acid [Vitamin C] 1,000 mg PO DAILY 11/06/22 11/06/22 History Cephalexin [Keflex] 500 mg PO Q6HR 10 Days #40 cap 11/09/22 Rx Allergies Allergy/AdvReac Type Severity Reaction Status Date / Time adhesive tape Allergy Rash/Hives Verified 11/06/22 12:46 Physical Exam Vitals: Vital Signs Temp Pulse Resp BP Pulse Ox 11/06/22 14:02 77 18 140/80 97 11/06/22 11:59 98.6 F 83 20 117/74 99 Intake and Output 11/05/22 11/06/22 11/06/22 22:59 06:59 14:59 Other: Weight 120.202 kg GENERAL DESCRIPTION: Middle-aged male lying in bed, no distress. No tachypnea or accessory muscle of respiration use. HEENT: Shows Pallor , no scleral icterus. Oral mucous membrane is dry. No pharyngeal erythema or thrush NECK: Trachea central, no thyromegaly. LUNGS: Unlabored breathing. Clear to auscultation anteriorly. No wheeze or crackle. HEART: S1, S2, regular rate and rhythm. No loud murmur ABDOMEN: Soft, no tenderness , guarding or rigidity, no organomegaly EXTREMITIES: Diffuse swelling to the left lower extremity with associated redness which is warm to touch, with a wound on the medial aspect of the left transmetatarsal amputation site with some blood stained drainage SKIN: No rash, no masses palpable. NEUROLOGICAL: The patient is awake, alert, oriented x3, mood and affect normal. Results CBC & Chem 7: 11/09/22 06:12 11/09/22 06:12 Labs: Abnormal Lab Results - Last 24 Hours (Table) 11/06/22 11/06/22 Range/Units 12:39 12:39 RBC 3.99 L (4.30-5.90) m/uL Hct 37.1 L (39.0-53.0) % Plt Count 136 L (150-450) k/uL Potassium 3.3 L (3.5-5.1) mmol/L Carbon Dioxide 31 H (22-30) mmol/L Glucose 126 H (74-99) mg/dL Alkaline Phosphatase 135 H (38-126) U/L Assessment and Plan (1) Cellulitis of left leg Current Visit: Yes Status: Acute Code(s): L03.116 - CELLULITIS OF LEFT LOWER LIMB SNOMED Code(s): 007071289 (2) Wound of foot Current Visit: Yes Status: Acute Code(s): S91.309A - UNSPECIFIED OPEN WOUND, UNSPECIFIED FOOT, INITIAL ENCOUNTER SNOMED Code(s): 041140072 Plan: 1patient presented to hospital with extensive left lower extremity cellulitis source is likely left diabetic foot wound infection to the source of this cellulitis and will need to cover for the gram-positive skin marisa as well as gram-negative pathogen while waiting for the cultures to finalize 2-blood culture has been obtained we'll request for local wound culture to guide further antibiotic therapy 3-patient to continue the vancomycin however discontinue Zosyn to decrease risk of nephrotoxicity and start the patient on cefepime We will follow on clinical condition and cultures to further adjust medication if needed Thank you for this consultation will follow this patient with you Time with Patient: Greater than 30
[2022-11-06] MEDS: ENOXAPARIN 40 MG/0.4 ML SYRINGE SQ SCH (22:26)
[2022-11-06] MEDS: ALPRAZolam 1 MG TAB PO PRN (22:27)
[2022-11-07] MEDS: CEFEPIME 2 GM in SODIUM CHLORIDE 0.9% 100 ML IVPB SCH ×2 (00:50→08:14)
[2022-11-07] MEDS: HYDROmorphone 1 MG/ML 1 ML SYRINGE IVP PRN ×4 (01:08→20:39)
[2022-11-07] MEDS: SODIUM CHLORIDE 0.9% 1,000 ML IV SCH ×2 (03:24→16:35)
[2022-11-07] MEDS ORDERED: VANCOMYCIN 1,750 MG in SODIUM CHLORIDE 0.9% 500 ML 500 ML IVPB SCH (06:00)
[2022-11-07] MEDS: PANTOPRAZOLE 40 MG TABLET PO SCH (06:16)
[2022-11-07] MEDS: INSULIN ASPART (NovoLOG) 100 UNIT/ML VIAL SQ SCH ×3 (06:17→17:29)
[2022-11-07 06:20] LABS: Glucose,Whole Blood 125 mg/dL (70-110)
[2022-11-07 07:06] LABS: African American GFR (CKD) >90 (>60 ml/min/1.73 sqM); Non-African American GFR(CKD) >90 (>60 ml/min/1.73 sqM)
[2022-11-07] MEDS: carvediloL 12.5 MG TAB PO SCH ×2 (07:56→20:40)
[2022-11-07] MEDS: ZINC SULFATE 220 MG CAP PO SCH (07:56)
[2022-11-07] MEDS: ASCORBIC ACID 500 MG TAB PO SCH (07:56)
[2022-11-07] MEDS: ENOXAPARIN 40 MG/0.4 ML SYRINGE SQ SCH (07:56)
[2022-11-07] MEDS: amLODIPine 5 MG TAB PO SCH (07:56)
[2022-11-07] MEDS: LOSARTAN 50 MG TAB PO SCH (07:57)
[2022-11-07] MEDS: FAMOTIDINE 20 MG TAB PO SCH ×2 (07:57→20:40)
[2022-11-07] MEDS: FERROUS SULFATE 325 MG TAB PO SCH (07:57)
[2022-11-07] MEDS: PREGABALIN 75 MG CAP PO SCH ×2 (07:57→20:40)
[2022-11-07] MEDS: FLUoxetine HCL 20 MG CAP PO SCH (07:57)
[2022-11-07] MEDS: hydroCHLOROthiazide 12.5 MG CAP PO SCH (08:00)
[2022-11-07] MEDS: VASCEPA 1 GM PO SCH ×2 (08:08→20:41)
[2022-11-07] MEDS ORDERED: POTASSIUM CHLORIDE ER 20 MEQ TAB.ER PO STA (08:18)
--- NOTE | 2022-11-07 12:02 | CONS ---
CONSULTATION HISTORY OF PRESENT ILLNESS: This is a 52-year-old gentleman, who came to the emergency room from [facility], sent for a possible cellulitis and infection, transmetatarsal stump. The patient has a chronic wound on the stump, mid aspect. The patient is under the care of Dr. Persaud and Dr. Keane. The patient was sent to [facility] for opinion and was told that the patient needs a tendocalcaneus lengthening procedure. The patient was seen on Wednesday, had debridement done and was sent to the emergency room. The patient has noticed some cellulitis of the left lower extremity. MEDICAL HISTORY: The patient has history of diabetes, hypertension, sleep apnea. SURGICAL HISTORY: The patient had a right foot transmetatarsal done by me in 2020, then he developed transmetatarsal on the left foot and chronic wound and is under the care of Dr. Ken Persaud and Dr. Keane. The patient also had a surgery for obesity in the past. PHYSICAL EXAMINATION: GENERAL: The patient was seen in his room. NECK: Supple. Trachea central. CHEST: Clear to auscultation. ABDOMEN: Soft, nontender. EXTREMITIES: Femorals are palpable, 1+ bilateral. Left foot transmetatarsal stump has some open wound, no drainage noted. The patient also has some cellulitis of the lower extremity. The patient is responding to the antibiotic. Today, we took the culture and we used Aquacel silver for the wound, and the patient was seen by Infectious Disease for IV antibiotic, to change the dressing on Wednesday with Aquacel silver. Follow with you. MMODL / IJN: [id number] /
[2022-11-07 12:10] LABS: Glucose,Whole Blood 159 mg/dL (70-110)
--- NOTE | 2022-11-07 12:31 | P.PN ---
Subjective Progress Note Date: 11/07/22 Principal diagnosis: Left diabetic foot ulcer and left leg cellulitis Patient is a 52-year-old male with multiple comorbidities including diabetes mellitus hypertension and sleep apnea history of diabetic foot infection requiring transplant also amputation of the left foot in this patient who did have a chronic nonhealing wound to the left foot transmetatarsal amputat ion site on the medial aspect, presented to hospital with left lower extremity cellulitis and left transplant also amputation site wound infection. On today's evaluation that is 11/07/2022, the patient denies having any fever or any chills, the patient is breathing comfortably on room air no chest pain shortness of breath or cough no abdominal pain left lower extremity swelling redness has slightly decreased and denies any worsening pain Objective - Vital Signs Vital signs: Vital Signs Temp 98 F 11/07/22 07:00 Pulse 67 11/07/22 07:00 Resp 18 11/07/22 07:00 BP 153/82 11/07/22 07:00 Pulse Ox 98 11/07/22 07:00 FiO2 Intake & Output 11/06/22 11/07/22 11/07/22 18:59 06:59 18:59 Intake Total 118 240 Output Total 650 Balance 118 -650 240 Weight 120.202 kg Intake: Oral 118 240 Output: Urine 650 Other: # Voids 2 - Exam GENERAL DESCRIPTION: A middle-aged male lying in bed in no distress RESPIRATORY SYSTEM: Unlabored breathing , decreased breath sounds at bases HEART: S1 S2 regular rate and rhythm , ABDOMEN: Soft , no tenderness EXTREMITIES: Left transmetatarsal amputation site wound on the medial aspect with no significant slough tissue left leg swelling and redness slightly decreased - Labs CBC & Chem 7: 11/06/22 12:39 11/07/22 06:13 Labs: Abnormal Lab Results - Last 24 Hours (Table) 11/06/22 11/06/22 11/06/22 Range/Units 12:39 12:39 17:11 RBC 3.99 L (4.30-5.90) m/uL Hct 37.1 L (39.0-53.0) % Plt Count 136 L (150-450) k/uL Potassium 3.3 L (3.5-5.1) mmol/L Carbon Dioxide 31 H (22-30) mmol/L Glucose 126 H (74-99) mg/dL POC Glucose (mg/dL) 236 H (70-110) mg/dL Alkaline Phosphatase 135 H (38-126) U/L 11/07/22 Range/Units 06:16 RBC (4.30-5.90) m/uL Hct (39.0-53.0) % Plt Count (150-450) k/uL Potassium (3.5-5.1) mmol/L Carbon Dioxide (22-30) mmol/L Glucose (74-99) mg/dL POC Glucose (mg/dL) 125 H (70-110) mg/dL Alkaline Phosphatase (38-126) U/L Assessment and Plan (1) Cellulitis of left leg Current Visit: Yes Status: Acute Code(s): L03.116 - CELLULITIS OF LEFT LOWER LIMB SNOMED Code(s): 224061953 (2) Wound of foot Current Visit: Yes Status: Acute Code(s): S91.309A - UNSPECIFIED OPEN WOUND, UNSPECIFIED FOOT, INITIAL ENCOUNTER SNOMED Code(s): 049081350 Plan: 1patient presented to hospital with extensive left lower extremity cellulitis source is likely left diabetic foot wound infection to the source of this cell ulitis and will need to cover for the gram-positive skin marisa as well as gram- negative pathogen while waiting for the cultures to finalize 2-blood culture has been obtained which are negative so far outpatient culture done on growing group C streptococcus 3-we will discontinue vancomycin and cefepime start the patient on cefazolin Time with Patient: Less than 30
[2022-11-07 17:29] LABS: Glucose,Whole Blood 86 mg/dL (70-110)
--- NOTE | 2022-11-07 18:38 | P.PN ---
Progress Note - Text Progress Note Date: 11/07/22 Chief Complaint: Left foot wound This is a pleasant 52-year-old patient who follows with Dr. Vila. Chronic stable medical conditions include diabetes, previous DVT, GERD, hypertension, obstructive sleep apnea, peripheral neuropathy with removal of all 10 toes, DVT in the right shoulder secondary to PICC line, obstructive sleep apnea uses CPAP. Has had previous bariatric surgery. Anxiety depression. Patient follows at the wound care center with Dr. harrington. He has noticed that the left foot has been developing wound that healed then when he puts his shoes on 8 breaks down again. On this occasion for last 4-5 days wound at the position of the big toe has been draining for last 4-5 days. Fever or chills. Pain is present. Appetite is fair. No change in bowel habits. Sent in for the same. 11/07/2022: Patient seen by Dr. Gomez from vascular surgery. He did wound care change. No need for any debridement. Discussed with him. Antibiotics to continue. Cultures pending. On IV Ancef. Active Medications Acetaminophen (Acetaminophen Tab 325 Mg Tab) 650 mg PO Q6HR PRN PRN Reason: Mild Pain or Fever > 100.5 Alprazolam (Alprazolam 1 Mg Tab) 1 mg PO BID PRN PRN Reason: Anxiety Last Admin: 11/06/22 22:27 Dose: 1 mg Amlodipine Besylate (Amlodipine 5 Mg Tab) 5 mg PO DAILY [facility] Last Admin: 11/07/22 07:56 Dose: 5 mg Ascorbic Acid (Ascorbic Acid 500 Mg Tab) 1,000 mg PO DAILY [facility] Last Admin: 11/07/22 07:56 Dose: 1,000 mg Carvedilol (Carvedilol 12.5 Mg Tab) 25 mg PO BID [facility] Last Admin: 11/07/22 07:56 Dose: 25 mg Dextrose/Water (Dextrose 50% Syringe 50 Ml) 25 ml IVP PER PROTOCOL PRN; Protocol PRN Reason: Hypoglycemia Dextrose/Water (Dextrose 50% Syringe 50 Ml) 50 ml IVP PER PROTOCOL PRN; Protocol PRN Reason: Hypoglycemia Duloxetine HCl (Duloxetine Hcl 60 Mg Capsule.) 60 mg PO HS [facility] Last Admin: 11/06/22 20:02 Dose: 60 mg Enoxaparin Sodium (Enoxaparin 40 Mg/0.4 Ml Syringe) 40 mg SQ DAILY [facility] Last Admin: 11/07/22 07:56 Dose: 40 mg Ergocalciferol (Ergocalciferol 1,250 Mcg (50,000 Iu) Capsule) 1,250 mcg PO SEARS [facility] Famotidine (Famotidine 20 Mg Tab) 20 mg PO BID [facility] Last Admin: 11/07/22 07:57 Dose: 20 mg Ferrous Sulfate (Ferrous Sulfate 325 Mg Tab) 325 mg PO DAILY [facility] Last Admin: 11/07/22 07:57 Dose: 325 mg Fluoxetine HCl (Fluoxetine Hcl 20 Mg Cap) 20 mg PO QAM [facility] Last Admin: 11/07/22 07:57 Dose: 20 mg Hydrochlorothiazide (Hydrochlorothiazide 12.5 Mg Cap) 12.5 mg PO DAILY [facility] Last Admin: 11/07/22 08:00 Dose: 12.5 mg Hydromorphone HCl (Hydromorphone 0.5 Mg/0.5 Ml Syringe) 0.5 mg IVP Q3HR PRN PRN Reason: Moderate Pain (Scale 4 to 6) Hydromorphone HCl (Hydromorphone 1 Mg/Ml 1 Ml Syringe) 1 mg IVP Q3HR PRN PRN Reason: Severe Pain (Scale 7 to 10) Last Admin: 11/07/22 16:32 Dose: 1 mg Sodium Chloride (Saline 0.9%) 1,000 mls @ 75 mls/hr IV .[id number] [facility] Last Admin: 11/07/22 16:35 Dose: 75 mls/hr Cefazolin Sodium 2 gm/ Sodium (Chloride) 50 mls @ 100 mls/hr IVPB Q8HR [facility]; Protocol Last Admin: 11/07/22 16:32 Dose: 100 mls/hr Insulin Aspart (Insulin Aspart (Novolog) 100 Unit/Ml Vial) 0 unit SQ AC-TID [facility]; Protocol Last Admin: 11/07/22 17:29 Dose: Not Given Losartan Potassium (Losartan 50 Mg Tab) 100 mg PO DAILY [facility] Last Admin: 11/07/22 07:57 Dose: 100 mg Melatonin (Melatonin 3 Mg Tablet) 3 mg PO HS PRN PRN Reason: Insomnia Naloxone HCl (Naloxone 0.4 Mg/Ml 1 Ml Vial) 0.2 mg IV Q2M PRN PRN Reason: Opioid Reversal Exenatide Microspheres [ Bydureon Pen] 2 Mg/0 .65 Ml Pen.Injctr 2 mg SQ SEARS [facility] Vascepa 1gm 1 Gm 1 gm PO BID [facility] Last Admin: 11/07/22 08:08 Dose: Not Given Ondansetron HCl (Ondansetron 4 Mg/2 Ml Vial) 4 mg IVP Q8HR PRN PRN Reason: Nausea And Vomiting Pantoprazole Sodium (Pantoprazole 40 Mg Tablet) 40 mg PO QAM@0730 [facility] Last Admin: 11/07/22 06:16 Dose: 40 mg Pregabalin (Pregabalin 75 Mg Cap) 150 mg PO BID [facility] Last Admin: 11/07/22 07:57 Dose: 150 mg Zinc Sulfate (Zinc Sulfate 220 Mg Cap) 220 mg PO DAILY [facility] Last Admin: 11/07/22 07:56 Dose: 220 mg Past medical history to include: Diabetes, GERD, hypertension, obstructive sleep apnea uses CPAP, neuropathy of all 4 extremities, bariatric surgery, on 10 over digits amputated. Depression and anxiety. Social history: Quit smoking cigars in 2003. Alcohol rarely. Does use marijuana. Lives with his sister Physical examination: VITAL SIGNS: 98.5, 84, 18, 139 the 88, 94% room air GENERAL: A tanning bed, comfortable EYES: Pupils equal. Conjunctiva normal. HEENT: External appearance of nose and ears normal, oral cavity grossly normal. NECK: JVD not raised; masses not palpable. HEART: First and second heart sounds are normal; no edema. LUNGS: Respiratory rate normal; decreased breath sounds. ABDOMEN: Soft, nontender, liver spleen not palpable, no masses palpable. PSYCH: Alert and oriented x3; mood and affect normal. MUSCULOSKELETAL:No Clubbing/cyanosis;muscles-grossly intact. Area of blotchy redness left lower extremity, between the knee and the ankle. Wound at the site of the left foot big toe. All 10 toes are missing NEUROLOGICAL: [Cranial nerves grossly intact; no facial asymmetry, power and sensation are decreased distally INVESTIGATIONS, reviewed in the clinical context: White count 16 globin 13.1 platelets 136 potassium 3.3 BUN 13 creatinine 0.74 Left foot x-ray diffuse soft tissue edema but no destructive changes seen of osteomyelitis. Tibia-fibula left: Changes of arthropathy Assessment and plan: - recurrent wound at a previous amputation site of the left big toe that keeps getting worse after he wears boots. also neuropathy in the feet. With fever chills pain and for last for 5 days and draining. IV Ancef. Cultures pending. Seen by Dr. Kelly from vascular. No debridement at this point. Aquacel silver wound care. -Diabetes mellitus type 2 bydureon, follow sliding scale insulin -Depression Prozac Cymbalta -Essential hypertension Continue blood pressure medications -GERD Prilosec -Diabetic peripheral neuropathy Lyrica -Full code IV Ancef. Discussed with Dr. Kelly. Medications to continue. Await cultures.
[2022-11-07 20:35] LABS: Glucose,Whole Blood 138 mg/dL (70-110)
[2022-11-07] MEDS: DULoxetine HCL 60 MG CAPSULE.DR PO SCH (20:40)
[2022-11-07] MEDS: ALPRAZolam 1 MG TAB PO PRN (23:17)
[2022-11-08 06:06] LABS: Glucose,Whole Blood 115 mg/dL (70-110)
[2022-11-08] MEDS: PANTOPRAZOLE 40 MG TABLET PO SCH (06:06)
[2022-11-08] MEDS: HYDROmorphone 1 MG/ML 1 ML SYRINGE IVP PRN ×3 (06:08→21:02)
[2022-11-08] MEDS: INSULIN ASPART (NovoLOG) 100 UNIT/ML VIAL SQ SCH ×3 (06:15→17:27)
[2022-11-08] MEDS: SODIUM CHLORIDE 0.9% 1,000 ML IV SCH ×2 (07:15→21:02)
[2022-11-08] MEDS: ASCORBIC ACID 500 MG TAB PO SCH (08:51)
[2022-11-08] MEDS: ZINC SULFATE 220 MG CAP PO SCH (08:51)
[2022-11-08] MEDS: amLODIPine 5 MG TAB PO SCH (08:51)
[2022-11-08] MEDS: carvediloL 12.5 MG TAB PO SCH ×2 (08:51→21:03)
[2022-11-08] MEDS: PREGABALIN 75 MG CAP PO SCH ×2 (08:51→21:03)
[2022-11-08] MEDS: FERROUS SULFATE 325 MG TAB PO SCH (08:51)
[2022-11-08] MEDS: ENOXAPARIN 40 MG/0.4 ML SYRINGE SQ SCH (08:51)
[2022-11-08] MEDS: LOSARTAN 50 MG TAB PO SCH (08:51)
[2022-11-08] MEDS: FLUoxetine HCL 20 MG CAP PO SCH (08:51)
[2022-11-08] MEDS: FAMOTIDINE 20 MG TAB PO SCH ×2 (08:51→21:03)
[2022-11-08] MEDS: hydroCHLOROthiazide 12.5 MG CAP PO SCH (08:52)
[2022-11-08] MEDS ORDERED: EXENATIDE SQ SCH (09:00)
[2022-11-08] MEDS ORDERED: ERGOCALCIFEROL 1,250 MCG (50,000 IU) CAPSULE PO SCH (09:00)
[2022-11-08] MEDS: VASCEPA 1 GM PO SCH ×2 (09:55→23:12)
[2022-11-08 11:34] LABS: Glucose,Whole Blood 143 mg/dL (70-110)
[2022-11-08] MEDS ORDERED: VANCOMYCIN TROUGH DUE 1 EACH MISC MISCELLANE ONE (13:00)
[2022-11-08 17:23] LABS: Glucose,Whole Blood 89 mg/dL (70-110)
--- NOTE | 2022-11-08 18:04 | P.PN ---
Subjective Progress Note Date: 11/08/22 Principal diagnosis: Left diabetic foot ulcer and left leg cellulitis Patient is a 52-year-old male with multiple comorbidities including diabetes mellitus hypertension and sleep apnea history of diabetic foot infection requiring transplant also amputation of the left foot in this patient who did have a chronic nonhealing wound to the left foot transmetatarsal amputat ion site on the medial aspect, presented to hospital with left lower extremity cellulitis and left transplant also amputation site wound infection. On today's evaluation that is 11/08/2022, the patient remains to be afebrile, the patient is breathing comfortably on room air , the patient denies chest pain shortness of breath or cough no abdominal pain left lower extremity swelling redness has slightly decreased and pain has decreased in intensity Objective - Vital Signs Vital signs: Vital Signs Temp 98 F 11/08/22 13:44 Pulse 81 11/08/22 13:44 Resp 18 11/08/22 13:44 BP 128/71 11/08/22 13:44 Pulse Ox 95 11/08/22 13:44 FiO2 Intake & Output 11/07/22 11/08/22 11/08/22 18:59 06:59 18:59 Intake Total 720 240 Balance 720 240 Intake: Oral 720 240 Other: # Voids 2 2 2 - Exam GENERAL DESCRIPTION: A middle-aged male lying in bed in no distress RESPIRATORY SYSTEM: Unlabored breathing , decreased breath sounds at bases HEART: S1 S2 regular rate and rhythm , ABDOMEN: Soft , no tenderness EXTREMITIES: Left transmetatarsal amputation site wound currently dressed no drainage of the dressing left leg redness has decreased and not as warm to touch - Labs CBC & Chem 7: 11/06/22 12:39 11/07/22 06:13 Labs: Abnormal Lab Results - Last 24 Hours (Table) 11/07/22 11/08/22 11/08/22 Range/Units 20:33 06:04 11:32 POC Glucose (mg/dL) 138 H 115 H 143 H (70-110) mg/dL Microbiology - Last 24 Hours (Table) 11/06/22 12:39 Blood Culture - Preliminary Blood No Growth after 48 hours 11/07/22 10:40 Gram Stain - Preliminary Foot - Left Wound Culture - Preliminary Beta Hemolytic Strep Group C 11/06/22 12:39 Blood Culture - Preliminary Blood No Growth after 24 hours Assessment and Plan (1) Cellulitis of left leg Current Visit: Yes Status: Acute Code(s): L03.116 - CELLULITIS OF LEFT LOWER LIMB SNOMED Code(s): 017384530 (2) Wound of foot Current Visit: Yes Status: Acute Code(s): S91.309A - UNSPECIFIED OPEN WOUND, UNSPECIFIED FOOT, INITIAL ENCOUNTER SNOMED Code(s): 065598536 Plan: 1patient presented to hospital with extensive left lower extremity cellulitis source is likely left diabetic foot wound infection to the source of this cellulitis and will need to cover for the gram-positive skin marisa 2-blood culture has been obtained which are negative so far outpatient culture done on growing group C streptococcus 3-patient to continue with the cefazolin and if the patient continued to improve to finish therapy with oral Keflex Time with Patient: Less than 30
[2022-11-08 20:39] LABS: Glucose,Whole Blood 121 mg/dL (70-110)
[2022-11-08] MEDS: DULoxetine HCL 60 MG CAPSULE.DR PO SCH (21:03)
--- NOTE | 2022-11-08 22:14 | P.PN ---
Progress Note - Text Progress Note Date: 11/08/22 Chief Complaint: Left foot wound This is a pleasant 52-year-old patient who follows with Dr. Vila. Chronic stable medical conditions include diabetes, previous DVT, GERD, hypertension, obstructive sleep apnea, peripheral neuropathy with removal of all 10 toes, DVT in the right shoulder secondary to PICC line, obstructive sleep apnea uses CPAP. Has had previous bariatric surgery. Anxiety depression. Patient follows at the wound care center with Dr. harrington. He has noticed that the left foot has been developing wound that healed then when he puts his shoes on 8 breaks down again. On this occasion for last 4-5 days wound at the position of the big toe has been draining for last 4-5 days. Fever or chills. Pain is present. Appetite is fair. No change in bowel habits. Sent in for the same. 11/07/2022: Patient seen by Dr. Gomez from vascular surgery. He did wound care change. No need for any debridement. Discussed with him. Antibiotics to continue. Cultures pending. On IV Ancef. November 08: Doing well. Pain control. IV Ancef. Cultures growing beta hemolytic strep group C. Not finalized. Active Medications Acetaminophen (Acetaminophen Tab 325 Mg Tab) 650 mg PO Q6HR PRN PRN Reason: Mild Pain or Fever > 100.5 Alprazolam (Alprazolam 1 Mg Tab) 1 mg PO BID PRN PRN Reason: Anxiety Last Admin: 11/07/22 23:17 Dose: 1 mg Amlodipine Besylate (Amlodipine 5 Mg Tab) 5 mg PO DAILY [facility] Last Admin: 11/08/22 08:51 Dose: 5 mg Ascorbic Acid (Ascorbic Acid 500 Mg Tab) 1,000 mg PO DAILY [facility] Last Admin: 11/08/22 08:51 Dose: 1,000 mg Carvedilol (Carvedilol 12.5 Mg Tab) 25 mg PO BID [facility] Last Admin: 11/08/22 21:03 Dose: 25 mg Dextrose/Water (Dextrose 50% Syringe 50 Ml) 25 ml IVP PER PROTOCOL PRN; Protocol PRN Reason: Hypoglycemia Dextrose/Water (Dextrose 50% Syringe 50 Ml) 50 ml IVP PER PROTOCOL PRN; Protocol PRN Reason: Hypoglycemia Duloxetine HCl (Duloxetine Hcl 60 Mg Holly.) 60 mg PO HS [facility] Last Admin: 11/08/22 21:03 Dose: 60 mg Enoxaparin Sodium (Enoxaparin 40 Mg/0.4 Ml Syringe) 40 mg SQ DAILY [facility] Last Admin: 11/08/22 08:51 Dose: 40 mg Ergocalciferol (Ergocalciferol 1,250 Mcg (50,000 Iu) Capsule) 1,250 mcg PO SEARS [facility] Last Admin: 11/08/22 09:55 Dose: Not Given Famotidine (Famotidine 20 Mg Tab) 20 mg PO BID [facility] Last Admin: 11/08/22 21:03 Dose: 20 mg Ferrous Sulfate (Ferrous Sulfate 325 Mg Tab) 325 mg PO DAILY [facility] Last Admin: 11/08/22 08:51 Dose: 325 mg Fluoxetine HCl (Fluoxetine Hcl 20 Mg Cap) 20 mg PO QAM [facility] Last Admin: 11/08/22 08:51 Dose: 20 mg Hydrochlorothiazide (Hydrochlorothiazide 12.5 Mg Cap) 12.5 mg PO DAILY [facility] Last Admin: 11/08/22 08:52 Dose: 12.5 mg Hydromorphone HCl (Hydromorphone 0.5 Mg/0.5 Ml Syringe) 0.5 mg IVP Q3HR PRN PRN Reason: Moderate Pain (Scale 4 to 6) Hydromorphone HCl (Hydromorphone 1 Mg/Ml 1 Ml Syringe) 1 mg IVP Q3HR PRN PRN Reason: Severe Pain (Scale 7 to 10) Last Admin: 11/08/22 21:02 Dose: 1 mg Sodium Chloride (Saline 0.9%) 1,000 mls @ 75 mls/hr IV .[id number] [facility] Last Admin: 11/08/22 21:02 Dose: 75 mls/hr Cefazolin Sodium 2 gm/ Sodium (Chloride) 50 mls @ 100 mls/hr IVPB Q8HR [facility]; Protocol Last Admin: 11/08/22 15:41 Dose: 100 mls/hr Insulin Aspart (Insulin Aspart (Novolog) 100 Unit/Ml Vial) 0 unit SQ AC-TID [facility]; Protocol Last Admin: 11/08/22 17:27 Dose: Not Given Losartan Potassium (Losartan 50 Mg Tab) 100 mg PO DAILY [facility] Last Admin: 11/08/22 08:51 Dose: 100 mg Melatonin (Melatonin 3 Mg Tablet) 3 mg PO HS PRN PRN Reason: Insomnia Naloxone HCl (Naloxone 0.4 Mg/Ml 1 Ml Vial) 0.2 mg IV Q2M PRN PRN Reason: Opioid Reversal Exenatide Microspheres [ Bydureon Pen] 2 Mg/0 .65 Ml Pen.Injctr 2 mg SQ SEARS [facility] Last Admin: 11/08/22 09:55 Dose: Not Given Vascepa 1gm 1 Gm 1 gm PO BID [facility] Last Admin: 11/08/22 09:55 Dose: Not Given Ondansetron HCl (Ondansetron 4 Mg/2 Ml Vial) 4 mg IVP Q8HR PRN PRN Reason: Nausea And Vomiting Pantoprazole Sodium (Pantoprazole 40 Mg Tablet) 40 mg PO QAM@0730 [facility] Last Admin: 11/08/22 06:06 Dose: 40 mg Pregabalin (Pregabalin 75 Mg Cap) 150 mg PO BID [facility] Last Admin: 11/08/22 21:03 Dose: 150 mg Zinc Sulfate (Zinc Sulfate 220 Mg Cap) 220 mg PO DAILY [facility] Last Admin: 11/08/22 08:51 Dose: 220 mg Past medical history to include: Diabetes, GERD, hypertension, obstructive sleep apnea uses CPAP, neuropathy of all 4 extremities, bariatric surgery, on 10 over digits amputated. Depression and anxiety. Social history: Quit smoking cigars in 2003. Alcohol rarely. Does use marijuana. Lives with his sister Physical examination: VITAL SIGNS: 98, 81, 18, 128/71, 95% room air GENERAL: Propped up in bed comfortable EYES: Pupils equal. Conjunctiva normal. HEENT: External appearance of nose and ears normal, oral cavity grossly normal. NECK: JVD not raised; masses not palpable. HEART: First and second heart sounds are normal; no edema. LUNGS: Respiratory rate normal; decreased breath sounds. ABDOMEN: Soft, nontender, liver spleen not palpable, no masses palpable. PSYCH: Alert and oriented x3; mood and affect normal. MUSCULOSKELETAL:No Clubbing/cyanosis;muscles-grossly intact. Area of blotchy redness left lower extremity, between the knee and the ankle. Wound at the site of the left foot big toe. All 10 toes are missing NEUROLOGICAL: [Cranial nerves grossly intact; no facial asymmetry, power and sensation are decreased distally INVESTIGATIONS, reviewed in the clinical context: White count 16 globin 13.1 platelets 136 potassium 3.3 BUN 13 creatinine 0.74 Left foot x-ray diffuse soft tissue edema but no destructive changes seen of osteomyelitis. Tibia-fibula left: Changes of arthropathy Assessment and plan: - recurrent wound at a previous amputation site of the left big toe that keeps getting worse after he wears boots. also neuropathy in the feet. With fever chills pain and for last for 5 days and draining. IV Ancef. Cultures-beta hemolytic strep group C. Seen by Dr. Gomez from vascular. No debridement at this point. Aquacel silver wound care. -Diabetes mellitus type 2 bydureon, follow sliding scale insulin -Depression Prozac Cymbalta -Essential hypertension Continue blood pressure medications -GERD Prilosec -Diabetic peripheral neuropathy Lyrica -Full code IV Ancef. Pending final sensitivity for the wound culture. Continue IV Ancef. Possible discharge tomorrow.
[2022-11-08] MEDS: ALPRAZolam 1 MG TAB PO PRN (23:12)
[2022-11-09] MEDS: PANTOPRAZOLE 40 MG TABLET PO SCH (06:03)
[2022-11-09 07:04] LABS: Glucose,Whole Blood 112 mg/dL (70-110)
[2022-11-09 07:13] LABS: Basophils % (A) 1 %; Eosinophils # (A) 0.3 k/uL (0-0.7); Eosinophils % (A) 7 %; HCT 37.2 % (39.0-53.0); HGB 12.9 gm/dL (13.0-17.5); Lymphocytes # (A) 1.1 k/uL (1.0-4.8); Lymphocytes % (A) 30 %; MCH 32.6 pg (25.0-35.0); MCHC 34.6 g/dL (31.0-37.0); MCV 94.1 fL (80.0-100.0); Mean Platelet Volume 8.3; Monocytes # (A) 0.3 k/uL (0-1.0); Monocytes % (A) 8 %; Neutrophils % (A) 51 %; Platelet Count 141 k/uL (150-450); Poikilocytosis Slight; RBC 3.95 m/uL (4.30-5.90); RDW 13.1 % (11.5-15.5); WBC 3.9 k/uL (3.8-10.6)
[2022-11-09 07:58] LABS: African American GFR (CKD) >90 (>60 ml/min/1.73 sqM); Anion Gap 6 mmol/L; Blood Urea Nitrogen 16 mg/dL (9-20); Calcium 8.4 mg/dL (8.4-10.2); Carbon Dioxide 32 mmol/L (22-30); Chloride 101 mmol/L (98-107); Glucose 111 mg/dL (74-99); Non-African American GFR(CKD) >90 (>60 ml/min/1.73 sqM); Potassium 3.4 mmol/L (3.5-5.1); Sodium 139 mmol/L (137-145)
[2022-11-09 08:16] VITALS: BP 157/80; PULSE 67; RESP 17; TEMP 97.8
[2022-11-09] MEDS: ASCORBIC ACID 500 MG TAB PO SCH (09:07)
[2022-11-09] MEDS: carvediloL 12.5 MG TAB PO SCH (09:07)
[2022-11-09] MEDS: INSULIN ASPART (NovoLOG) 100 UNIT/ML VIAL SQ SCH (09:07)
[2022-11-09] MEDS: PREGABALIN 75 MG CAP PO SCH (09:07)
[2022-11-09] MEDS: LOSARTAN 50 MG TAB PO SCH (09:07)
[2022-11-09] MEDS: FLUoxetine HCL 20 MG CAP PO SCH (09:07)
[2022-11-09] MEDS: FERROUS SULFATE 325 MG TAB PO SCH (09:07)
[2022-11-09] MEDS: hydroCHLOROthiazide 12.5 MG CAP PO SCH (09:07)
[2022-11-09] MEDS: amLODIPine 5 MG TAB PO SCH (09:08)
[2022-11-09] MEDS: ENOXAPARIN 40 MG/0.4 ML SYRINGE SQ SCH (09:08)
[2022-11-09] MEDS: ZINC SULFATE 220 MG CAP PO SCH (09:08)
[2022-11-09] MEDS: FAMOTIDINE 20 MG TAB PO SCH (09:08)
[2022-11-09] MEDS: SODIUM CHLORIDE 0.9% 1,000 ML IV SCH (10:33)
[2022-11-09] MEDS: VASCEPA 1 GM PO SCH (10:34)
--- NOTE | 2022-11-09 12:10 | P.PN ---
Subjective Progress Note Date: 11/09/22 Principal diagnosis: Left diabetic foot ulcer and left leg cellulitis Patient is a 52-year-old male with multiple comorbidities including diabetes mellitus hypertension and sleep apnea history of diabetic foot infection requiring transplant also amputation of the left foot in this patient who did have a chronic nonhealing wound to the left foot transmetatarsal amputat ion site on the medial aspect, presented to hospital with left lower extremity cellulitis and left transplant also amputation site wound infection. On today's evaluation that is 11/09/2022, the patient continues to be afebrile, the patient is breathing comfortably on room air , the patient denies chest pain shortness of breath or cough, the patient pain left lower extremity swelling redness has significantly decreased in intensity and no drainage, patient denies any nausea no vomiting no abdominal pain no diarrhea Objective - Vital Signs Vital signs: Vital Signs Temp 97.8 F 11/09/22 07:00 Pulse 67 11/09/22 08:00 Resp 17 11/09/22 08:00 BP 157/80 11/09/22 07:00 Pulse Ox 95 11/09/22 07:00 FiO2 Intake & Output 11/08/22 11/09/22 11/09/22 18:59 06:59 18:59 Intake Total 480 600 Balance 480 600 Intake: Oral 480 600 Other: # Voids 2 2 - Exam GENERAL DESCRIPTION: A middle-aged male lying in bed in no distress RESPIRATORY SYSTEM: Unlabored breathing , decreased breath sounds at bases HEART: S1 S2 regular rate and rhythm , ABDOMEN: Soft , no tenderness EXTREMITIES: Left transmetatarsal amputation site wound currently dressed no drainage of the dressing left leg redness has decreased and not as warm to touch - Labs CBC & Chem 7: 11/09/22 06:12 11/09/22 06:12 Labs: Abnormal Lab Results - Last 24 Hours (Table) 11/08/22 11/09/22 11/09/22 Range/Units 20:37 06:12 06:12 RBC 3.95 L (4.30-5.90) m/uL Hgb 12.9 L (13.0-17.5) gm/dL Hct 37.2 L (39.0-53.0) % Plt Count 141 L (150-450) k/uL Potassium 3.4 L (3.5-5.1) mmol/L Carbon Dioxide 32 H (22-30) mmol/L Glucose 111 H (74-99) mg/dL POC Glucose (mg/dL) 121 H (70-110) mg/dL 11/09/22 Range/Units 07:02 RBC (4.30-5.90) m/uL Hgb (13.0-17.5) gm/dL Hct (39.0-53.0) % Plt Count (150-450) k/uL Potassium (3.5-5.1) mmol/L Carbon Dioxide (22-30) mmol/L Glucose (74-99) mg/dL POC Glucose (mg/dL) 112 H (70-110) mg/dL Microbiology - Last 24 Hours (Table) 11/07/22 10:40 Gram Stain - Preliminary Foot - Left Wound Culture - Preliminary Beta Hemolytic Strep Group C Presumptive Staph aureus 11/06/22 12:39 Blood Culture - Preliminary Blood No Growth after 48 hours 11/06/22 12:39 Blood Culture - Preliminary Blood No Growth after 48 hours Assessment and Plan (1) Cellulitis of left leg Current Visit: Yes Status: Acute Code(s): L03.116 - CELLULITIS OF LEFT LOWER LIMB SNOMED Code(s): 556333602 (2) Wound of foot Current Visit: Yes Status: Acute Code(s): S91.309A - UNSPECIFIED OPEN WOUND, UNSPECIFIED FOOT, INITIAL ENCOUNTER SNOMED Code(s): 260520404 Plan: 1patient presented to hospital with extensive left lower extremity cellulitis source is likely left diabetic foot wound infection to the source of this cellulitis and will need to cover for the gram-positive skin marisa 2-blood culture has been obtained which are negative so far outpatient culture done on growing group C streptococcus 3-patient has shown clinical improvement with the cefazolin and plan is to finish therapy with oral Keflex prescription was sent to the pharmacy Time with Patient: Less than 30
--- NOTE | 2022-11-09 21:27 | P.DS ---
Providers Date of admission: 11/06/22 14:03 Expected date of discharge: 11/09/22 Attending physician: Raul Todd Consults: 11/06/22 14:02 Consult Physician Routine Consulting Provider: Geoff Briceno Consult Reason/Comments: Cellulitis left leg, foot wound Do you want consulting provider notified?: Yes 11/06/22 20:07 Consult Physician Routine Consulting Provider: Chito Gomez Consult Reason/Comments: Left foot wound Do you want consulting provider notified?: Yes Primary care physician: [facility] Course: Chief Complaint: Left foot wound This is a pleasant 52-year-old patient who follows with Dr. Vila. Chronic stable medical conditions include diabetes, previous DVT, GERD, hypertension, obstructive sleep apnea, peripheral neuropathy with removal of all 10 toes, DVT in the right shoulder secondary to PICC line, obstructive sleep apnea uses CPAP. Has had previous bariatric surgery. Anxiety depression. Patient follows at the wound care center with Dr. harrington. He has noticed that the left foot has been developing wound that healed then when he puts his shoes on 8 breaks down again. On this occasion for last 4-5 days wound at the position of the big toe has been draining for last 4-5 days. Fever or chills. Pain is present. Appetite is fair. No change in bowel habits. Sent in for the same. 11/07/2022: Patient seen by Dr. Gomez from vascular surgery. He did wound care change. No need for any debridement. Discussed with him. Antibiotics to continue. Cultures pending. On IV Ancef. November 08: Doing well. Pain control. IV Ancef. Cultures growing beta hemolytic strep group C. Not finalized. November 09: Doing well. Pain well controlled. Discussed with ID. Giselle for CA. Patient followed the wound care center with Dr. harrington. Keflex 500 mg 4 times a day for 10 days Past medical history to include: Diabetes, GERD, hypertension, obstructive sleep apnea uses CPAP, neuropathy of all 4 extremities, bariatric surgery, on 10 over digits amputated. Depression and anxiety. Social history: Quit smoking cigars in 2003. Alcohol rarely. Does use marijuana. Lives with his sister Physical examination: VITAL SIGNS: 97.8, 67, 17, 1 5780, 95% room air GENERAL: Propped up in bed comfortable EYES: Pupils equal. Conjunctiva normal. HEENT: External appearance of nose and ears normal, oral cavity grossly normal. NECK: JVD not raised; masses not palpable. HEART: First and second heart sounds are normal; no edema. LUNGS: Respiratory rate normal; decreased breath sounds. ABDOMEN: Soft, nontender, liver spleen not palpable, no masses palpable. PSYCH: Alert and oriented x3; mood and affect normal. MUSCULOSKELETAL:No Clubbing/cyanosis;muscles-grossly intact. Area of blotchy redness left lower extremity, between the knee and the ankle. Wound at the site of the left foot big toe. All 10 toes are missing NEUROLOGICAL: [Cranial nerves grossly intact; no facial asymmetry, power and sensation are decreased distally INVESTIGATIONS, reviewed in the clinical context: November 09: White count 3.9 1112.9 creatinine 0.78 White count 16 globin 13.1 platelets 136 potassium 3.3 BUN 13 creatinine 0.74 Left foot x-ray diffuse soft tissue edema but no destructive changes seen of osteomyelitis. Tibia-fibula left: Changes of arthropathy Assessment and plan: - recurrent wound at a previous amputation site of the left big toe that keeps getting worse after he wears boots. also neuropathy in the feet. With fever chills pain and for last for 5 days and draining. IV Ancef. Cultures-beta hemolytic strep group C. Seen by Dr. Gomez from vascular. No debridement at this point. Aquacel silver wound care. Discharge with 10 days of Keflex 500 mg 4 times a day. Follow up at wound care center with Dr. harrington -Diabetes mellitus type 2 byvika, follow sliding scale insulin -Depression Prozac Cymbalta -Essential hypertension Continue blood pressure medications -GERD Prilosec -Diabetic peripheral neuropathy Lyrica -Full code Disposition: Home Plan - Discharge Summary Discharge Rx Participant: No New Discharge Prescriptions: New Cephalexin [Keflex] 500 mg PO Q6HR 10 Days #40 cap Continue Pregabalin [Lyrica] 150 mg PO BID FLUoxetine HCL [PROzac] 20 mg PO QAM DULoxetine HCL [Cymbalta] 60 mg PO HS Olmesartan/Amlodipin/Hcthiazid [Tribenzor 40-10-25 mg Tablet] 0.5 tab PO DAILY Exenatide Microspheres [Bydureon Pen] 2 mg SQ SEARS ALPRAZolam [Xanax] 1 mg PO BID PRN PRN Reason: Anxiety carvediloL 25 mg PO BID Ergocalciferol [Vitamin D2 (1250 Mcg = 29687 Iu)] 50,000 unit PO SEARS Zinc 50 mg PO DAILY Ascorbic Acid [Vitamin C] 1,000 mg PO DAILY Vascepa 1gm 1 gm PO BID Ferrous Sulfate [Iron (65 MG Elemental)] 325 mg PO DAILY Omeprazole [PriLOSEC] 40 mg PO QAM Discharge Medication List FLUoxetine HCL [PROzac] 20 mg PO QAM 05/28/16 [History] Pregabalin [Lyrica] 150 mg PO BID 05/28/16 [History] DULoxetine HCL [Cymbalta] 60 mg PO HS 06/29/16 [History] ALPRAZolam [Xanax] 1 mg PO BID PRN 02/15/19 [History] Exenatide Microspheres [Bydureon Pen] 2 mg SQ SEARS 02/15/19 [History] Olmesartan/Amlodipin/Hcthiazid [Tribenzor 40-10-25 mg Tablet] 0.5 tab PO DAILY 02/15/19 [History] carvediloL 25 mg PO BID 12/28/19 [History] Ergocalciferol [Vitamin D2 (1250 Mcg = 91599 Iu)] 50,000 unit PO SEARS 12/20/20 [History] Ferrous Sulfate [Iron (65 MG Elemental)] 325 mg PO DAILY 06/11/21 [History] Vascepa 1gm 1 gm PO BID 06/11/21 [History] Zinc 50 mg PO DAILY 06/11/21 [History] Omeprazole [PriLOSEC] 40 mg PO QAM 05/28/22 [History] Ascorbic Acid [Vitamin C] 1,000 mg PO DAILY 11/06/22 [History] Cephalexin [Keflex] 500 mg PO Q6HR 10 Days #40 cap 11/09/22 [Rx] Follow up Appointment(s)/Referral(s): [facility] [Other] - 1 Week Willard Vila MD [Primary Care Provider] - 1-2 days Geoff Briceno MD [STAFF PHYSICIAN] - 11/16/22 2:45 pm Patient Instructions/Handouts: Cellulitis (GEN) Discharge Disposition: HOME SELF-CARE
== END 2022-11-09 12:51 | disposition home or self-care (01) ==
LOC: EC 11:53 → 6NMEDSUR 14:03
PROVIDERS: ADMIT Hospitalist; ATTEND Hospitalist
DX: L03.116 Cellulitis of left lower limb (principal); E11.621 Type 2 diabetes mellitus with foot ulcer; L97.529 Non-pressure chronic ulcer of other part of left foot with unspecified severity; L08.9 Local infection of the skin and subcutaneous tissue, unspecified; K21.9 Gastro-esophageal reflux disease without esophagitis; I10 Essential (primary) hypertension; E11.42 Type 2 diabetes mellitus with diabetic polyneuropathy; F32.A Depression, unspecified; F41.9 Anxiety disorder, unspecified; G47.33 Obstructive sleep apnea (adult) (pediatric); Z86.73 Personal history of transient ischemic attack (TIA), and cerebral infarction without residual deficits; Z86.718 Personal history of other venous thrombosis and embolism; Z87.891 Personal history of nicotine dependence; Z89.422 Acquired absence of other left toe(s); Z89.421 Acquired absence of other right toe(s); Z98.84 Bariatric surgery status; Z89.412 Acquired absence of left great toe; Z89.411 Acquired absence of right great toe; Z79.899 Other long term (current) drug therapy
CPT/HCPCS: 96361 ×4; 96366 ×3; 96367 ×2; 96372 ×2; 96376 ×3; 96365; 96375; 99284; 36415; 80053; 80048; 82565; 83605; 85025 ×2; 85610; 85730; 87040; 87070; 87205; 87077; 87186; 73590; 73630; G0378 ×4; J3370 ×2; J0690 ×4; J1650 ×4; J0692; J1170 ×3

== ENCOUNTER → 2023-05-14 | Outpatient (CLI) | payer MEDICARE, OTHER ==
[2023-05-14 15:07] LABS: Basophils # (A) 0.03 X 10*3/uL (0.00-0.10); Basophils % (A) 0.5 %; Eosinophils # (A) 0.29 X 10*3/uL (0.04-0.35); Eosinophils % (A) 4.7 %; HCT 40.4 % (39.6-50.0); Lymphocytes # (A) 1.29 X 10*3/uL (0.90-5.00); Lymphocytes % (A) 21.1 %; MCH 29.9 pg (27.0-32.0); MCHC 32.2 d/dL (32.0-37.0); MCV 92.9 FL (80.0-97.0); Mean Platelet Volume 10.5 FL (9.5-12.2); Monocytes # (A) 0.47 X 10*3/uL (0.20-1.00); Monocytes % (A) 7.7 %; NRBC Per 100 WBC 0 X 10*3/uL (0.00-0.01); Neutrophils # (A) 4.01 X 10*3/uL (1.80-7.70); Neutrophils % (A) 65.7 %; Platelet Count 170 X 10*3/uL (140-440); RBC 4.35 X 10*6/uL (4.40-5.60); WBC 6.11 X 10*3/uL (4.50-10.00)
[2023-05-14 15:24] LABS: ALT 43 U/L (10-49); AST 37 U/L (14-35); Albumin 3.9 d/dL (3.8-4.9); Albumin/Globulin Ratio 1.22 Ratio (1.60-3.17); Alkaline Phosphatase 174 U/L (41-126); Blood Urea Nitrogen 12.4 mg/dL (9.0-27.0); Calcium 9.3 mg/dL (8.7-10.3); Carbon Dioxide 28.2 mmol/L (21.6-31.8); Chloride 104 mmol/L (96-109); Globulin 3.2 d/dL (1.6-3.3); Glucose 95 mg/dL (70-110); Potassium 4.1 mmol/L (3.5-5.5); Sodium 141 mmol/L (135-145); Total Bilirubin 0.3 mg/dL (0.3-1.2); Total Protein 7.1 d/dL (6.2-8.2)
[2023-05-14 16:18] LABS: Erythrocyte Sedimentation Rate 34 mm/Hr (0-20)
== END | disposition home or self-care (01) ==
LOC: LABWHC1 10:44
PROVIDERS: ATTEND Thoracic Surgery (Cardiothoracic Vascular Surgery)
DX: L03.116 Cellulitis of left lower limb (principal); E08.621 Diabetes mellitus due to underlying condition with foot ulcer; L97.522 Non-pressure chronic ulcer of other part of left foot with fat layer exposed; L97.512 Non-pressure chronic ulcer of other part of right foot with fat layer exposed
CPT/HCPCS: 36415; 80053; 83036; 85025; 85652; 86140

== ENCOUNTER → 2023-05-18 | Outpatient (CLI) | payer MEDICARE, OTHER ==
--- NOTE | 2023-05-18 18:50 | MR ---
EXAMINATION TYPE: MR foot LT wo/w con DATE OF EXAM: 05/18/2023 COMPARISON: Radiograph 11/06/2022 HISTORY: 52-year-old male L97.522, Left foot pain, toes amputated, diabetes mellitus. TECHNIQUE: Multiplanar, multisequence images of the left foot were obtained before and after administ ration of 12.5 mL intravenous Gadavist gadolinium contrast. FINDINGS: Prior midfoot amputation. Extensive soft tissue edema is present throughout but especially along the distal and dorsal aspect of the amputation stump with overlying soft tissue dressing. Some patchy bone marrow edema is present, for example, within the medial cuneiform and residual porti ons of the first, second, and third metatarsal bases. These regions show corresponding patchy mildly diminished marrow signal but no bautista bone marrow replacement at this time. There is corresponding po stcontrast enhancement as would be expected. Moderate-sized plantar heel spur. No abscess is identified. IMPRESSION: 1. Prior midfoot amputation. There is extensive diffuse soft tissue edema throughout the visualized a nkle and foot likely reflecting neuropathic change but present to a greater degree along the distal a nd dorsal aspect of the amputation stump. Overlying soft tissue dressing here. Consider cellulitis. 2. There is patchy bone marrow edema involving the underlying medial cuneiform and residual portions of the first, second, and third metatarsal bases. These areas show corresponding patchy mildly dimini shed marrow signal but no bautista bone marrow replacement at this time. Impending osteomyelitis at thes e sites is not excluded. Surveillance follow-up advised.
== END | disposition home or self-care (01) ==
LOC: RADMRIMAIN 17:17
PROVIDERS: ATTEND Podiatrist
DX: L97.522 Non-pressure chronic ulcer of other part of left foot with fat layer exposed (principal); R60.0 Localized edema
CPT/HCPCS: 73720; A9585

== ENCOUNTER → 2023-05-19 | Outpatient (CLI) | payer MEDICARE, OTHER ==
[2023-05-19 16:34] LABS: INR 0.9 (<1.2); Prothrombin Time 9.8 sec (9.0-12.0)
[2023-05-19 21:27] LABS: Chol/HDL Ratio 4.62 Ratio; Iron 63 UG/DL (65-175); Magnesium 2.1 mg/dL (1.5-2.4); Phosphorus 3.4 mg/dL (2.4-5.1)
[2023-05-19 21:28] LABS: % Iron Saturation 22.03 (15.00-50.00); Total Iron Binding Capacity 286 UG/DL (228-460)
[2023-05-19 23:27] LABS: Prealbumin 20.7 mg/dL (18.0-42.0)
[2023-05-20 13:12] LABS: Zinc, Serum 70 ug/dL (60-130)
[2023-05-21 08:51] LABS: Vitamin A 40 ug/dL (38-106)
[2023-05-21 09:55] LABS: Vit B1(Thiamine) 69 ug/L (38-122)
== END | disposition home or self-care (01) ==
LOC: LABWHC1 15:03
PROVIDERS: ATTEND Surgery Plastic and Reconstructive Surgery
DX: E66.01 Morbid (severe) obesity due to excess calories (principal); D50.8 Other iron deficiency anemias; E44.0 Moderate protein-calorie malnutrition; E44.1 Mild protein-calorie malnutrition; E55.9 Vitamin D deficiency, unspecified; K74.1 Hepatic sclerosis; N19 Unspecified kidney failure; K50.90 Crohn's disease, unspecified, without complications; E45 Retarded development following protein-calorie malnutrition; T56.894A Toxic effect of other metals, undetermined, initial encounter
CPT/HCPCS: 36415; 80061; 82306; 82525; 82607; 82728; 82746; 83540; 83550; 83735; 83970; 84100; 84134; 84255; 84425; 84443; 84590; 84630; 85610; 85730

== ENCOUNTER → 2023-08-20 | Outpatient (CLI) | payer MEDICARE ==
--- NOTE | 2023-08-20 12:27 | US ---
EXAMINATION TYPE: US venous doppler duplex LE LT DATE OF EXAM: 08/20/2023 12:23 PM COMPARISON: NONE CLINICAL INDICATION: Male, 52 years old with history of M79.605 pain in limb left leg; SIDE PERFORMED: TECHNIQUE: The lower extremity deep venous system is examined utilizing real time linear array sonog bong with graded compression, doppler sonography and color-flow sonography. VESSELS IMAGED: Common Femoral Vein Deep Femoral Vein Greater Saphenous Vein * Femoral Vein Popliteal Vein Small Saphenous Vein * Proximal Calf Veins (* superficial vessels) Left Leg: Negative for acute DVT, thickened venous gonzalez within popliteal veins IMPRESSION: 1. Left lower extremity ultrasound negative for deep venous thrombosis.
== END | disposition home or self-care (01) ==
LOC: RADUSWWP 11:47
PROVIDERS: ATTEND Podiatrist
DX: L03.116 Cellulitis of left lower limb (principal); I73.9 Peripheral vascular disease, unspecified; L97.512 Non-pressure chronic ulcer of other part of right foot with fat layer exposed; L97.522 Non-pressure chronic ulcer of other part of left foot with fat layer exposed; E08.621 Diabetes mellitus due to underlying condition with foot ulcer

== ENCOUNTER 2023-08-30 06:40 | Day surgery (SDC) | payer MEDICARE, OTHER ==
[2023-08-27 12:06] VITALS: BMI 30.4
[~2023-08-30 06:40] MED LIST changes: +LIDOCAINE 1% (10MG/ML) FOR IV START INTRADERMA PRN; -LIDOCAINE 1% 20 ML VIAL (10MG/ML) FOR IV START INTRADERMA PRN
--- NOTE | 2023-08-30 06:45 | P.GSHP ---
History of Present Illness H&P Date: 08/30/23 CHIEF COMPLAINT: GERD and colon screen HISTORY OF PRESENT ILLNESS: The patient is a 52-year-old male who presents with gastroesophageal reflux disease and need for colon screen. Upper and lower endoscopy were offered for further evaluation and management. PAST MEDICAL HISTORY: Please see list. PAST SURGICAL HISTORY: Please see list. MEDICATIONS: Please see list. ALLERGIES: Please see list. SOCIAL HISTORY: No illicit drug use FAMILY HISTORY: No reports of Crohn disease or ulcerative colitis. REVIEW OF ORGAN SYSTEMS: CONSTITUTIONAL: No reports of fevers or chills. GI: Denies any blood in stools or constipation. PHYSICAL EXAM: VITAL SIGNS: Stable GENERAL: Well-developed pleasant in no acute distress. HEENT: No scleral icterus. Extraocular movements grossly intact. Moist buccal mucosa. NECK: Supple without lymphadenopathy. CHEST: Unlabored respirations. Equal bilateral excursions. CARDIOVASCULAR: Regular rate and rhythm. Distal 2+ pulses. ABDOMEN: Soft, nondistended. MUSCULOSKELETAL: No clubbing, cyanosis, or edema. ASSESSMENT: 1. Gastroesophageal reflux disease 2. Colon screen. PLAN: 1. Recommend proceeding with an upper and lower endoscopy Past Medical History Past Medical History: CVA/TIA, Diabetes Mellitus, Deep Vein Thrombosis (DVT), GERD/Reflux, Hypertension, Neurologic Disorder, Sleep Apnea/CPAP/BIPAP Additional Past Medical History / Comment(s): STATES OPEN WOULD ON LEFT FOOT, STATE DR. WEBER IS AWARE. Neuropathy in all four extremities which has led to removal of all ten of his toes, DVT hx in left leg, DVT right shoulder secondary to PICC, stress test showed "Mini heart attack", 02/15/19, states no residual effects, cpap History of Any Multi-Drug Resistant Organisms: MRSA Date of last positivie culture/infection: 2014 MDRO Source:: foot 2014 Past Surgical History: Bariatric Surgery, Orthopedic Surgery Additional Past Surgical History / Comment(s): 12/18/19 EGD. Bilateral feet all digits amputated. Staph infection in left thigh secondary to abcess removed surgically, multiple debridments and skin graft surgeries to bilateral feet, gastric bypass 01-01-20 colonoscopy with polyps and egd Past Anesthesia/Blood Transfusion Reactions: Previous Problems w/ Anesthesia, Postoperative Nausea & Vomiting (PONV) Additional Past Anesthesia/Blood Transfusion Reaction / Comment(s): had "high fever last surgery 04/2019, [facility]" anesthesia record obtained from then, no mention of temp or malignant hyperthermia. Smoking Status: Current some day smoker, Vaper - Past Family History Father Family Medical History: Congestive Heart Failure (CHF), CVA/TIA Additional Family Medical History / Comment(s): at age 79. Mother Family Medical History: Cancer, COPD Additional Family Medical History / Comment(s): Leukemia, at age 80. Medications and Allergies Home Medications Medication Instructions Recorded Confirmed Type FLUoxetine HCL [PROzac] 20 mg PO DAILY 05/28/16 08/27/23 History Pregabalin [Lyrica] 150 mg PO BID 05/28/16 08/27/23 History DULoxetine HCL [Cymbalta] 60 mg PO HS 06/29/16 08/27/23 History ALPRAZolam [Xanax] 1 mg PO BID PRN 02/15/19 08/27/23 History Olmesartan/Amlodipin/Hcthiazid 0.5 tab PO DAILY 02/15/19 08/27/23 History [Tribenzor 40-10-25 mg Tablet] carvediloL 25 mg PO BID 12/28/19 08/27/23 History Ergocalciferol [Vitamin D2 (1250 50,000 unit PO SEARS 12/20/20 08/27/23 History Mcg = 51119 Iu)] Ferrous Sulfate [Iron (65 MG 325 mg PO DAILY 06/11/21 08/27/23 History Elemental)] Zinc 50 mg PO DAILY 06/11/21 08/27/23 History Omeprazole [PriLOSEC] 40 mg PO DAILY 05/28/22 08/27/23 History icosapent ethyL [Icosapent Ethyl] 1 gm PO HS 12/18/22 08/27/23 History Empagliflozin [Jardiance] 10 mg PO DAILY 05/19/23 08/27/23 History Fluticasone Nasal [place] [Flonase 1 spray EA NOSTRIL DAILY 05/19/23 08/27/23 History Nasal [place]] Semaglutide [Ozempic] 2 mg SQ SEARS 05/19/23 08/27/23 History Amoxic-Pot Clav 500-125 mg 500 mg PO BID 08/27/23 08/27/23 History [Augmentin 500-125 mg] Loratadine [Claritin] 10 mg PO DAILY 08/27/23 08/27/23 History Allergies Allergy/AdvReac Type Severity Reaction Status Date / Time adhesive tape Allergy Rash/Hives Verified 08/27/23 11:35
[2023-08-30 07:23] VITALS: TEMP 97.6
[2023-08-30 07:32] LABS: Glucose,Whole Blood 151 mg/dL (70-110)
[2023-08-30] MEDS ORDERED: LIDOCAINE 1% INJ 10MG/ML (20 ML MDV) ONE (07:44)
[2023-08-30] MEDS ORDERED: PROPOFOL 10 MG/ML 20 ML VIAL IV ONE (07:44)
--- NOTE | 2023-08-30 07:52 | P.PCN ---
Date of Procedure: 08/30/23 Description of Procedure: PREOPERATIVE DIAGNOSES: 1. Gastroesophageal reflux disease 2. Nausea and vomiting. 3. History of gastric bypass. 4. History of gastric ulcers. POSTOPERATIVE DIAGNOSES: 1. Gastroesophageal reflux disease 2. Nausea and vomiting. 3. History of gastric bypass. 4. History of gastric ulcers. PROCEDURE PERFORMED: Esophagogastrojejunoscopy with biopsies of esophagus, gastric pouch, jejunum SURGEON: Elizabeth Kolb MD ANESTHESIA: MAC. INDICATIONS: The patient is a 52-year-old male with prior history of Silke-en-Y gastric bypass approximately 3 years ago. In the last several weeks, he has had intermittent nausea and vomiting, particularly of the epigastric abdominal pain. With his history of Silke-en-Y gastric bypass, upper endoscopy was offered for further evaluation and management. DESCRIPTION: Patient was brought to the endoscopy suite and laid in the left lateral decubitus position. After adequate IV sedation, a bite block was placed. An Olympus gastroscope was passed along the posterior oropharynx down to the distal esophagus where the squamocolumnar junction was found at approximately 45 cm from the incisors. His anastomosis was found at 52 cm, consistent with approximately 7 cm gastric pouch. The scope was advanced 60 cm from the incisors. No evidence of foreign body was found. No evidence of active gastrojejunal ulcerations were encountered. The GI tract was desufflated. The patient tolerated the procedure well. FINDINGS: 1. No acute gastrojejunal ulceration. 2. No foreign body found along the anastomosis. 3. Biopsies obtained of esophagus, gastric pouch and jejunum PLAN: 1. Recommend upper endoscopy as needed. 2. May benefit from additional studies with history of epigastric abdominal pain such as upper GI barium study.
--- NOTE | 2023-08-30 08:29 | P.PCN ---
Date of Procedure: 08/30/23 Description of Procedure: PREOPERATIVE DIAGNOSIS: Personal history of colon polyps Family history malignant colon polyps Colonoscopy screening POSTOPERATIVE DIAGNOSIS: Tubular adenoma ascending colon OPERATION: Colonoscopy to the ileocecal valve and appendiceal orifice, cecum Colonoscopy with hot snare polypectomy SURGEON: Elizabeth Kolb MD. ANESTHESIA: MAC. INDICATIONS: The patient is an 52-year-old male who presents family history of malignant colon polyps and personal history of colon polyps. Last colonoscopy 5 years. Benefits and risks were described and informed consent was obtained. DESCRIPTION OF PROCEDURE: The patient had undergone Clin prep. The patient had been brought into the operating room and laid in the left lateral decubitus position. After adequate intravenous sedation, the rectum was examined with 2% lidocaine jelly. The prostate was unremarkable. External hemorrhoids were encountered. The rectal tone was within normal limits. No lesions were palpated in the rectal vault. An Olympus colonoscope was advanced until the cecum, ileocecal valve and appendiceal orifice were clearly viewed. The prep was good. No large sigmoid diverticulosis was encountered. Colonic polyps were found and removed. No evidence of focal colitis was found. Retroflexion of the scope demonstrated grade 2 internal hemorrhoids without active bleeding or inflammation. The colon was desufflated. The patient had tolerated the procedure well. Withdrawal time was over 6 minutes. FINDINGS: Aronchick preparation quality scale 2 (1-5) Internal hemorrhoids, grade 2 External hemorrhoids, grade 2. No arteriovenous malformations. No large sigmoid diverticulosis Removal of 2 polyps: - Snare polypectomy ascending colon 2, 5 to 8 mm tubulovillous adenoma No focal colitis. RECOMMENDATIONS: Repeat colonoscopy in 3 years, 2022 Plan - Discharge Summary Discharge Rx Participant: No New Discharge Prescriptions: Continue Pregabalin [Lyrica] 150 mg PO BID FLUoxetine HCL [PROzac] 20 mg PO DAILY DULoxetine HCL [Cymbalta] 60 mg PO HS Olmesartan/Amlodipin/Hcthiazid [Tribenzor 40-10-25 mg Tablet] 0.5 tab PO DAILY ALPRAZolam [Xanax] 1 mg PO BID PRN PRN Reason: Anxiety carvediloL 25 mg PO BID Ergocalciferol [Vitamin D2 (1250 Mcg = 08368 Iu)] 50,000 unit PO SEARS Zinc 50 mg PO DAILY icosapent ethyL [Icosapent Ethyl] 1 gm PO HS Fluticasone Nasal [place] [Flonase Nasal [place]] 1 spray EA NOSTRIL DAILY Empagliflozin [Jardiance] 10 mg PO DAILY Amoxic-Pot Clav 500-125 mg [Augmentin 500-125 mg] 500 mg PO BID Ferrous Sulfate [Iron (65 MG Elemental)] 325 mg PO DAILY Omeprazole [PriLOSEC] 40 mg PO DAILY Semaglutide [Ozempic] 2 mg SQ SEARS Loratadine [Claritin] 10 mg PO DAILY Discharge Medication List FLUoxetine HCL [PROzac] 20 mg PO DAILY 05/28/16 [History] Pregabalin [Lyrica] 150 mg PO BID 05/28/16 [History] DULoxetine HCL [Cymbalta] 60 mg PO HS 06/29/16 [History] ALPRAZolam [Xanax] 1 mg PO BID PRN 02/15/19 [History] Olmesartan/Amlodipin/Hcthiazid [Tribenzor 40-10-25 mg Tablet] 0.5 tab PO DAILY 02/15/19 [History] carvediloL 25 mg PO BID 12/28/19 [History] Ergocalciferol [Vitamin D2 (1250 Mcg = 64030 Iu)] 50,000 unit PO SEARS 12/20/20 [History] Ferrous Sulfate [Iron (65 MG Elemental)] 325 mg PO DAILY 06/11/21 [History] Zinc 50 mg PO DAILY 06/11/21 [History] Omeprazole [PriLOSEC] 40 mg PO DAILY 05/28/22 [History] icosapent ethyL [Icosapent Ethyl] 1 gm PO HS 12/18/22 [History] Empagliflozin [Jardiance] 10 mg PO DAILY 05/19/23 [History] Fluticasone Nasal [place] [Flonase Nasal [place]] 1 spray EA NOSTRIL DAILY 05/19/23 [History] Semaglutide [Ozempic] 2 mg SQ SEARS 05/19/23 [History] Amoxic-Pot Clav 500-125 mg [Augmentin 500-125 mg] 500 mg PO BID 08/27/23 [History] Loratadine [Claritin] 10 mg PO DAILY 08/27/23 [History] Follow up Appointment(s)/Referral(s): Elizabeth Kolb MD [STAFF PHYSICIAN] - 09/15/23 Patient Instructions/Handouts: *Surgery [facility] - (Anesthesia) Discharge Instructions Outpatient Surgery, Colorectal Polyps (GEN) Activity/Diet/Wound Care/Special Instructions: Repeat colonoscopy 3 years, 2025 Discharge Disposition: HOME SELF-CARE
[2023-08-30 08:31] LABS: Glucose,Whole Blood 146 mg/dL (70-110)
[2023-08-30 08:36] VITALS: BP 121/74; PULSE 75; RESP 17
== END 2023-08-30 09:05 | disposition home or self-care (01) ==
LOC: ORWHC2ENDO 06:40
PROVIDERS: ATTEND Surgery Plastic and Reconstructive Surgery
DX: Z12.11 Encounter for screening for malignant neoplasm of colon (principal); K29.50 Unspecified chronic gastritis without bleeding; K21.00 Gastro-esophageal reflux disease with esophagitis, without bleeding; D12.2 Benign neoplasm of ascending colon; I25.2 Old myocardial infarction; F17.290 Nicotine dependence, other tobacco product, uncomplicated; E11.9 Type 2 diabetes mellitus without complications; I63.9 Cerebral infarction, unspecified; I82.409 Acute embolism and thrombosis of unspecified deep veins of unspecified lower extremity; Z80.0 Family history of malignant neoplasm of digestive organs; Z86.010 Personal history of colon polyps; Z98.84 Bariatric surgery status; Z87.11 Personal history of peptic ulcer disease; Z86.73 Personal history of transient ischemic attack (TIA), and cerebral infarction without residual deficits; Z82.3 Family history of stroke; Z79.84 Long term (current) use of oral hypoglycemic drugs; Z79.899 Other long term (current) drug therapy; Z91.048 Other nonmedicinal substance allergy status; Z98.890 Other specified postprocedural states
CPT/HCPCS: 88305; 45385; 43239; J2001; J2704

== ENCOUNTER → 2023-09-15 | Outpatient (CLI) | payer MEDICARE, OTHER ==
[2023-09-15 14:14] VITALS: BP 126/78; PULSE 71; TEMP 98.3; BMI 31.4
--- NOTE | 2023-09-15 14:53 | P.BASOAP ---
Subjective Progress Note Date: 09/15/23 He is still losing weight. He is still having troubles with his foot ulcer. Objective - Vital Signs Vital signs: Vital Signs Temp 98.3 F 09/15/23 14:09 Pulse 71 09/15/23 14:09 Resp BP 126/78 09/15/23 14:09 Pulse Ox FiO2 Intake & Output 09/14/23 09/15/23 09/15/23 18:59 06:59 18:59 Weight 114.759 kg Assessment/Plan Plan: Date: 09/15/23 Initial Weight: 154.63 kg Initial BMI: 42.3 Current Weight: 114.759 kg Current BMI: 31.4 Type of Surgery: Total Volume in Band: Previous Volume: Volume Removed: Volume Added: Band Size:
== END ==
LOC: BARWHC3 13:01
PROVIDERS: ATTEND Surgery Plastic and Reconstructive Surgery
DX: Z53.9 Procedure and treatment not carried out, unspecified reason (principal)
CPT/HCPCS: 99211

== ENCOUNTER → 2023-10-29 | Outpatient (CLI) | payer MEDICARE, OTHER ==
--- NOTE | 2023-10-29 15:13 | XR ---
EXAMINATION TYPE: XR foot complete 3 views LT DATE OF EXAM: 10/29/2023 Comparison: 11/06/2022 Clinical History: 52-year-old male osteomyelitis, E08.621 Findings: There is a midfoot amputation redemonstrated. Osteotomy margins of the level of the proximal metatars al shafts. There is soft tissue ulcer at the stump. There has been some interval bone loss along the lateral margin of the osteotomy of the first metatarsal on the oblique view. There has also been some softening of the osteotomy margins at the second metatarsal. Moderate sized plantar heel spur. No ac marlene fracture seen. Impression: Previous mid foot amputation with a large soft tissue ulcer at the stump. There is subtle bone loss a long the lateral margin of the first metatarsal osteotomy on the oblique view. The oblique view also shows some softening of the second metatarsal osteotomy margin. Unable to exclude early osteomyelitis at both of these sites.
== END | disposition home or self-care (01) ==
LOC: RADXRMAIN 11:07
DX: E08.621 Diabetes mellitus due to underlying condition with foot ulcer (principal); L97.522 Non-pressure chronic ulcer of other part of left foot with fat layer exposed; L97.512 Non-pressure chronic ulcer of other part of right foot with fat layer exposed; L03.116 Cellulitis of left lower limb; I73.9 Peripheral vascular disease, unspecified; M79.89 Other specified soft tissue disorders; Z89.432 Acquired absence of left foot

== ENCOUNTER → 2025-03-07 | Outpatient (CLI) | payer MEDICARE, OTHER ==
[2025-03-07 14:21] VITALS: BP 134/77; PULSE 68; RESP 16; TEMP 98; BMI 32.5
--- NOTE | 2025-03-07 15:09 | P.HPBAR ---
Bariatric H&P - History & Physicial H&P Date: 03/07/25 History & Physicial: Visit/CC: f/u Patient initial contact: Initial weight: 154.63 kg Initial weight in pounds: 340.90 Height: 6 ft 3 in Initial BMI: 42.6 Last weight: Current weight: 117.934 kg Current weight in pounds: 260.00 Current BMI: 32.5 [place] body weight (based on NIH guidelines): 89.09 kg Excess body weight loss: 55.9% The patient is a 54 year-old M who presents for Bariatric Assessment. He has BKA of the left foot. He has a prosthetic. He has skin cancer of the foot. OFf insulin. Only on Jardiance. Hgb A1c is getthing higher. Dr. Sparks is [facility] in [place], [place]. Needs bariatric labs. Last colonoscopy in 2022. He had ampation last year. 1 year ago. Colonoscopy in 2022 due for 2025. Needs to correct 2022 note. Labs today. NO vomiting or abdominal pain. Protein average at present weight. Use my fitness pal. Past Medical History Past Medical History: CVA/TIA, Diabetes Mellitus, Deep Vein Thrombosis (DVT), GERD/Reflux, Hypertension, Neurologic Disorder, Sleep Apnea/CPAP/BIPAP Additional Past Medical History / Comment(s): STATES OPEN WOULD ON LEFT FOOT, STATE DR. WEBER IS AWARE. 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 History of Any Multi-Drug Resistant Organisms: MRSA Year Discovered:: 02/11/22 MDRO Source:: foot Past Surgical History: Bariatric Surgery, Orthopedic Surgery Additional Past Surgical History / Comment(s): 12/18/19 EGD. Bilateral feet all digits amputated. Staph infection in left thigh secondary to abcess removed surgically, multiple debridments and skin graft surgeries to bilateral feet, gastric bypass 01-01-20December 2023 BKA Left Past Anesthesia/Blood Transfusion Reactions: Previous Problems w/ Anesthesia, Postoperative Nausea & Vomiting (PONV) Additional Past Anesthesia/Blood Transfusion Reaction / Comm: had "high fever last surgery 04/2019[facility]" anesthesia record obtained from then, no mention of temp or malignant hyperthermia. Past Psychological History: Anxiety, Depression Additional Psychological History / Comment(s): Takes prozac, xanax, lyrica, and cymbalta Smoking Status: Former smoker Past Alcohol Use History: Rare Additional Past Alcohol Use History / Comment(s): quit smoking cigarettes in 2003, Past Drug Use History: Marijuana Additional Drug Use History / Comment(s): Currently uses marijuana. - Past Family History Father Family Medical History: Congestive Heart Failure (CHF), CVA/TIA Additional Family Medical History / Comment(s): at age 79. Mother Family Medical History: Cancer, COPD Additional Family Medical History / Comment(s): Leukemia, at age 80. Surgical - Exam Vital Signs Temp Pulse Resp BP 98.0 F 68 16 134/77 03/07/25 14:05 03/07/25 14:05 03/07/25 14:05 03/07/25 14:05 Bariatric Checklist Checklist: Plan: Checklist: EGD: 1. Hiatal hernia: 2. H. Pylori: HgbA1c: Vitamin D: Smoking: Former smoker Primary care physician referral: DR. Naveen SAUNDERS Psychiatry clearance: Cardiology clearance: Sleep study: Diet journal: VTE risk score: VTE risk level: Rehab needs at discharge:
[2025-03-07 17:01] LABS: INR 0.9 (<1.2); Prothrombin Time 10.6 sec (10.0-12.5)
[2025-03-07 18:18] LABS: HCT 39.4 % (39.6-50.0); HGB 12.3 g/dL (13.0-17.0); MCH 27.2 pg (27.0-32.0); MCHC 31.2 g/dL (32.0-37.0); Mean Platelet Volume 11.6 FL (9.5-12.2); NRBC Per 100 WBC 0 X 10*3/uL (0.00-0.01); Platelet Count 126 X 10*3/uL (140-440); RBC 4.53 X 10*6/uL (4.40-5.60); RDW 13.9 % (11.5-14.5); WBC 5.82 X 10*3/uL (4.50-10.00)
[2025-03-07 18:58] LABS: Prealbumin 28.2 mg/dL (18.0-42.0)
[2025-03-07 21:03] LABS: % Iron Saturation 13.64 (15.00-50.00); ALT 26 U/L (10-49); AST 32 U/L (14-35); Albumin 4.3 g/dL (3.8-4.9); Albumin/Globulin Ratio 1.39 Ratio (1.60-3.17); Alkaline Phosphatase 148 U/L (41-126); BUN/Creat Ratio 16.09 Ratio (12.00-20.00); Blood Urea Nitrogen 17.7 mg/dL (9.0-27.0); Calcium 9.6 mg/dL (8.7-10.3); Carbon Dioxide 23.3 mmol/L (21.6-31.8); Chloride 103 mmol/L (96-109); Chol/HDL Ratio 5.87 Ratio; Ferritin 18.3 ng/mL (22.0-322.0); Globulin 3.1 g/dL (1.6-3.3); Glucose 140 mg/dL (70-110); Iron 60 UG/DL (65-175); LDL Cholesterol,Calculated 137.9 mg/dL (0.0-131.0); Magnesium 2.1 mg/dL (1.5-2.4); Phosphorus 3.4 mg/dL (2.4-5.1); Potassium 4.1 mmol/L (3.5-5.5); Sodium 140 mmol/L (135-145); Total Bilirubin 0.4 mg/dL (0.3-1.2); Total Iron Binding Capacity 440 UG/DL (228-460); Total Protein 7.4 g/dL (6.2-8.2)
[2025-03-08 12:22] LABS: Zinc, Serum 65 ug/dL (60-130)
[2025-03-09 06:57] LABS: Vitamin A 88 ug/dL (38-106)
[2025-03-09 08:14] LABS: Vit B1(Thiamine) 64 ug/L (38-122)
== END ==
LOC: BARWHC3 13:21
PROVIDERS: ATTEND Surgery Plastic and Reconstructive Surgery
DX: E66.01 Morbid (severe) obesity due to excess calories (principal); D50.8 Other iron deficiency anemias; K91.2 Postsurgical malabsorption, not elsewhere classified; E44.1 Mild protein-calorie malnutrition; E45 Retarded development following protein-calorie malnutrition; K74.1 Hepatic sclerosis; N19 Unspecified kidney failure; T56.894A Toxic effect of other metals, undetermined, initial encounter; Z68.32 Body mass index [BMI] 32.0-32.9, adult; Z91.048 Other nonmedicinal substance allergy status; Z87.891 Personal history of nicotine dependence
CPT/HCPCS: 80053; 80061; 82306; 82525; 82607; 82728; 82746; 83036; 83540; 83550; 83735; 83970; 84100; 84134; 84255; 84425; 84443; 84590; 84630; 85027; 85610; 85730; 99211